=== PATIENT | female | born 1955 | race Caucasian/White ===

== ENCOUNTER → 2016-08-25 | Outpatient (CLI) | payer OTHER ==
[2016-01-12 08:37] VITALS: BP 117/78
[~2016-08-25] MED LIST: ACET325T9 PO; ASPI325T4 PO; ASPI81TA2 PO; ASPI81TA9 PO; ATOR20TA PO; ATOR40TA59 PO; BIOT10003 PO; BUPR150T11 PO; BUPR150T6 PO; CALC-98 PO; CANA300T PO; CHOL500016 PO; CRESTOR10 MG PO; DEXL60CA PO; DULO30CA2 PO; FISH12002 PO; GLIM4TAB2 PO; IBUP800T PO; INSU100I13 SQ; INSU100I17 SQ; INSU100V13 SQ; INSU200I SQ; INSU300I SQ; LACT20SO PO; LEVO100T5 PO; LEVO112T2 PO; LEVO125T5 PO; LEVO137T2 PO; LEVO137T3 PO; LISI1TAB3 PO; LISI1TAB5 PO; LISI1TAB7 PO; MECL12.52 PO; MELO-150 PO; METF500T9 PO; METH-37 PO; METO10TA81 PO; METO25TA9 PO; MULT1TAB52 PO; OLME1TAB PO; OMEG1CAP65 PO; OMEP20CA9 PO; PANT40TA3 PO; POTA20TA4 PO; PREG75CA PO; RABE20TA26 PO; RANI150T6 PO; SENN1TAB61 PO; SENN1TAB70 PO; SITA25TA PO; TOPI50TA38 PO; TRAM50TA PO; UBID100C12 PO; [UNRECOGNIZED DRUG - OTHER] PO
--- NOTE | 2016-08-25 12:00 | RAD ---
DATE: 08/25/2016 EXAM: DIGITAL SCREEN BILAT W/CAD HISTORY: Screening study COMPARISON: 06/14/2012 This study was interpreted with the benefit of Computerized Aided Detection (CAD). FINDINGS: Digital MLO and CC mammograms of both breasts were obtained. Comparison is made to the patient's previous mammograms from [facility] in [place], [place] dated 06/14/2012. The breast parenchyma is composed of scattered fibroglandular densities which can obscure a lesion on mammography (breast density code B). Benign-appearing calcifications are seen scattered throughout both breasts. No spiculated mass is seen. No malignant appearing calcification or area of architectural distortion is noted. Since previous examination there is been no significant interval change. IMPRESSION: BI-RADS Category 1, negative. There is no mammographic evidence of malignancy. Routine yearly screening mammography is recommended for follow-up. BI-RADS CATEGORY: 1 NEGATIVE RECOMMENDED FOLLOW-UP: 12M 12 MONTH FOLLOW-UP PQRS compliance statement: Patient information was entered into a reminder system with a target due date 08/25/2017 for the next mammogram. Mammography is a sensitive method for finding small breast cancers, but it does not detect them all and is not a substitute for careful clinical examination. A negative mammogram does not negate a clinically suspicious finding and should not result in delay in biopsying a clinically suspicious abnormality. "Our facility is accredited by the [employer] Mammography Program."
== END | disposition home or self-care (01) ==
LOC: MAMMO 08:00
PROVIDERS: ATTEND Nurse Practitioner
DX: Z12.31 Encounter for screening mammogram for malignant neoplasm of breast (principal)
CPT/HCPCS: G0202; 77067

== ENCOUNTER 2017-01-22 14:14 | Emergency (ER) | payer SELFPAY ==
[~2017-01-22] VITALS: Ht 167.6 cm; Wt 106.1 kg
[~2017-01-22 14:14] MED LIST changes: +ASPI-612 PO; +ASPI-630 PO; -ASPI325T4 PO; +ASPI325T8 PO; -ASPI81TA2 PO; -ASPI81TA9 PO; +BUPR-192 PO; -BUPR150T6 PO; -DEXL60CA PO; +DEXL60CA2 PO; -IBUP800T PO; +IBUP800T19 PO; -MELO-150 PO; +MELO15TA23 PO; +METO-239 PO; -METO25TA9 PO; -OLME1TAB PO; +OLME1TAB21 PO; -UBID100C12 PO; +UBID100C40 PO
[2017-01-22 14:20] VITALS: BP 142/66
--- NOTE | 2017-01-22 15:35 | PHYS DOC ---
Past History Past Medical History: Depression, Diabetes, High Cholesterol, Hypertension, Hypothyroid, Other Past Surgical History: Appendectomy, Cholecystectomy, , Other Alcohol Use: None Drug Use: None Adult General Chief Complaint Chief Complaint: MULTIPLE COMPLAINTS [facility] HPI Patient is a 61 year old F who presents with right sided trunk pain as well as bilateral foot and lower leg tingling. She describes the right-sided trunk pain as both anterior and posterior involving both the abdomen and thorax. She describes the pain as shooting and lasting only seconds. She is unsure about any exacerbating or alleviating factors. She has no other associated symptoms with this pain. She feels that both legs and feet have had knife like pain that has become constant over the past 2-3 weeks. It is worse with weightbearing and better with rest. She has no other associated symptoms with this pain. Over the past several weeks she has noted her sugar to be in the 300 to 400s Review of Systems Review of Systems Constitutional: Denies fever or chills [] Eyes: Denies change in visual acuity, redness, or eye pain [] HENT: Denies nasal congestion or sore throat [] Respiratory: Denies cough or shortness of breath [] Cardiovascular: No additional information not addressed in HPI [] GI: Denies abdominal pain, nausea, vomiting, bloody stools or diarrhea [] : Denies dysuria or hematuria [] Musculoskeletal: Denies back pain or joint pain [] Integument: Denies rash or skin lesions [] Neurologic: Negative except history of present illness Endocrine: polyuria or polydipsia [] Family History Family History Noncontributory Current Medications Current Medications Medications reviewed Allergies Allergies Allergies Coded Allergies Type Severity Reaction Last Updated Verified cephalexin Allergy Intermediate 09/08/15 No codeine Allergy Intermediate 09/08/15 No dapagliflozin Allergy Intermediate 09/08/15 No iodine Allergy Intermediate HIVES, contrast OK when premedicated 09/08/15 Yes Physical Exam Physical Exam Constitutional: Well developed, well nourished, no acute distress, non-toxic appearance. [] HENT: Normocephalic, atraumatic, Eyes: EOMI, conjunctiva normal, no discharge. [] Neck: Normal range of motion, no tenderness, supple, no stridor. [] Cardiovascular:Heart rate regular rhythm, Lungs & Thorax: Bilateral breath sounds clear to auscultation [] Abdomen: Bowel sounds normal, soft, no tenderness, no masses, no pulsatile masses. [] Skin: Warm, dry, no erythema, no rash. [] Back: No tenderness, no CVA tenderness. [] Extremities: No tenderness, no cyanosis, no clubbing, ROM intact, no edema. [] Neurologic: Alert and oriented X 3, normal motor function, normal sensory function, no focal deficits noted. []Subjective tingling noted in bilateral feet Psychologic: Affect normal, judgement normal, mood normal. [] Current Patient Data Vital Signs Vital Signs Date Time Temp Pulse Resp B/P (MAP) Pulse Ox O2 Delivery O2 Flow Rate FiO2 01/22/17 14:20 97.7 92 18 98 Room Air Lab Results Laboratory Tests Test 01/22/17 14:28 Glucose (Fingerstick) 424 mg/dL (70-99) H EKG EKG [] Radiology/Procedures Radiology/Procedures [] Course & Med Decision Making Course & Med Decision Making Pertinent Labs and Imaging studies reviewed. (See chart for details) Further labs and imaging were declined. Because of this she was strongly advised to return to the emergency room if she develops any new or worsening symptoms Dragon Disclaimer Dragon Disclaimer This chart was dictated in whole or in part using Voice Recognition software in a busy, high-work load, and often noisy Emergency Department environment. It may contain unintended and wholly unrecognized errors or omissions. Departure Departure: Impression: Primary Impression: Neuropathy Disposition: HOME, SELF-CARE Condition: STABLE Referrals: WILLEM ARRIAGA-Giovana (PCP) Patient Instructions: Diabetic Neuropathy, Pain, Neuropathic Additional Instructions: Ivis was seen in the emergency room for pain in her feet and right-sided pain. No emergency medical condition was found on history or physical exam. Her symptoms are most consistent with neuropathic pain related to diabetes and/or fibromyalgia. She was advised follow-up with her primary care doctor as soon as possible for further management. GREGOR PALAFOX MD Jan 22, 2017 15:35
== END 2017-01-22 15:49 | disposition home or self-care (01) ==
LOC: ER 14:17
DX: E11.40 Type 2 diabetes mellitus with diabetic neuropathy, unspecified (principal); I10 Essential (primary) hypertension; E03.9 Hypothyroidism, unspecified; E78.00 Pure hypercholesterolemia, unspecified; Z88.5 Allergy status to narcotic agent; Z88.8 Allergy status to other drugs, medicaments and biological substances; Z88.1 Allergy status to other antibiotic agents; Z91.041 Radiographic dye allergy status
CPT/HCPCS: 82947; 99283

== ENCOUNTER → 2017-02-15 | Outpatient (CLI) | payer OTHER ==
[2017-01-22 14:20] VITALS: BP 142/66
[~2017-02-15] MED LIST changes: -BIOT10003 PO; +BIOT10006 PO
--- NOTE | 2017-02-15 12:26 | RAD ---
Abdominal ultrasound, 02/15/2017: History: Right lower quadrant pain The gallbladder is surgically absent. There is no evidence of a hepatic mass or bile duct dilatation. The pancreas was obscured by overlying bowel. The spleen is of normal size. No renal abnormality is detected. The visualized portions of the abdominal aorta are of normal caliber. Other portions of the aorta and inferior vena cava were obscured by overlying bowel in this large patient. No free fluid is evident in the abdomen. IMPRESSION: 1. Status post cholecystectomy. 2. The abdomen is otherwise unremarkable, although the pancreas and central retroperitoneum were obscured by overlying bowel.
--- NOTE | 2017-02-15 14:02 | RAD ---
Pelvic ultrasound, 02/15/2017: History: Right lower quadrant pain Transabdominal scans were obtained. The uterus and left ovary are reportedly surgically absent. The patient reports that part of the right ovary was left in place, however, no right ovary is visualized sonographically. No pelvic mass or abnormal fluid collection is seen. IMPRESSION: 1. Status post hysterectomy. 2. No pelvic abnormality is detected. 3. CT scanning may be useful for further evaluation, if clinically indicated.
== END | disposition home or self-care (01) ==
LOC: US 09:31
PROVIDERS: ATTEND Family Medicine
DX: E72.20 Disorder of urea cycle metabolism, unspecified (principal); R10.31 Right lower quadrant pain; Z90.710 Acquired absence of both cervix and uterus; Z90.721 Acquired absence of ovaries, unilateral
CPT/HCPCS: 76700; 76856

== ENCOUNTER → 2017-06-06 | Outpatient (CLI) | payer BC ==
--- NOTE | 2017-06-06 08:15 | RAD ---
Cervical spine, 3 views, 06/06/2017: History: Neck pain There is mild disc space narrowing and marginal spurring at C5-6 and C6-7. No fracture or dislocation is identified. The prevertebral soft tissues are unremarkable. IMPRESSION: 1. Mild degenerative disc disease at C5-6 and C6-7. 2. No acute bony abnormality is detected.
== END | disposition home or self-care (01) ==
LOC: PMG 07:35
PROVIDERS: ATTEND Physician Assistant Medical
DX: M50.323 Other cervical disc degeneration at C6-C7 level (principal); F17.200 Nicotine dependence, unspecified, uncomplicated
CPT/HCPCS: 72040

== ENCOUNTER → 2017-06-28 | Outpatient (CLI) | payer BC ==
--- NOTE | 2017-06-28 12:18 | RAD ---
Right upper quadrant ultrasound 06/28/2017 Indication: Elevated liver enzymes Comparison study: None Discussion: Ultrasound evaluation of the right upper quadrant was performed. Static images are submitted to PACS. The pancreas is not visualized secondary to overlying gas-filled bowel. The IVC is poorly visualized. Prior cholecystectomy is noted. The liver is partially visualized. Portal venous flow appears to be in the normal direction. Portions of the dome liver are particularly obscured. The liver appears to be mildly diffusely hyperechoic. Findings suggest hepatic steatosis. Liver is top normal in size measuring 17 cm longitudinally. Visualized portions of liver demonstrate no focal abnormality. The right kidney is unremarkable in appearance measuring 11.8 cm in length. Impression: 1. Limited study 2. Possible hepatic steatosis 3. Prior cholecystectomy
== END | disposition home or self-care (01) ==
LOC: US 07:37
PROVIDERS: ATTEND Physician Assistant Medical
DX: R79.89 Other specified abnormal findings of blood chemistry (principal); I12.9 Hypertensive chronic kidney disease with stage 1 through stage 4 chronic kidney disease, or unspecified chronic kidney disease; E11.22 Type 2 diabetes mellitus with diabetic chronic kidney disease; E11.43 Type 2 diabetes mellitus with diabetic autonomic (poly)neuropathy; Z79.4 Long term (current) use of insulin; N18.3 Chronic kidney disease, stage 3 (moderate); F17.200 Nicotine dependence, unspecified, uncomplicated
CPT/HCPCS: 76705

== ENCOUNTER 2017-07-08 13:04 | Emergency (ER) | payer BC ==
[~2017-07-08] VITALS: Ht 167.6 cm; Wt 99.1 kg
--- NOTE | 2017-07-08 13:35 | EKG ---
[address] [address] Test Date: 2017-07-08 Test Time: 13:33:12 Pat Name: JW HOLLAND Department: Room: Gender: F Doper Operator: : 1955 Requested By: KATIE MARTINEZ Order Number: [id number] Reading MD: Measurements Intervals [place] Rate: 101 P: -17 VT: 120 QRS: 19 QRSD: 86 T: 28 QT: 360 QTc: 468 Interpretive Statements SINUS TACHYCARDIA QRS(T) CONTOUR ABNORMALITY CONSIDER ANTEROSEPTAL MYOCARDIAL DAMAGE POSSIBLY ABNORMAL ECG RI6.01 Compared to ECG 01/07/2016 16:06:00 Sinus rhythm no longer present
[2017-07-08 13:42] LABS: BASO % 0 % (0-3); EOS # 0.1 x10^3/uL (0.0-0.7); EOS % 1 % (0-3); HEMATOCRIT 43.9 % (36.0-47.0); HEMOGLOBIN 14.5 g/dL (12.0-15.5); LYMPH # 1.9 x10^3/uL (1.0-4.8); LYMPH % 27 % (24-48); MEAN CORPUSCULAR HEMOGLOBIN 28 pg (25-35); MEAN CORPUSCULAR HGB CONC 33 g/dL (31-37); MEAN CORPUSCULAR VOLUME 85 fL (79-100); MONO # 0.7 x10^3/uL (0.0-1.1); MONO % 10 % (0-9); NEUT # 4.3 x10^3uL (1.8-7.7); NEUT % 61 % (31-73); PLATELET COUNT 139 x10^3/uL (140-400); RED BLOOD COUNT 5.14 x10^6/uL (3.50-5.40); RED CELL DISTRIBUTION WIDTH 18.6 % (11.5-14.5); WHITE BLOOD COUNT 7.1 x10^3/uL (4.0-11.0)
[2017-07-08 13:58] LABS: BGAS PH 7.48 (7.35-7.45)
[2017-07-08 14:06] LABS: ALBUMIN 3.3 g/dL (3.4-5.0); ALBUMIN/GLOBULIN RATIO 0.7 (1.0-1.7); CALCIUM 9.4 mg/dL (8.5-10.1); CREATININE 0.8 mg/dL (0.6-1.0); GFR 72.9; POTASSIUM 3.9 mmol/L (3.5-5.1); TOTAL BILIRUBIN 0.9 mg/dL (0.2-1.0); TOTAL PROTEIN 7.8 g/dL (6.4-8.2)
--- NOTE | 2017-07-08 14:09 | RAD ---
Indication: Confusion, dizziness, headache and weakness for 2 weeks. Technique: CT head without IV contrast Comparison: Previous study from 01/07/2016 Findings: No pathologic extra-axial or intra-axial fluid collection. The ventricles and basal cisterns are within normal limits. No acute intracranial lead. No focal loss of walton-white differentiation. No calvarial lesions. Visualized paranasal sinuses and mastoid air cells are clear. Orbits are within normal limits. Impression: No acute intracranial process on this noncontrast study. PQRS Compliance Statement: One or more of the following individualized dose reduction techniques were utilized for this examination: 1. Automated exposure control 2. Adjustment of the mA and/or kV according to patient size 3. Use of iterative reconstruction technique
--- NOTE | 2017-07-08 14:10 | RAD ---
PROCEDURE: PORTABLE CHEST 1V CLINICAL INDICATION: confusion COMPARISON: Previous study from 01/07/2016 FINDINGS: No pneumothorax identified. Cardiac and mediastinal contours unremarkable. No pulmonary consolidation or acute airspace disease. No acute osseous abnormalities identified. IMPRESSION: No pulmonary consolidation or acute airspace disease.
[2017-07-08] MEDS ORDERED: IV NORMAL SALINE 1,000ML 1,000 ML IV ONE (14:30)
[2017-07-08] MEDS ORDERED: ONDANSETRON PF 4 MG/2 ML VIAL. IV ONE (14:30)
[2017-07-08] MEDS ORDERED: PIPERACILLIN/TAZOBACTAM 3.375 GM in IV NORMAL SALINE 50ML 50 ML IV ONE (14:30)
[2017-07-08] MEDS ORDERED: LACTULOSE 20 GM/30 ML SOLUTION. PO ONE (14:30)
[2017-07-08] MEDS ORDERED: PIPERACILLIN/TAZOBACTAM 3.375 GM VIAL IV ONE (14:38)
[2017-07-08] MEDS ORDERED: IV NORMAL SALINE 50ML 50 ML ONE (14:38)
[2017-07-08 15:17] LABS: AMPHETAMINE/METHAMPHETAMINE NEG (NEG); BARBITURATES NEG (NEG); BENZODIAZEPINES NEG (NEG); CANNABINOIDS NEG (NEG); COCAINE NEG (NEG); METHADONE NEG (NEG); OPIATES POS (NEG); PHENCYCLIDINE NEG (NEG)
[2017-07-08 15:21] LABS: BACTERIA,URINE 0 /HPF (0-FEW); BILIRUBIN,URINE NEG (NEG); CLARITY,URINE CLEAR; COLOR,URINE YELLOW; GLUCOSE,URINE NEG (NEG); NITRITE,URINE NEG (NEG); RBC,URINE RARE /HPF (0-2); SQUAMOUS EPITHELIAL CELL,UR MOD /LPF; UROBILINOGEN,URINE 0.2 mg/dL (0.2 mg/dL); WBC,URINE OCC /HPF (0-4)
--- NOTE | 2017-07-08 15:33 | PHYS DOC ---
Past History Past Medical History: Depression, Diabetes, High Cholesterol, Hypertension, Hypothyroid, Other Past Surgical History: Appendectomy, Cholecystectomy, , Other Alcohol Use: None Drug Use: None Adult General Chief Complaint Chief Complaint: NAUSEA/VOMITING/DIARRHEA HPI HPI 62-year-old female patient with multiple medical problems and history of elevation of ammonia brought in by her friend because of increasing confusion for one month and complaining of right chest wall pain intermittently. Patient had 3 episodes of vomiting today. Patient had a blood test one week ago at her doctor's office and had an ammonia level of 155 and was told continue lactulose. Patient is alert and oriented but responding slow and unable to give history and history was taking from her friend. Patient did not have history of on Cardizem, hepatitis, cirrhosis, cancer. Patient had 1 episode of high ammonia level with hospitalization without finding problem. Patient currently taking lactulose. Review of Systems Review of Systems Constitutional: Denies fever or chills [] Eyes: Denies change in visual acuity, redness, or eye pain [] HENT: Denies nasal congestion or sore throat [] Respiratory: Denies cough or shortness of breath [] Cardiovascular: No additional information not addressed in HPI [] GI: Denies abdominal pain, bloody stools or diarrhea [, reports nausea and vomiting] : Denies dysuria or hematuria [] Musculoskeletal: Denies back pain or joint pain [] Integument: Denies rash or skin lesions [] Neurologic: Denies headache, focal weakness or sensory changes, reports confusion [] Endocrine: Denies polyuria or polydipsia [] All other systems were reviewed and found to be within normal limits, except as documented in this note. Current Medications Current Medications Current Medications Medications (Trade) Dose Ordered Sig/Akbar Start Time Stop Time Status Last Admin Dose Admin Lactulose (Lactulose) 40 gm 1X ONCE 07/08/17 14:30 07/08/17 14:31 DC Ondansetron HCl (Zofran) 4 mg 1X ONCE 07/08/17 14:30 07/08/17 14:31 DC 07/08/17 14:43 4 MG Piperacillin Sod/ Tazobactam Sod (Zosyn) 3.375 gm STK-MED ONCE 07/08/17 14:38 07/08/17 14:39 DC Piperacillin Sod/ Tazobactam Sod 3.375 gm/Sodium Chloride 50 ml @ 100 mls/hr 1X ONCE 07/08/17 14:30 07/08/17 14:59 DC 07/08/17 14:43 100 MLS/HR Sodium Chloride 50 ml @ As Directed STK-MED ONCE 07/08/17 14:38 07/08/17 14:39 DC Allergies Allergies Allergies Coded Allergies Type Severity Reaction Last Updated Verified cephalexin Allergy Intermediate 09/08/15 No codeine Allergy Intermediate 09/08/15 No dapagliflozin Allergy Intermediate 09/08/15 No iodine Allergy Intermediate HIVES, contrast OK when premedicated 09/08/15 Yes Physical Exam Physical Exam Constitutional: Mild distress, non-toxic appearance. [] HENT: Normocephalic, atraumatic, bilateral external ears normal, oropharynx moist, no oral exudates, nose normal. [] Eyes: PERRLA, EOMI, conjunctiva normal, no discharge. [] Neck: Normal range of motion, no tenderness, supple, no stridor. [] Cardiovascular:Heart rate regular rhythm, no murmur [] Lungs & Thorax: Bilateral breath sounds clear to auscultation [] Abdomen: Bowel sounds normal, soft, no tenderness, no masses, no pulsatile masses. [] Skin: Warm, dry, no erythema, no rash. [] Back: No tenderness, no CVA tenderness. [] Extremities: No tenderness, no cyanosis, no clubbing, ROM intact, no edema. [] Neurologic: Alert and oriented X 3, slow respond to question and movement[] Current Patient Data Vital Signs Vital Signs Date Time Temp Pulse Resp B/P (MAP) Pulse Ox O2 Delivery O2 Flow Rate FiO2 07/08/17 14:55 98 18 163/59 (93) 98 Room Air 07/08/17 13:33 98.1 Lab Results Laboratory Tests Test 07/08/17 13:22 07/08/17 13:28 Blood pH 7.48 (7.35-7.45) H Blood Gas PCO2 34 mmHg (35-45) L Blood Gas PO2 77 mmHg (80-100) L Blood Gas HCO3 25 mmol/L (22-26) Arterial Bld O2 Saturation (Calc) 96 % (92-99) FiO2 21 % White Blood Count 7.1 x10^3/uL (4.0-11.0) Red Blood Count 5.14 x10^6/uL (3.50-5.40) Hemoglobin 14.5 g/dL (12.0-15.5) Hematocrit 43.9 % (36.0-47.0) Mean Corpuscular Volume 85 fL (79-100) Mean Corpuscular Hemoglobin 28 pg (25-35) Mean Corpuscular Hemoglobin Concent 33 g/dL (31-37) Red Cell Distribution Width 18.6 % (11.5-14.5) H Platelet Count 139 x10^3/uL (140-400) L Neutrophils (%) (Auto) 61 % (31-73) Lymphocytes (%) (Auto) 27 % (24-48) Monocytes (%) (Auto) 10 % (0-9) H Eosinophils (%) (Auto) 1 % (0-3) Basophils (%) (Auto) 0 % (0-3) Neutrophils # (Auto) 4.3 x10^3uL (1.8-7.7) Lymphocytes # (Auto) 1.9 x10^3/uL (1.0-4.8) Monocytes # (Auto) 0.7 x10^3/uL (0.0-1.1) Eosinophils # (Auto) 0.1 x10^3/uL (0.0-0.7) Basophils # (Auto) 0.0 x10^3/uL (0.0-0.2) Prothrombin Time 11.6 SEC (9.4-11.4) H Prothrombin Time INR 1.1 (0.9-1.1) PTT 24 SEC (23-33) Sodium Level 141 mmol/L (136-145) Potassium Level 3.9 mmol/L (3.5-5.1) Chloride Level 105 mmol/L (98-107) Carbon Dioxide Level 27 mmol/L (21-32) Anion Gap 9 (6-14) Blood Urea Nitrogen 14 mg/dL (7-20) Creatinine 0.8 mg/dL (0.6-1.0) Estimated GFR (Cockcroft-Gault) 72.9 BUN/Creatinine Ratio 18 (6-20) Glucose Level 204 mg/dL (70-99) H Lactic Acid Level 2.2 mmol/L (0.4-2.0) H Calcium Level 9.4 mg/dL (8.5-10.1) Magnesium Level 2.0 mg/dL (1.8-2.4) Total Bilirubin 0.9 mg/dL (0.2-1.0) Aspartate Amino Transferase (AST) 56 U/L (15-37) H Alanine Aminotransferase (ALT) 47 U/L (14-59) Alkaline Phosphatase 171 U/L (46-116) H Ammonia 129 mcmol/L (11-34) H Creatine Kinase 128 U/L (26-192) Creatine Kinase MB (Mass) 1.1 ng/mL (0.0-3.6) Creatine Kinase MB Relative Index 0.9 % (0-4) Troponin I Quantitative < 0.017 ng/mL (0-0.055) [id number] Natriuretic Peptide 6 pg/mL (0-124) Total Protein 7.8 g/dL (6.4-8.2) Albumin 3.3 g/dL (3.4-5.0) L Albumin/Globulin Ratio 0.7 (1.0-1.7) L Lipase 137 U/L (73-393) EKG EKG [] Radiology/Procedures Radiology/Procedures [] [address] [address] IMAGING REPORT Signed PATIENT: JW HOLLAND ACCOUNT: [id number] : 1955 LOCATION: ER AGE: 62 SEX: F EXAM STATUS: REG ER ORD. PHYSICIAN: KATIE MARTINEZ MD REASON: confusion PROCEDURE: PORTABLE CHEST 1V PROCEDURE: PORTABLE CHEST 1V CLINICAL INDICATION: confusion COMPARISON: Previous study from 01/07/2016 FINDINGS: No pneumothorax identified. Cardiac and mediastinal contours unremarkable. No pulmonary consolidation or acute airspace disease. No acute osseous abnormalities identified. IMPRESSION: No pulmonary consolidation or acute airspace disease. DICTATED AND SIGNED BY: ERENDIRA DOE DO DATE: 07/08/17 1401 CC: KATIE MARTINEZ MD; DELORIS KOROMA ~ [address] [address] IMAGING REPORT Signed PATIENT: JW HOLLAND ACCOUNT: [id number] : 1955 LOCATION: ER AGE: 62 SEX: F EXAM STATUS: REG ER ORD. PHYSICIAN: KATIE MARTINEZ MD REASON: confusion PROCEDURE: CT HEAD WO CONTRAST Indication: Confusion, dizziness, headache and weakness for 2 weeks. Technique: CT head without IV contrast Comparison: Previous study from 01/07/2016 Findings: No pathologic extra-axial or intra-axial fluid collection. The ventricles and basal cisterns are within normal limits. No acute intracranial lead. No focal loss of walton-white differentiation. No calvarial lesions. Visualized paranasal sinuses and mastoid air cells are clear. Orbits are within normal limits. Impression: No acute intracranial process on this noncontrast study. PQRS Compliance Statement: One or more of the following individualized dose reduction techniques were utilized for this examination: 1. Automated exposure control 2. Adjustment of the mA and/or kV according to patient size 3. Use of iterative reconstruction technique DICTATED AND SIGNED BY: ERENDIRA DOE DO DATE: 07/08/17 1404 CC: KATIE MARTINEZ MD; DELORIS KOROMA ~ Course & Med Decision Making Course & Med Decision Making Pertinent Labs and Imaging studies reviewed. (See chart for details) Evaluation of patient in ER showed 62-year-old female patient with history of hepatic encephalopathy brought in because of increase of confusion and nausea and vomiting. Patient had mild confusion but was able to answer to question delay. Ammonia level was 129 and previous ammonia level was around 30-60s with maximum level of 112. Liver enzymes was mildly elevated. Lactic acid was 2.2. 1 dose of Zosyn was given. UA is pending. Dr. Marrufo on-call hospitalist was informed at [phone] and he recommended to transfer patient to [facility] to have GI specialist available. Dr. Argueta on-call hospitalist at [facility] accepted transfer at 1435. Patient informed about plan of care. 1 dose of lactulose by mouth was given in ER. [] Dragon Disclaimer Dragon Disclaimer This electronic medical record was generated, in whole or in part, using a voice recognition dictation system. Departure Departure: Impression: Primary Impression: Hepatic encephalopathy Additional Impressions: Elevated lactic acid level Uncontrolled diabetes mellitus Nausea and vomiting Disposition: XFER SHT-TRM HOSP ([facility] at 1435) Condition: IMPROVED Referrals: DELORIS KOROMA (PCP) Critical Care Time Critical care time was [70] minutes exclusive of procedures. Problem Qualifiers KATIE MARTINEZ MD Jul 08, 2017 15:33
[2017-07-08 16:16] VITALS: BP 152/67
== END 2017-07-08 17:20 | disposition short-term general hospital (02) ==
LOC: ER 13:04
DX: K72.90 Hepatic failure, unspecified without coma (principal); R74.0 Nonspecific elevation of levels of transaminase and lactic acid dehydrogenase [LDH]; E11.9 Type 2 diabetes mellitus without complications; E78.00 Pure hypercholesterolemia, unspecified; E03.9 Hypothyroidism, unspecified; I10 Essential (primary) hypertension; F32.9 Major depressive disorder, single episode, unspecified; Z88.5 Allergy status to narcotic agent; Z88.8 Allergy status to other drugs, medicaments and biological substances; Z88.1 Allergy status to other antibiotic agents; Z91.041 Radiographic dye allergy status
CPT/HCPCS: 36415; 36600; 70450; 71045; 80053; 80307; 81001; 82140; 82553; 82803; 83605; 83690; 83735; 83880; 84484; 85025; 85610; 85730; 93005; 96365; 96366; 96375; 99291; J2405; J2543; G0479; J7030

== ENCOUNTER → 2017-07-23 | Outpatient (CLI) | payer BC ==
[2017-07-08 16:16] VITALS: BP 152/67
--- NOTE | 2017-07-23 09:15 | RAD ---
Left wrist, 4 views, 07/23/2017: History: Pain, wrist injury There is an old nonunited fracture fragment or accessory ossicle at the tip of the styloid process of the distal ulna. Mild deformity of the styloid process of the distal radius appears old. No acute fracture or dislocation is identified. IMPRESSION: No acute bony abnormality is detected.
== END | disposition home or self-care (01) ==
LOC: PMG 07:45
PROVIDERS: ATTEND Physician Assistant Medical
DX: M25.532 Pain in left wrist (principal)
CPT/HCPCS: 73110

== ENCOUNTER 2017-10-12 17:18 | Emergency (ER) | payer BC ==
[~2017-10-12] VITALS: Ht 167.6 cm; Wt 105.8 kg
[~2017-10-12 17:18] MED LIST changes: +RANI150T21 PO; -RANI150T6 PO
[2017-10-12] MEDS ORDERED: IV NORMAL SALINE 1,000ML 1,000 ML IV ONE (18:15)
[2017-10-12 19:18] LABS: BASO % 0 % (0-3); EOS # 0.1 x10^3/uL (0.0-0.7); EOS % 1 % (0-3); HEMATOCRIT 42.9 % (36.0-47.0); HEMOGLOBIN 14.2 g/dL (12.0-15.5); LYMPH # 3.3 x10^3/uL (1.0-4.8); LYMPH % 33 % (24-48); MEAN CORPUSCULAR HEMOGLOBIN 31 pg (25-35); MEAN CORPUSCULAR HGB CONC 33 g/dL (31-37); MEAN CORPUSCULAR VOLUME 93 fL (79-100); MONO # 0.9 x10^3/uL (0.0-1.1); MONO % 9 % (0-9); NEUT # 5.9 x10^3uL (1.8-7.7); NEUT % 58 % (31-73); PLATELET COUNT 136 x10^3/uL (140-400); RED BLOOD COUNT 4.61 x10^6/uL (3.50-5.40); RED CELL DISTRIBUTION WIDTH 15.9 % (11.5-14.5); WHITE BLOOD COUNT 10.2 x10^3/uL (4.0-11.0)
[2017-10-12 19:27] LABS: ALBUMIN 2.8 g/dL (3.4-5.0); CALCIUM 9.3 mg/dL (8.5-10.1); CREATININE 0.9 mg/dL (0.6-1.0); DIRECT BILIRUBIN 0.2 mg/dL (0.0-0.2); GFR 63.7; POTASSIUM 4.1 mmol/L (3.5-5.1); TOTAL BILIRUBIN 0.7 mg/dL (0.2-1.0); TOTAL PROTEIN 6.7 g/dL (6.4-8.2)
[2017-10-12 19:59] LABS: BILIRUBIN,URINE NEG (NEG); CLARITY,URINE CLEAR; COLOR,URINE YELLOW; GLUCOSE,URINE >=1000 mg/dL (NEG); NITRITE,URINE NEG (NEG); UROBILINOGEN,URINE 0.2 mg/dL (0.2 mg/dL)
[2017-10-12 20:00] LABS: BACTERIA,URINE 0 /HPF (0-FEW); RBC,URINE 0 /HPF (0-2); SQUAMOUS EPITHELIAL CELL,UR MOD /LPF; WBC,URINE 0 /HPF (0-4)
[2017-10-12 20:15] VITALS: BP 117/79
--- NOTE | 2017-10-12 20:30 | ED.ADGEN ---
Past History Past Medical History: Depression, Diabetes, High Cholesterol, Hypertension, Hypothyroid, Other Past Surgical History: Appendectomy, Cholecystectomy, , Hysterectomy, Tonsillectomy, Other Alcohol Use: None Drug Use: None Adult General HPI HPI Patient is a 62 who presents at the request of her primary care doctor for evaluation of possible hyperammonemia. The patient has a known history of elevated ammonia levels. She was previously treated with lactulose for this condition. She is followed at the [facility] for liver failure. She had recently been taken off of the lactulose for reasons that are unclear to the family. Over the last several days, they have noted her to have some slowing of her speech. They state these are the early signs of elevated ammonia for this patient. She is not currently taking lactulose. She did undergo a transarterial liver biopsy at [facility] yesterday. She has not been having any associated complications following this procedure. I did call the primary care doctor earlier this evening and were told to go to the ER to have the ammonia level checked. The patient herself has no immediate complaints. She has no shortness of breath or chest pain. She has no focal neurologic complaints. She is alert and oriented. She is answering all questions appropriately. Review of Systems Review of Systems Constitutional: Denies fever or chills Eyes: Denies change in visual acuity HENT: Denies nasal congestion or sore throat Respiratory: Denies cough or shortness of breath Cardiovascular: No additional information not addressed in HPI GI: Denies abdominal pain, nausea, vomiting, bloody stools or diarrhea : Denies dysuria or hematuria Musculoskeletal: Denies back pain or joint pain Integument: Denies rash or skin lesions Neurologic: Denies headache, focal weakness or sensory changes Endocrine: Denies polyuria or polydipsia All other systems were reviewed and found to be within normal limits, except as documented in this note. Current Medications Current Medications Current Medications Medications (Trade) Dose Ordered Sig/Akbar Start Time Stop Time Status Last Admin Dose Admin Sodium Chloride 1,000 ml @ 500 mls/hr 1X ONCE 10/12/17 18:15 10/12/17 20:14 DC Allergies Allergies Allergies Coded Allergies Type Severity Reaction Last Updated Verified cephalexin Allergy Intermediate 09/08/15 No codeine Allergy Intermediate 09/08/15 No dapagliflozin Allergy Intermediate 09/08/15 No iodine Allergy Intermediate HIVES, contrast OK when premedicated 4/27/16 Yes Physical Exam Physical Exam Constitutional: Well developed, well nourished, no acute distress HENT: Normocephalic, atraumatic, bilateral external ears normal, oropharynx moist Eyes: PERRLA, EOMI, conjunctiva normal Neck: Normal range of motion, no tenderness, supple Cardiovascular:Heart rate regular rhythm, no murmur Lungs & Thorax: Bilateral breath sounds clear to auscultation Abdomen: Bowel sounds normal, soft, no tenderness Skin: Warm, dry, no erythema, no rash Extremities: No tenderness, no edema Neurologic: Alert and oriented X 3 but she is slow to answer questions although she answers questions appropriately. She has no asterixis. Her cranial nerves II through XII are intact bilaterally. She has a normal steady gait. Psychologic: Affect normal, judgement normal, mood normal. [] Current Patient Data Vital Signs Vital Signs Date Time Temp Pulse Resp B/P (MAP) Pulse Ox O2 Delivery O2 Flow Rate FiO2 10/12/17 20:15 97.6 78 26 117/79 (92) 98 Room Air Lab Results Laboratory Tests Test 10/12/17 17:52 10/12/17 18:54 10/12/17 19:19 Glucose (Fingerstick) 369 mg/dL (70-99) H White Blood Count 10.2 x10^3/uL (4.0-11.0) Red Blood Count 4.61 x10^6/uL (3.50-5.40) Hemoglobin 14.2 g/dL (12.0-15.5) Hematocrit 42.9 % (36.0-47.0) Mean Corpuscular Volume 93 fL (79-100) Mean Corpuscular Hemoglobin 31 pg (25-35) Mean Corpuscular Hemoglobin Concent 33 g/dL (31-37) Red Cell Distribution Width 15.9 % (11.5-14.5) H Platelet Count 136 x10^3/uL (140-400) L Neutrophils (%) (Auto) 58 % (31-73) Lymphocytes (%) (Auto) 33 % (24-48) Monocytes (%) (Auto) 9 % (0-9) Eosinophils (%) (Auto) 1 % (0-3) Basophils (%) (Auto) 0 % (0-3) Neutrophils # (Auto) 5.9 x10^3uL (1.8-7.7) Lymphocytes # (Auto) 3.3 x10^3/uL (1.0-4.8) Monocytes # (Auto) 0.9 x10^3/uL (0.0-1.1) Eosinophils # (Auto) 0.1 x10^3/uL (0.0-0.7) Basophils # (Auto) 0.0 x10^3/uL (0.0-0.2) Sodium Level 134 mmol/L (136-145) L Potassium Level 4.1 mmol/L (3.5-5.1) Chloride Level 100 mmol/L (98-107) Carbon Dioxide Level 27 mmol/L (21-32) Anion Gap 7 (6-14) Blood Urea Nitrogen 25 mg/dL (7-20) H Creatinine 0.9 mg/dL (0.6-1.0) Estimated GFR (Cockcroft-Gault) 63.7 Glucose Level 376 mg/dL (70-99) H Calcium Level 9.3 mg/dL (8.5-10.1) Total Bilirubin 0.7 mg/dL (0.2-1.0) Direct Bilirubin 0.2 mg/dL (0.0-0.2) Aspartate Amino Transferase (AST) 32 U/L (15-37) Alanine Aminotransferase (ALT) 40 U/L (14-59) Alkaline Phosphatase 165 U/L (46-116) H Ammonia 50 mcmol/L (11-34) H Total Protein 6.7 g/dL (6.4-8.2) Albumin 2.8 g/dL (3.4-5.0) L Urine Collection Type Void Urine Color Yellow Urine Clarity Clear Urine pH 6.0 Urine Specific [place] 1.025 Urine Protein Neg (NEG-TRACE) Urine Glucose (UA) >=1000 mg/dL (NEG) Urine Ketones (Stick) Trace mg/dL (NEG) Urine Blood Neg (NEG) Urine Nitrite Neg (NEG) Urine Bilirubin Neg (NEG) Urine Urobilinogen Dipstick 0.2 mg/dL (0.2 mg/dL) Urine Leukocyte Esterase Neg (NEG) Urine RBC 0 /HPF (0-2) Urine WBC 0 /HPF (0-4) Urine Squamous Epithelial Cells Mod /LPF Urine Bacteria 0 /HPF (0-FEW) EKG EKG [] Radiology/Procedures Radiology/Procedures [] Course & Med Decision Making Course & Med Decision Making Pertinent Labs and Imaging studies reviewed. (See chart for details) Patient was seen and examined in the emergency department. She had basic labs and urinalysis completed. There were no acute findings. Her ammonia level was 50. The upper limit of normal is 34. It is unclear if this level is high enough to cause her symptoms although the family states that it is. She had no asterixis. She had no acute findings consistent with encephalopathy this visit. Her neurologic exam was otherwise normal. I did offer the patient a CT scan of the head to further evaluate for any sort of slowing of her speech symptoms although both the patient and her family member declined this study. They were requesting discharge stating that only needed to know if she should start her lactulose are not. I advised that it would be harmless for her to start the lactulose and then it may be of benefit. They are also advised to follow-up with her primary care doctor on Sunday or return to the ER over the weekend if she develops any new or more worrisome symptoms. Final Impression Final Impression Mildly elevated ammonia level Gabrielle Disclaimer Gabrielle Disclaimer This electronic medical record was generated, in whole or in part, using a voice recognition dictation system. BLANCA MOROCHO DO Oct 12, 2017 20:30
== END 2017-10-12 20:20 | disposition home or self-care (01) ==
LOC: ER 17:18
DX: E72.20 Disorder of urea cycle metabolism, unspecified (principal); E11.9 Type 2 diabetes mellitus without complications; E78.00 Pure hypercholesterolemia, unspecified; I10 Essential (primary) hypertension; E03.9 Hypothyroidism, unspecified; Z90.49 Acquired absence of other specified parts of digestive tract; Z98.890 Other specified postprocedural states; Z90.710 Acquired absence of both cervix and uterus; Z88.1 Allergy status to other antibiotic agents; Z88.5 Allergy status to narcotic agent; Z88.8 Allergy status to other drugs, medicaments and biological substances; Z91.041 Radiographic dye allergy status
CPT/HCPCS: 36415; 80048; 80076; 81001; 82140; 82947; 85025; 99284

== ENCOUNTER 2017-10-14 21:21 | Inpatient (IN) | payer BC ==
[~2017-10-14] VITALS: Ht 167.6 cm; Wt 107.0 kg
--- NOTE | 2017-10-14 22:44 | PHYS DOC ---
Past History Past Medical History: Depression, Diabetes, High Cholesterol, Hypertension, Hypothyroid, Other Past Surgical History: Appendectomy, Cholecystectomy, , Hysterectomy, Tonsillectomy, Other Alcohol Use: None Drug Use: None Adult General Chief Complaint Chief Complaint: WEAKNESS/GENERALIZED HPI HPI Patient is a 62 year old female who presents with her to the emergency department for evaluation of disorientation and generalized weakness. The patient was seen 2 days ago in the emergency department where she was found to have mildly elevated ammonia levels. The patient is currently having this worked up at [facility] and underwent a biopsy earlier this week with results pending at this time. The cause of the patient's elevated ammonia levels is unclear. The patient after evaluation 2 days ago was instructed to start on lactulose which she has done. Despite taking lactulose, the patient and the patient's state that she has becoming more weak and having difficulty with her balance. She is also given having disorientation at home though she is answering my questions appropriately at this time. Patient denies any localizing weakness or pain at this time. The patient's concerned that her ammonia levels are high and she has had similar symptoms in the past when they were high requiring hospitalization and treatment. Review of Systems Review of Systems Constitutional: Denies fever or chills [] Eyes: Denies change in visual acuity, redness, or eye pain [] HENT: Denies nasal congestion or sore throat [] Respiratory: Denies cough or shortness of breath [] Cardiovascular: Denies chest pain or edema[] GI: Denies abdominal pain, nausea, vomiting, bloody stools or diarrhea [] : Denies dysuria or hematuria [] Musculoskeletal: Denies back pain or joint pain [] Integument: Denies rash or skin lesions [] Neurologic: Disorientation, headache, denies focal weakness or sensory changes [ ] All other systems were reviewed and found to be within normal limits, except as documented in this note. Allergies Allergies Allergies Coded Allergies Type Severity Reaction Last Updated Verified cephalexin Allergy Intermediate 09/08/15 No codeine Allergy Intermediate 09/08/15 No dapagliflozin Allergy Intermediate 09/08/15 No iodine Allergy Intermediate HIVES, contrast OK when premedicated 09/08/15 Yes Physical Exam Physical Exam Constitutional: Drowsy, afebrile, no acute distress. [] HENT: Normocephalic, atraumatic, bilateral external ears normal, oropharynx moist, no oral exudates, nose normal. [] Eyes: PERRLA, EOMI, conjunctiva normal, no discharge. [] Neck: Normal range of motion, no tenderness, supple, no stridor. [] Cardiovascular:Heart rate regular rhythm, no murmur [] Lungs & Thorax: Bilateral breath sounds clear to auscultation [] Abdomen: Bowel sounds normal, soft, no tenderness, no masses, no pulsatile masses. [] Skin: Warm, dry, no erythema, no rash. [] Back: No tenderness, no CVA tenderness. [] Extremities: No tenderness, no cyanosis, no clubbing, ROM intact, no edema. [] Neurologic: Alert and oriented X 3, normal motor function, normal sensory function, no focal deficits noted. [] Current Patient Data Vital Signs Vital Signs Date Time Temp Pulse Resp B/P (MAP) Pulse Ox O2 Delivery O2 Flow Rate FiO2 10/15/17 02:58 97.9 72 20 119/66 (83) 99 Room Air Lab Results Laboratory Tests Test 10/14/17 22:10 10/15/17 00:25 10/15/17 01:24 White Blood Count 5.6 x10^3/uL Red Blood Count 4.63 x10^6/uL Hemoglobin 14.4 g/dL Hematocrit 43.1 % Mean Corpuscular Volume 93 fL Mean Corpuscular Hemoglobin 31 pg Mean Corpuscular Hemoglobin Concent 34 g/dL Red Cell Distribution Width 15.8 % Platelet Count 120 x10^3/uL Neutrophils (%) (Auto) 47 % Lymphocytes (%) (Auto) 40 % Monocytes (%) (Auto) 10 % Eosinophils (%) (Auto) 3 % Basophils (%) (Auto) 0 % Neutrophils # (Auto) 2.6 x10^3uL Lymphocytes # (Auto) 2.2 x10^3/uL Monocytes # (Auto) 0.6 x10^3/uL Eosinophils # (Auto) 0.2 x10^3/uL Basophils # (Auto) 0.0 x10^3/uL Troponin I Quantitative < 0.017 ng/mL Urine Collection Type Unknown Urine Color Yellow Urine Clarity Clear Urine pH 7.0 Urine Specific [place] 1.015 Urine Protein Neg Urine Glucose (UA) >=1000 mg/dL Urine Ketones (Stick) Neg mg/dL Urine Blood Neg Urine Nitrite Neg Urine Bilirubin Neg Urine Urobilinogen Dipstick 0.2 mg/dL Urine Leukocyte Esterase Neg Urine RBC 0 /HPF Urine WBC 1-4 /HPF Urine Squamous Epithelial Cells Few /LPF Urine Bacteria 0 /HPF Urine Opiates Screen Neg Urine Methadone Screen Neg Urine Barbiturates Neg Urine Phencyclidine Screen Neg Urine Amphetamine/Methamphetamine Neg Urine Benzodiazepines Screen Neg Urine Cocaine Screen Neg Urine Cannabinoids Screen Neg Urine Ethyl Alcohol Neg Sodium Level 140 mmol/L Potassium Level 4.3 mmol/L Chloride Level 106 mmol/L Carbon Dioxide Level 28 mmol/L Anion Gap 6 Blood Urea Nitrogen 24 mg/dL Creatinine 0.9 mg/dL Estimated GFR (Cockcroft-Gault) 63.7 BUN/Creatinine Ratio 27 Glucose Level 317 mg/dL Calcium Level 8.7 mg/dL Magnesium Level 2.4 mg/dL Total Bilirubin 0.7 mg/dL Aspartate Amino Transf (AST/SGOT) 44 U/L Alanine Aminotransferase (ALT/SGPT) 43 U/L Alkaline Phosphatase 152 U/L Ammonia 123 mcmol/L Creatine Kinase 38 U/L Creatine Kinase MB (Mass) < 0.5 ng/mL Creatine Kinase MB Relative Index 1.3 % Total Protein 6.4 g/dL Albumin 2.7 g/dL Albumin/Globulin Ratio 0.7 Current Medications Medications (Trade) Dose Ordered Sig/Akbar Route PRN Reason Start Time Stop Time Status Last Admin Dose Admin Ondansetron HCl (Zofran Odt) 4 mg 1X ONCE PO 10/15/17 00:00 10/15/17 00:00 DC EKG EKG Interpreted by me: Heart rate 73, sinus rhythm, normal intervals, normal axis, no acute ST/T-wave abnormalities present[] Radiology/Procedures Radiology/Procedures [address] [address] IMAGING REPORT Signed PATIENT: JW HOLLAND ACCOUNT: [id number] : 1955 LOCATION: ER AGE: 62 SEX: F EXAM STATUS: REG ER ORD. PHYSICIAN: ADALID VELAZQUEZ MD REASON: altered mental status PROCEDURE: CT HEAD WO CONTRAST Indication: Dizziness, difficulty speaking. Fall TECHNIQUE: CT head without IV contrast COMPARISON: 07/08/2017 FINDINGS: No pathologic extra-axial or intra-axial fluid collection. The ventricles and basal cisterns are within normal limits. No acute intracranial bleed. No focal loss of walton-white differentiation. The visualized orbits are within normal limits. No calvarial lesions. Visualized paranasal sinuses and mastoid air cells are clear. IMPRESSION: No acute intracranial process on this noncontrast CT. If concern for acute ischemic stroke is high, please consider MRI brain. Electronically signed by: Jeff Nagel DO (10/14/2017 11:17 PM) [facility] DICTATED AND SIGNED BY: JEFF NAGEL DO DATE: 10/14/17 [id number] CC: ADALID VELAZQUEZ MD; DELORIS KOROMA ~ [] Course & Med Decision Making Course & Med Decision Making Pertinent Labs and Imaging studies reviewed. (See chart for details) Patient's lab work shows some increase in ammonia levels from 52 days ago to 123 today. The patient appears to be symptomatic from elevated ammonia levels. The patient will be admitted for further care. I spoke with Dr. Ruelas who except care patient in the hospital for further treatment. Dragon Disclaimer Dragon Disclaimer This electronic medical record was generated, in whole or in part, using a voice recognition dictation system. Departure Departure: Impression: Primary Impression: Hyperammonemia Additional Impression: Type 2 diabetes mellitus Disposition: ADMITTED INPATIENT Admitting Physician: Toya Ruelas Condition: STABLE Referrals: DELORIS KOROMA (PCP) Problem Qualifiers Additional Impression: Type 2 diabetes mellitus Diabetes mellitus senior care insulin use: unspecified terminal manager insulin use status Diabetes mellitus complication status: with hyperglycemia Qualified Codes: E11.65 - Type 2 diabetes mellitus with hyperglycemia ADALID VELAZQUEZ MD Oct 14, 2017 22:44
[2017-10-14 22:48] LABS: BASO % 0 % (0-3); EOS # 0.2 x10^3/uL (0.0-0.7); EOS % 3 % (0-3); HEMATOCRIT 43.1 % (36.0-47.0); HEMOGLOBIN 14.4 g/dL (12.0-15.5); LYMPH # 2.2 x10^3/uL (1.0-4.8); LYMPH % 40 % (24-48); MEAN CORPUSCULAR HEMOGLOBIN 31 pg (25-35); MEAN CORPUSCULAR HGB CONC 34 g/dL (31-37); MEAN CORPUSCULAR VOLUME 93 fL (79-100); MONO # 0.6 x10^3/uL (0.0-1.1); MONO % 10 % (0-9); NEUT # 2.6 x10^3uL (1.8-7.7); NEUT % 47 % (31-73); PLATELET COUNT 120 x10^3/uL (140-400); RED BLOOD COUNT 4.63 x10^6/uL (3.50-5.40); RED CELL DISTRIBUTION WIDTH 15.8 % (11.5-14.5); WHITE BLOOD COUNT 5.6 x10^3/uL (4.0-11.0)
--- NOTE | 2017-10-14 22:49 | EKG ---
[address] [address] Test Date: 2017-10-14 Test Time: 22:45:14 Pat Name: JW HOLLAND Department: Room: Gender: F [employer] Operator: PEDRO : 1955 Requested By: ADALID VELAZQUEZ Order Number: [id number] Reading MD: Measurements Intervals [place] Rate: 73 P: 47 VA: 170 QRS: 27 QRSD: 90 T: 28 QT: 400 QTc: 444 Interpretive Statements SINUS RHYTHM NORMAL ECG RI6.01 Compared to ECG 07/08/2017 13:33:12 Sinus tachycardia no longer present
--- NOTE | 2017-10-14 23:21 | RAD ---
Indication: Dizziness, difficulty speaking. Fall TECHNIQUE: CT head without IV contrast COMPARISON: 07/08/2017 FINDINGS: No pathologic extra-axial or intra-axial fluid collection. The ventricles and basal cisterns are within normal limits. No acute intracranial bleed. No focal loss of walton-white differentiation. The visualized orbits are within normal limits. No calvarial lesions. Visualized paranasal sinuses and mastoid air cells are clear. IMPRESSION: No acute intracranial process on this noncontrast CT. If concern for acute ischemic stroke is high, please consider MRI brain. Electronically signed by: Jeff Nagel DO (10/14/2017 11:17 PM) [facility]
[2017-10-15] MEDS ORDERED: ONDANSETRON ODT 4 MG TAB.RAPDIS PO ONE
[2017-10-15 00:55] LABS: BARBITURATES NEG (NEG); BENZODIAZEPINES NEG (NEG); CANNABINOIDS NEG (NEG); COCAINE NEG (NEG); METHADONE NEG (NEG); OPIATES NEG (NEG); PHENCYCLIDINE NEG (NEG)
[2017-10-15 00:57] LABS: CLARITY,URINE CLEAR; COLOR,URINE YELLOW
[2017-10-15 00:58] LABS: BACTERIA,URINE 0 /HPF (0-FEW); BILIRUBIN,URINE NEG (NEG); GLUCOSE,URINE >=1000 mg/dL (NEG); NITRITE,URINE NEG (NEG); RBC,URINE 0 /HPF (0-2); SQUAMOUS EPITHELIAL CELL,UR FEW /LPF; UROBILINOGEN,URINE 0.2 mg/dL (0.2 mg/dL)
[2017-10-15 01:03] LABS: AMPHETAMINE/METHAMPHETAMINE NEG (NEG)
[2017-10-15 02:09] LABS: ALBUMIN 2.7 g/dL (3.4-5.0); ALBUMIN/GLOBULIN RATIO 0.7 (1.0-1.7); ALK PHOS 152 U/L (46-116); ALT (SGPT) 43 U/L (14-59); ANION GAP 6 (6-14); AST (SGOT) 44 U/L (15-37); BLOOD UREA NITROGEN 24 mg/dL (7-20); BUN/CREATININE RATIO 27 (6-20); CALCIUM 8.7 mg/dL (8.5-10.1); CARBON DIOXIDE 28 mmol/L (21-32); CHLORIDE 106 mmol/L (98-107); CREATININE 0.9 mg/dL (0.6-1.0); GFR 63.7; GLUCOSE 317 mg/dL (70-99); MAGNESIUM 2.4 mg/dL (1.8-2.4); POTASSIUM 4.3 mmol/L (3.5-5.1); SODIUM 140 mmol/L (136-145); TOTAL BILIRUBIN 0.7 mg/dL (0.2-1.0); TOTAL PROTEIN 6.4 g/dL (6.4-8.2)
[2017-10-15] MEDS ORDERED: ONDANSETRON PF 4 MG/2 ML VIAL. IV PRN (03:00)
[2017-10-15] MEDS: IV NORMAL SALINE 1,000ML 1,000 ML IV SCH ×2 (03:09→09:42)
[2017-10-15 03:24] VITALS: BP 104/66
[2017-10-15] MEDS ORDERED: BUPR150T11 PO (04:07)
[2017-10-15] MEDS ORDERED: BIOT1CAP3 PO (04:07)
[2017-10-15] MEDS ORDERED: [UNRECOGNIZED DRUG - CODE] PO (04:08)
[2017-10-15] MEDS ORDERED: DOCU100C28 PO (04:09)
[2017-10-15] MEDS ORDERED: [UNRECOGNIZED DRUG - CODE] PO (04:09)
[2017-10-15] MEDS ORDERED: CYCL-331 PO (04:09)
[2017-10-15] MEDS ORDERED: GARL10002 PO (04:11)
[2017-10-15] MEDS ORDERED: FLUT9.9S NS (04:11)
[2017-10-15] MEDS ORDERED: INSU200I SQ (04:12)
[2017-10-15] MEDS ORDERED: INSU300I SQ (04:14)
[2017-10-15] MEDS ORDERED: DULA1.5P SQ (04:16)
[2017-10-15] MEDS ORDERED: RIFA550T4 PO (04:16)
[2017-10-15] MEDS ORDERED: CYAN10005 PO (04:19)
[2017-10-15] MEDS ORDERED: CETI10TA22 PO (04:20)
[2017-10-15] MEDS ORDERED: CHOL500016 PO (04:20)
[2017-10-15] MEDS ORDERED: LEVO150T5 PO (04:21)
[2017-10-15] MEDS ORDERED: LACT10SO PO (04:21)
[2017-10-15] MEDS ORDERED: LISI40TA PO (04:22)
[2017-10-15] MEDS ORDERED: MELO15TA23 PO (04:22)
[2017-10-15] MEDS ORDERED: MELA3TAB2 PO (04:22)
[2017-10-15] MEDS ORDERED: MULT-223 PO (04:23)
[2017-10-15] MEDS ORDERED: OMEP40CA5 PO (04:23)
[2017-10-15] MEDS ORDERED: POTA10TA10 PO (04:24)
[2017-10-15] MEDS ORDERED: PREG75CA PO (04:24)
[2017-10-15] MEDS ORDERED: DEXTROSE 50% 25 GM / 50ML DISP.SYRIN. IV PRN (04:30)
--- NOTE | 2017-10-15 04:35 | NUR ---
The patient, JW HOLLAND, 62 y/o, F admitted by TRICIA SWEET MD, was given written information regarding hospital policies, unit procedures and contact persons. Brother is at bedside. Call light within reach, bed alarm set for safety. Valuables were checked and left with patient.
[2017-10-15 06:18] VITALS: BP 137/76
[2017-10-15] MEDS: LACTULOSE 20 GM/30 ML SOLUTION. PO SCH ×2 (08:11→14:27)
[2017-10-15] MEDS: INSULIN LISPRO 300 UNITS/3 ML INSULN.PEN. SQ SCH ×4 (08:19→11:30)
--- NOTE | 2017-10-15 08:41 | NUR ---
Pt is alert to self, situation and time. Took a couple of attempts to get year correct but patient was able to. Pt states she has not been taking lactulose for last 3 days because her doctor from told her not to. Pt states no BM since 10/11. Lactulose given this morning. Pt is SR on tele. Will continue to monitor.
[2017-10-15] MEDS ORDERED: LISINOPRIL 20 MG TABLET PO SCH (09:00)
[2017-10-15] MEDS ORDERED: METOPROLOL SUCC 24HR ER 25 MG TAB.ER.24H. PO SCH (09:00)
[2017-10-15] MEDS ORDERED: INSULIN GLARGINE 300 UNITS/3 ML INSULN.PEN. SQ SCH (09:00)
[2017-10-15 11:06] VITALS: BP 106/65
[2017-10-15] MEDS ORDERED: TOUJEO SQ SCH (13:30)
[2017-10-15 14:35] VITALS: BP 120/73
--- NOTE | 2017-10-15 15:44 | NUR ---
Pt and patients brother both reported that the liver doctor at had told her to stop taking lactulose. They were both unsure why. Records from shows that it was ordered for patient to continue lactulose 3-4 times per day for 3-[address] Ruelas spoke with physician from who stated she did not tell the patient to quit taking lactulose. Dr Ruelas went into patients room along with this RN and informed them that the physician states she did not tell the patient to stop taking the lactulose at which point the brother got angry, body language stiffened, pointed finger at Dr Ruelas and yelled, "Your a liar!" You dont know what you're talking about, I was there you weren't. Were leaving! Your not letting this idiot take care of you!" Dr Ruelas left the room, RN explained to family and patient that DR Ruelas was only relaying what he was told by this physician. Pt decided to leave AMA stating she felt better, pt did apologize about her brothers behavior. Security called on brother. Brother left the building. RN suggested to patient that if she feels this way again that she go to where her liver specialist is, also suggested that she follow up with sooner rather than later. AMA paper signed by patient, IV out and tele off.
--- NOTE | 2017-10-22 12:37 | SSS ---
ADMIT DATE: 10/15/2017 The patient was admitted to the Emergency Room for evaluation of disorientation, generalized weakness. I have questioned the patient and her brother and apparently she was diagnosed with liver cirrhosis. The brother stated that the tone cabinet assembler advised her not to take any lactulose and once her ammonia level was found to be high. The nurse practitioner, Digna Self advised him to continue with the lactulose. I actually spoke with the rotary lithographic press operator who took care of her at [facility] and also we got all the records from [facility] and the tone cabinet assembler confirmed that she did a transjugular liver biopsy and that did confirm that she has liver cirrhosis due to have nonalcoholic steatohepatitis and that she advised them to continue with lactulose. In fact, the documentation that received her medical record of [facility] confirmed that and I was in the process of explaining to the brother that he might have heard it wrongly and because the tone cabinet assembler has recommended and she told me that and it was documented in her discharge, the brother all of a sudden became very angry and erratic and decided to take his sister against medical advice. TRICIA SWEET MD DR: MELANIA/eli JOB#: [id number] / [id number]
== END 2017-10-15 15:40 | disposition left against medical advice (07) | DRG 433 ==
LOC: ER 21:21 → 1 SOUTH 10-15 02:14
PROVIDERS: ADMIT Internal Medicine; ATTEND Internal Medicine
DX: K74.69 Other cirrhosis of liver (principal); E72.20 Disorder of urea cycle metabolism, unspecified; K75.81 Nonalcoholic steatohepatitis (NASH); E11.65 Type 2 diabetes mellitus with hyperglycemia; E03.9 Hypothyroidism, unspecified; E78.00 Pure hypercholesterolemia, unspecified; F32.9 Major depressive disorder, single episode, unspecified; I10 Essential (primary) hypertension; Z53.21 Procedure and treatment not carried out due to patient leaving prior to being seen by health care provider; Z90.49 Acquired absence of other specified parts of digestive tract; Z90.710 Acquired absence of both cervix and uterus; Z88.8 Allergy status to other drugs, medicaments and biological substances
CPT/HCPCS: 36415; 70450; 80048; 80053; 80076; 80307; 81001; 82140; 82553; 82947; 83735; 84484; 85025; 93005; J1815; 99285-25; G0479; J7030

== ENCOUNTER → 2018-02-22 | Outpatient (CLI) | payer BC ==
[~2018-02-22] MED LIST changes: +BIOT1CAP3 PO; +BUPIVACAINE MPF 0.25% 30 ML VIAL. ONE; +CETI10TA22 PO; +CYAN10005 PO; +CYCL-331 PO; +DOCU100C28 PO; +DULA1.5P SQ; +FLUT9.9S NS; +GARL10002 PO; +LACT10SO PO; +LEVO150T5 PO; +LISI40TA PO; +MELA3TAB2 PO; +MULT-223 PO; +OMEP40CA5 PO; +POTA10TA10 PO; +RIFA550T4 PO; +[UNRECOGNIZED DRUG - CODE] PO; +[UNRECOGNIZED DRUG - CODE] PO; +methylPREDNISolone ACETATE 40 MG/ML VIAL. ONE
== END | disposition home or self-care (01) ==
LOC: SURG 10:47
PROVIDERS: ATTEND Anesthesiology Pain Medicine
DX: M79.18 Myalgia, other site (principal); Z88.5 Allergy status to narcotic agent; Z88.1 Allergy status to other antibiotic agents; Z88.8 Allergy status to other drugs, medicaments and biological substances
CPT/HCPCS: 20553; J1030; J3490

== ENCOUNTER → 2018-03-08 | Outpatient (CLI) | payer BC ==
[~2018-03-08] MED LIST changes: -BUPIVACAINE MPF 0.25% 30 ML VIAL. ONE; +DEXAMETHASONE SOD PHOS 4 MG/ML VIAL ONE; +LIDOCAINE 1% PF 2 ML VIAL. ONE; -methylPREDNISolone ACETATE 40 MG/ML VIAL. ONE
== END | disposition home or self-care (01) ==
LOC: SURG 10:54
PROVIDERS: ATTEND Anesthesiology Pain Medicine
DX: M54.12 Radiculopathy, cervical region (principal); M19.90 Unspecified osteoarthritis, unspecified site; E11.9 Type 2 diabetes mellitus without complications; E07.9 Disorder of thyroid, unspecified; I10 Essential (primary) hypertension; G47.33 Obstructive sleep apnea (adult) (pediatric); M62.81 Muscle weakness (generalized); K25.9 Gastric ulcer, unspecified as acute or chronic, without hemorrhage or perforation; Z86.73 Personal history of transient ischemic attack (TIA), and cerebral infarction without residual deficits
CPT/HCPCS: 62321; J1100

== ENCOUNTER → 2018-04-17 | Outpatient (CLI) | payer BC, MEDICARE, OTHER ==
[~2018-04-17] MED LIST changes: +BUPIVACAINE MPF 0.5% 30 ML VIAL. ONE; -DEXAMETHASONE SOD PHOS 4 MG/ML VIAL ONE; +EMPA25TA PO; +HYDR-2759 PO; -LIDOCAINE 1% PF 2 ML VIAL. ONE; +LIDOCAINE 1% PF 30 ML VIAL. ONE; +LINA145C PO; +MAGN400C PO; +ONDA8TAB9 PO; +TOPI25TA52 PO
== END | disposition home or self-care (01) ==
LOC: SURG 12:34
PROVIDERS: ATTEND Anesthesiology Pain Medicine
DX: M47.812 Spondylosis without myelopathy or radiculopathy, cervical region (principal); M54.2 Cervicalgia; J32.9 Chronic sinusitis, unspecified; G47.00 Insomnia, unspecified; J30.2 Other seasonal allergic rhinitis; I10 Essential (primary) hypertension; R51 Headache; E11.9 Type 2 diabetes mellitus without complications; E07.9 Disorder of thyroid, unspecified; Z79.82 Long term (current) use of aspirin; Z79.84 Long term (current) use of oral hypoglycemic drugs; Z79.899 Other long term (current) drug therapy
CPT/HCPCS: 64490; 64491; J2001; J3490; 64484; 77002

== ENCOUNTER → 2018-05-02 | Outpatient (CLI) | payer BC, OTHER ==
[~2018-05-02] MED LIST changes: -BUPIVACAINE MPF 0.5% 30 ML VIAL. ONE; -EMPA25TA PO; -HYDR-2759 PO; -LIDOCAINE 1% PF 30 ML VIAL. ONE; -LINA145C PO; -MAGN400C PO; -ONDA8TAB9 PO; -TOPI25TA52 PO
== END | disposition home or self-care (01) ==
LOC: SURG 09:07
PROVIDERS: ATTEND Anesthesiology Pain Medicine
DX: M47.812 Spondylosis without myelopathy or radiculopathy, cervical region (principal); G89.4 Chronic pain syndrome; G43.909 Migraine, unspecified, not intractable, without status migrainosus; F11.90 Opioid use, unspecified, uncomplicated; I10 Essential (primary) hypertension; E11.9 Type 2 diabetes mellitus without complications; M19.90 Unspecified osteoarthritis, unspecified site; K21.9 Gastro-esophageal reflux disease without esophagitis
CPT/HCPCS: 99214

== ENCOUNTER 2018-05-16 15:29 | Inpatient (IN) | payer MEDICARE, OTHER ==
[~2018-05-16] VITALS: Ht 167.6 cm; Wt 100.8 kg
--- NOTE | 2018-05-16 16:04 | RAD ---
Single view chest 05/16/2017 CLINICAL INDICATION: Altered mental status. COMPARISON: Single view chest 07/08/2017 FINDINGS: Cardiac and mediastinal silhouettes are unremarkable. No pleural effusion, pneumothorax or focal consolidation. IMPRESSION: No acute cardiopulmonary abnormality. Electronically signed by: Geovanni Pino MD (05/16/2018 4:00 PM) [id number]
--- NOTE | 2018-05-16 16:05 | RAD ---
EXAM: Head CT without contrast. HISTORY: Altered mental status. TECHNIQUE: Computed tomographic images of the head were obtained without contrast. *One or more of the following individualized dose reduction techniques were utilized for this examination: 1. Automated exposure control. 2. Adjustment of the mA and/or kV according to patient size. 3. Use of iterative reconstruction technique. COMPARISON: 10/14/2017. FINDINGS: There is no acute or subacute extra-axial or intraparenchymal hemorrhage. There is no mass effect or midline shift. There is no hydrocephalus. There are areas of decreased attenuation within the cerebral white matter, nonspecific and likely related to chronic small vessel disease. There is cerebral volume loss with increased bifrontal extra-axial space. There is minimal mucosal thickening involving the right aspect of the sphenoid sinus. The orbits and mastoid air cells are unremarkable. No calvarial lesion is seen. IMPRESSION: No acute intracranial findings. Note is made that MRI is more sensitive for acute infarction. Electronically signed by: Precious Woodard MD (05/16/2018 4:01 PM) [id number]
[2018-05-16 16:49] LABS: BASO % 0 % (0-3); EOS # 0.1 x10^3/uL (0.0-0.7); EOS % 2 % (0-3); HEMATOCRIT 43.4 % (36.0-47.0); HEMOGLOBIN 13.9 g/dL (12.0-15.5); LYMPH # 1.5 x10^3/uL (1.0-4.8); LYMPH % 36 % (24-48); MEAN CORPUSCULAR HEMOGLOBIN 29 pg (25-35); MEAN CORPUSCULAR HGB CONC 32 g/dL (31-37); MEAN CORPUSCULAR VOLUME 91 fL (79-100); MONO # 0.6 x10^3/uL (0.0-1.1); MONO % 14 % (0-9); NEUT % 47 % (31-73); PLATELET COUNT 122 x10^3/uL (140-400); RED BLOOD COUNT 4.75 x10^6/uL (3.50-5.40); RED CELL DISTRIBUTION WIDTH 16.7 % (11.5-14.5); WHITE BLOOD COUNT 4.2 x10^3/uL (4.0-11.0)
[2018-05-16 17:02] LABS: CALCIUM 9.3 mg/dL (8.5-10.1); CREATININE 0.7 mg/dL (0.6-1.0); DIRECT BILIRUBIN 0.2 mg/dL (0.0-0.2); GFR 84.8; POTASSIUM 4.2 mmol/L (3.5-5.1); TOTAL BILIRUBIN 0.9 mg/dL (0.2-1.0)
[2018-05-16] MEDS ORDERED: LACTULOSE 20 GM/30 ML SOLUTION. PO ONE (17:30)
[2018-05-16 17:45] LABS: BILIRUBIN,URINE NEG (NEG); CLARITY,URINE CLEAR; COLOR,URINE YELLOW; GLUCOSE,URINE 500 mg/dL (NEG); NITRITE,URINE NEG (NEG); UROBILINOGEN,URINE 0.2 mg/dL (0.2 mg/dL)
[2018-05-16 17:46] LABS: BACTERIA,URINE FEW /HPF (0-FEW); SQUAMOUS EPITHELIAL CELL,UR OCC /LPF
--- NOTE | 2018-05-16 17:54 | PHYS DOC ---
Past History Past Medical History: Depression, Diabetes, High Cholesterol, Hypertension, Hypothyroid, Other Past Surgical History: Appendectomy, Cholecystectomy, , Hysterectomy, Tonsillectomy, Other Alcohol Use: None Drug Use: None Adult General Chief Complaint Chief Complaint: ALTERED MENTAL STATUS HPI HPI 63-year-old female presenting with worsening confusion over the past 24 hours. She has a history of cirrhosis and has a history of hepatic encephalopathy. They deny her having liver failure and deny having been examined for liver transplant. They report the patient having generalized weakness over the past few hours. Patient also has a history of diabetes but has normal blood sugar here. Review of systems is negative for chest pain shortness of breath neck stiffness , negative for abdominal pain or vomiting. ED course: 63-year-old female presenting with hepatic encephalopathy. Head CT negative. Ammonia is elevated. I spoke with Dr. Alcantara who accepts the patient for admission. We will initiate lactulose therapy here. Current Medications Current Medications Current Medications Medications (Trade) Dose Ordered Sig/Akbar Start Time Stop Time Status Last Admin Dose Admin Lactulose (Lactulose) 20 gm 1X ONCE 05/16/18 17:30 05/16/18 17:31 DC 05/16/18 17:24 20 GM Allergies Allergies Allergies Coded Allergies Type Severity Reaction Last Updated Verified cephalexin Allergy Intermediate 05/16/18 No codeine Allergy Intermediate 05/16/18 No dapagliflozin Allergy Intermediate 05/16/18 No iodine Allergy Intermediate HIVES, contrast OK when premedicated 05/16/18 Yes Physical Exam Physical Exam Constitutional: Well developed, well nourished, no acute distress, non-toxic appearance. HENT: Normocephalic, atraumatic, bilateral external ears normal, oropharynx moist, no oral exudates, nose normal. [] Eyes: PERRLA, EOMI, conjunctiva normal, no discharge. [] Neck: Normal range of motion, no tenderness, supple, no stridor. [] Cardiovascular:Heart rate regular rhythm, no murmur [] Lungs & Thorax: Bilateral breath sounds clear to auscultation [] Abdomen: Bowel sounds normal, soft, no tenderness, no masses, no pulsatile masses. Skin: Warm, dry, no erythema, no rash. [] Back: No tenderness, no CVA tenderness. [] Extremities: No tenderness, no cyanosis, no clubbing, ROM intact, no edema. [] Neurologic: Mental status: Awake, not oriented and alert x3. Patient opens eyes spontaneously and answers verbal questions sometimes correctly. Cranial nerves: Extraocular movements intact, eyebrows danisha bilaterally, smile symmetric, uvula elevation nl, shoulder shrug intact bilaterally, tongue protrusion normal DTRs: 2+ Sensation: equal and normal in all extremities Strength: 5/5 in upper and lower extremities bilaterally. Patient has asterixis bilaterally. Psychologic: Affect normal, judgement normal, mood normal. [] Current Patient Data Vital Signs Vital Signs Date Time Temp Pulse Resp B/P (MAP) Pulse Ox O2 Delivery O2 Flow Rate FiO2 05/16/18 17:18 69 16 114/56 (75) 100 Room Air 05/16/18 15:29 98.3 Lab Results Laboratory Tests Test 05/16/18 15:43 05/16/18 16:32 05/16/18 17:20 Glucose (Fingerstick) 181 mg/dL (70-99) H White Blood Count 4.2 x10^3/uL (4.0-11.0) Red Blood Count 4.75 x10^6/uL (3.50-5.40) Hemoglobin 13.9 g/dL (12.0-15.5) Hematocrit 43.4 % (36.0-47.0) Mean Corpuscular Volume 91 fL (79-100) Mean Corpuscular Hemoglobin 29 pg (25-35) Mean Corpuscular Hemoglobin Concent 32 g/dL (31-37) Red Cell Distribution Width 16.7 % (11.5-14.5) H Platelet Count 122 x10^3/uL (140-400) L Neutrophils (%) (Auto) 47 % (31-73) Lymphocytes (%) (Auto) 36 % (24-48) Monocytes (%) (Auto) 14 % (0-9) H Eosinophils (%) (Auto) 2 % (0-3) Basophils (%) (Auto) 0 % (0-3) Neutrophils # (Auto) 2.0 x10^3uL (1.8-7.7) Lymphocytes # (Auto) 1.5 x10^3/uL (1.0-4.8) Monocytes # (Auto) 0.6 x10^3/uL (0.0-1.1) Eosinophils # (Auto) 0.1 x10^3/uL (0.0-0.7) Basophils # (Auto) 0.0 x10^3/uL (0.0-0.2) Sodium Level 145 mmol/L (136-145) Potassium Level 4.2 mmol/L (3.5-5.1) Chloride Level 111 mmol/L (98-107) H Carbon Dioxide Level 23 mmol/L (21-32) Anion Gap 11 (6-14) Blood Urea Nitrogen 17 mg/dL (7-20) Creatinine 0.7 mg/dL (0.6-1.0) Estimated GFR (Cockcroft-Gault) 84.8 Glucose Level 218 mg/dL (70-99) H Calcium Level 9.3 mg/dL (8.5-10.1) Total Bilirubin 0.9 mg/dL (0.2-1.0) Direct Bilirubin 0.2 mg/dL (0.0-0.2) Aspartate Amino Transferase (AST) 38 U/L (15-37) H Alanine Aminotransferase (ALT) 38 U/L (14-59) Alkaline Phosphatase 108 U/L (46-116) Ammonia 116 mcmol/L (11-34) H Total Protein 7.0 g/dL (6.4-8.2) Albumin 3.0 g/dL (3.4-5.0) L Lipase 166 U/L (73-393) Urine Collection Type U cath Urine Color Yellow Urine Clarity Clear Urine pH 7.0 Urine Specific Counce 1.015 Urine Protein Neg (NEG-TRACE) Urine Glucose (UA) 500 mg/dL (NEG) Urine Ketones (Stick) Neg mg/dL (NEG) Urine Blood Neg (NEG) Urine Nitrite Neg (NEG) Urine Bilirubin Neg (NEG) Urine Urobilinogen Dipstick 0.2 mg/dL (0.2 mg/dL) Urine Leukocyte Esterase Neg (NEG) Urine RBC 3-5 /HPF (0-2) Urine WBC 5-10 /HPF (0-4) Urine Squamous Epithelial Cells Occ /LPF Urine Bacteria Few /HPF (0-FEW) EKG EKG [] Radiology/Procedures Radiology/Procedures [] Course & Med Decision Making Course & Med Decision Making Pertinent Labs and Imaging studies reviewed. (See chart for details) [] Dragon Disclaimer Dragon Disclaimer This electronic medical record was generated, in whole or in part, using a voice recognition dictation system. Departure Departure: Impression: Primary Impression: Altered mental status Additional Impression: Hepatic encephalopathy Disposition: 09 ADMITTED INPATIENT Admitting Physician: Toya Ruelas Condition: STABLE Referrals: DELORIS KOROMA (PCP) Problem Qualifiers MICHELLE DAWSON MD May 16, 2018 17:54
[2018-05-16 18:09] VITALS: BP 131/54
[2018-05-16] MEDS ORDERED: HYDR-2759 PO (18:35)
[2018-05-16] MEDS ORDERED: LINA145C PO (18:40)
[2018-05-16] MEDS ORDERED: DEXTROSE 50% 25 GM / 50ML DISP.SYRIN. IV PRN (19:30)
[2018-05-16] MEDS: INSULIN LISPRO 300 UNITS/3 ML INSULN.PEN. SQ SCH (20:07)
[2018-05-16] MEDS: LACTULOSE 20 GM/30 ML SOLUTION. PO SCH (20:37)
[2018-05-16] MEDS ORDERED: LACTULOSE 20 GM/30 ML SOLUTION. PO PRN (21:00)
[2018-05-16 23:19] VITALS: BP 126/73
[2018-05-17] MEDS: LACTULOSE 20 GM/30 ML SOLUTION. PO SCH ×7 (00:10→21:53)
[2018-05-17] MEDS: ONDANSETRON ODT 4 MG TAB.RAPDIS PO PRN ×2 (04:04→23:40)
[2018-05-17 04:44] VITALS: BP 138/74
[2018-05-17] MEDS: LEVOTHYROXINE 150 MCG TABLET PO SCH (05:24)
[2018-05-17 06:38] LABS: BASO % 1 % (0-3); EOS % 1 % (0-3); HEMATOCRIT 43.7 % (36.0-47.0); HEMOGLOBIN 14.4 g/dL (12.0-15.5); LYMPH # 1.3 x10^3/uL (1.0-4.8); LYMPH % 27 % (24-48); MEAN CORPUSCULAR HEMOGLOBIN 30 pg (25-35); MEAN CORPUSCULAR HGB CONC 33 g/dL (31-37); MEAN CORPUSCULAR VOLUME 90 fL (79-100); MONO # 0.6 x10^3/uL (0.0-1.1); MONO % 13 % (0-9); NEUT # 2.9 x10^3uL (1.8-7.7); NEUT % 60 % (31-73); PLATELET COUNT 128 x10^3/uL (140-400); RED BLOOD COUNT 4.85 x10^6/uL (3.50-5.40); RED CELL DISTRIBUTION WIDTH 16.3 % (11.5-14.5); WHITE BLOOD COUNT 4.8 x10^3/uL (4.0-11.0)
[2018-05-17 06:45] LABS: ALBUMIN 3.2 g/dL (3.4-5.0); ALBUMIN/GLOBULIN RATIO 0.8 (1.0-1.7); CALCIUM 9.6 mg/dL (8.5-10.1); CREATININE 0.8 mg/dL (0.6-1.0); GFR 72.7; POTASSIUM 3.8 mmol/L (3.5-5.1); TOTAL BILIRUBIN 1.4 mg/dL (0.2-1.0); TOTAL PROTEIN 7.3 g/dL (6.4-8.2)
[2018-05-17] MEDS: INSULIN LISPRO 300 UNITS/3 ML INSULN.PEN. SQ SCH ×5 (08:00→20:30)
[2018-05-17 10:30] VITALS: BP 132/64
[2018-05-17] MEDS ORDERED: EMPA25TA PO (10:39)
[2018-05-17] MEDS ORDERED: TOPI25TA52 PO (10:39)
[2018-05-17] MEDS ORDERED: ONDA8TAB9 PO (10:39)
[2018-05-17] MEDS ORDERED: MAGN400C PO (10:39)
--- NOTE | 2018-05-17 13:16 | HP ---
ADMIT DATE: 05/17/2018 HISTORY OF PRESENT ILLNESS: The patient is a 63-year-old female patient, who came to the Emergency Room, was actually brought to the Emergency Room with worsening confusion over the last 24 hours. She has a history of liver cirrhosis and history of hepatic encephalopathy. She was in fact admitted twice to [facility] and this is the second time that she came here. She is followed by the supervisor microwave at [facility], although she is not on the transplant list according to her. She did have a transjugular hepatic biopsy, which showed that she has according to her what seemed to be nonalcoholic steatohepatitis. She was extensively examined and investigated in the Emergency Room and her ammonia was found to be high at about 116 and therefore she was admitted and was started with aggressive regimen of lactulose. PAST MEDICAL HISTORY: Significant for liver cirrhosis secondary to nonalcoholic steatohepatitis. She is known to have diabetes, hyperlipidemia, and hyperthyroidism. Other medical problems include gastroesophageal reflux disease and apparently she has also history of esophageal stricture. She has multiple admissions and hepatic encephalopathy before. PAST SURGICAL HISTORY: Significant for liver biopsy, esophagogastroduodenoscopy, colonoscopy, esophageal stricture dilatation, cholecystectomy, appendectomy, total abdominal hysterectomy and bilateral salpingo-oophorectomy. She has also back surgery x 2. She is apparently scheduled for spinal epidural steroid injection and she is holding her aspirin and fatty acids. ALLERGIES: She is allergic to CEPHALEXIN, CODEINE, DAPAGLIFLOZIN, and IODINE. MEDICATIONS: She is currently on following medications: She is on cetirizine 10 mg once a day, rifaximin 550 mg twice a day, Flexeril 10 mg 3 times a day, metoprolol succinate 25 mg once a day, lisinopril 40 mg once a day, aspirin 81 mg once a day, meloxicam 15 mg once a day. She is on hydrocodone/APAP 5/325 one tablet 3 times a day as needed, Tylenol 650 mg every 8 hours as needed, pregabalin for Lyrica 75 mg once a day, topiramate 25 mg daily. She is on Wellbutrin 150 mg daily, lactulose 30 mL 3 times a day, magnesium oxide 1 capsule twice a day, ondansetron 8 mg 3 times a day. She is on omeprazole 40 mg once a day, linaclotide for Linzess 145 mcg once a day, Trulicity 1.5 mg subcutaneously weekly. She is on Toujeo SoloSTAR 50 units twice a day, and Humalog 35 mg 3 times a day before meals. She is on Jardiance 25 mg p.o. daily, levothyroxine sodium 150 mcg once a day, Biotin 1 mg capsules daily. She is on cyanocobalamin 1000 mcg tablet once a day. She is on cholecalciferol for vitamin D3 5000 international units once a day, multivitamin 1 tablet once a day, garlic 1000 mg capsule once a day, and melatonin 3 mg at bedtime. FAMILY HISTORY: She has 3 sisters, all younger. One of them because of alcoholic liver disease. The other two are known to have diabetes. Her father of cancer and mother is still alive in her 70s. SOCIAL HISTORY: She is , has 2 daughters. She quit smoking 15 years ago. She used to smoke up to 1 pack a day, does not drink alcohol or use recreational drugs. She worked in [employer] as well as other also in [employer]. REVIEW OF SYSTEMS: The patient denied any blurring of vision, cataract, glaucoma or macular degeneration. Denied any earache, tinnitus or sensorineural deafness. Denied any nosebleeds, stuffy nose or postnasal drip. Denied any sore throat, sore tongue, toothache, hoarseness of voice or difficulty swallowing. Denied any nausea, vomiting, diarrhea or constipation. Denied any hematemesis, melena or hematochezia. Denied any dysuria, frequency or hematuria. Denied any chest pain, shortness of breath, orthopnea, paroxysmal nocturnal dyspnea. Denied any cough, phlegm, or hemoptysis. PHYSICAL EXAMINATION: GENERAL: On arrival to the Emergency Room the patient was lethargic, but arousable. There was no pallor, jaundice, cyanosis, or thyromegaly. No jugular venous distension. No limb edema. VITAL SIGNS: Her heart rate was 67, blood pressure 114/56, temperature was 98.3, respiratory rate was 16 and oxygen saturation was 100% on room air. HEAD, EYES, EARS, NOSE, AND THROAT: Showed normocephalic, atraumatic. NECK: Supple. HEART: Showed normal first and second heart sounds. No gallop, rub or murmur. CHEST: Clear to auscultation. No crepitation or rhonchi. ABDOMEN: Distended, soft, nontender. No guarding or rigidity. No organomegaly. All hernial orifice intact. Bowel sounds normal. NEUROLOGIC: She was lethargic, but arousable. All her cranial nerves intact. EXTREMITIES: She moves extremities without difficulty. LABORATORY DATA: While in the Emergency Room, she has had lab work done, which showed that her serum sodium was 145, potassium 4.2, chloride 111, bicarbonate 23, anion gap of 11, BUN 17, creatinine 0.7, estimated GFR was 85 mL per minute. Her glucose 181, calcium was 9.3. Total bilirubin, AST, ALT, alkaline phosphatase were normal. Her ammonia was high at 116, total protein was 7, albumin 3 and lipase was 166. Her prothrombin time was 11.5, INR 1.2 and urinalysis showed the urine was yellow, clear with a pH of 7, specific gravity of 1.015. The urine was negative for protein. There was large amount of glucose, negative for ketones, blood, nitrite and leukocyte esterase. There was only 3-5 rbc's, 5-10 wbc's, very few bacteria. Her CT scan of the head showed there is no acute or subacute extraaxial and intraparenchymal hemorrhage. There is no mass effect or midline shift. There is no hydrocephalus. There are areas of decreased attenuation within the cerebral white matter, nonspecific and likely related to chronic small vessel disease. There is cerebral volume loss with increased bifrontal extraaxial space. There is minimal mucosal thickening involving the right aspect of the sphenoid sinus. The orbits and mastoid air cells are unremarkable. No calvarial lesion is seen. Her chest x-ray showed the cardiac and mediastinal silhouette are unremarkable. No pleural effusion, pneumothorax, or focal consolidation. ASSESSMENT AND PLAN: In summary, this is a 63-year-old female patient, who came in with hepatic encephalopathy. The cause of which is not really clear and could to be multifactorial. She is on multiple medications that could push her into hepatic encephalopathy including Flexeril. She is on Lyrica, hydrocodone. My plan is to hold all these medications. Continue with the lactulose. Continue with other medication and see how she does. TRICIA SWEET MD DR: MELANIA/eli JOB#: [id number] / [id number]
[2018-05-17] MEDS: ONDANSETRON ODT 4 MG TAB.RAPDIS PO SCH ×2 (14:00→20:26)
--- NOTE | 2018-05-17 14:23 | EKG ---
[address] [address] Test Date: 2018-05-16 Test Time: 16:49:48 Pat Name: JW HOLLAND Department: Room: Gender: F [employer]: : [id number] Requested By: MICHELLE DAWSON Order Number: [id number] Reading MD: Measurements Intervals Sullivan Rate: 67 P: 90 NJ: 166 QRS: 16 QRSD: 84 T: 23 QT: 404 QTc: 430 Interpretive Statements SINUS RHYTHM NO SPECIFIC ECG ABNORMALITIES RI6.01 Unconfirmed report No previous ECG available for comparison
[2018-05-17 14:25] VITALS: BP 145/72
[2018-05-17 19:50] VITALS: BP 143/81
[2018-05-17] MEDS: rifAXIMin 550 MG TABLET PO SCH (20:26)
[2018-05-17] MEDS: MAGNESIUM OXIDE 400 MG TABLET PO SCH (20:26)
[2018-05-17] MEDS: METOPROLOL SUCC 24HR ER 25 MG TAB.ER.24H. PO SCH (20:26)
[2018-05-17] MEDS: INSULIN GLARGINE HUM REC ANLOG 50 UNIT SQ SCH (20:29)
[2018-05-17] MEDS ORDERED: MELATONIN 3 MG TABLET PO SCH (21:00)
[2018-05-18] MEDS: LACTULOSE 20 GM/30 ML SOLUTION. PO SCH ×3 (03:33→11:32)
[2018-05-18 05:24] VITALS: BP 138/75
[2018-05-18] MEDS: LEVOTHYROXINE 150 MCG TABLET PO SCH (05:35)
[2018-05-18 06:15] LABS: BASO % 1 % (0-3); EOS # 0.1 x10^3/uL (0.0-0.7); EOS % 1 % (0-3); HEMATOCRIT 44.2 % (36.0-47.0); HEMOGLOBIN 14.7 g/dL (12.0-15.5); LYMPH # 1.8 x10^3/uL (1.0-4.8); LYMPH % 42 % (24-48); MEAN CORPUSCULAR HEMOGLOBIN 30 pg (25-35); MEAN CORPUSCULAR HGB CONC 33 g/dL (31-37); MEAN CORPUSCULAR VOLUME 89 fL (79-100); MONO # 0.6 x10^3/uL (0.0-1.1); MONO % 15 % (0-9); NEUT # 1.8 x10^3uL (1.8-7.7); NEUT % 42 % (31-73); PLATELET COUNT 104 x10^3/uL (140-400); RED BLOOD COUNT 4.96 x10^6/uL (3.50-5.40); RED CELL DISTRIBUTION WIDTH 16.5 % (11.5-14.5); WHITE BLOOD COUNT 4.3 x10^3/uL (4.0-11.0)
[2018-05-18 06:16] LABS: ALBUMIN 3.1 g/dL (3.4-5.0); ALBUMIN/GLOBULIN RATIO 0.8 (1.0-1.7); CALCIUM 9.5 mg/dL (8.5-10.1); CREATININE 0.7 mg/dL (0.6-1.0); GFR 84.8; TOTAL BILIRUBIN 1.3 mg/dL (0.2-1.0); TOTAL PROTEIN 7.2 g/dL (6.4-8.2)
[2018-05-18 06:17] LABS: POTASSIUM 3.8 mmol/L (3.5-5.1)
[2018-05-18] MEDS: INSULIN LISPRO 300 UNITS/3 ML INSULN.PEN. SQ SCH ×4 (07:30→11:33)
[2018-05-18] MEDS: MAGNESIUM OXIDE 400 MG TABLET PO SCH (08:54)
[2018-05-18] MEDS: ONDANSETRON ODT 4 MG TAB.RAPDIS PO SCH (08:54)
[2018-05-18] MEDS: METOPROLOL SUCC 24HR ER 25 MG TAB.ER.24H. PO SCH (08:54)
[2018-05-18] MEDS: rifAXIMin 550 MG TABLET PO SCH (08:55)
[2018-05-18] MEDS: INSULIN GLARGINE HUM REC ANLOG 50 UNIT SQ SCH (08:55)
[2018-05-18] MEDS ORDERED: TOPIRAMATE 25 MG TABLET. PO SCH (09:00)
[2018-05-18] MEDS ORDERED: buPROPion XL 150 MG TAB.ER.24H PO SCH (09:00)
[2018-05-18] MEDS ORDERED: CYANOCOBALAMIN (VITAMIN B-12) 1,000 MCG TABLET. PO SCH (09:00)
[2018-05-18] MEDS ORDERED: CHOLECALCIFEROL (VITAMIN D3) 1,000 UNIT TABLET PO SCH (09:00)
[2018-05-18] MEDS ORDERED: MULTIVITAMIN with MINERAL TABLET. PO SCH (09:00)
[2018-05-18] MEDS ORDERED: CETIRIZINE HCL 10 MG TABLET PO SCH (09:00)
[2018-05-18] MEDS ORDERED: LINACLOTIDE 145 MCG CAPSULE. PO SCH (09:00)
[2018-05-18] MEDS ORDERED: NON FORMULARY ITEM (Biotin 1 MG) PO SCH (09:00)
[2018-05-18] MEDS ORDERED: PANTOPRAZOLE 40 MG TABLET. PO SCH (09:00)
[2018-05-18] MEDS ORDERED: NON FORMULARY ITEM (Empagliflozin (Jardiance) 25 MG) PO SCH (09:00)
[2018-05-18 10:51] VITALS: BP 132/73
--- NOTE | 2018-05-18 12:40 | DS ---
DATE OF DISCHARGE: 05/18/2018 HOSPITAL COURSE: The patient is a 63-year-old female patient, who was admitted to the Emergency Room. She was actually brought to the Emergency Room with worsening confusion over the last 24 hours. She has history of liver cirrhosis secondary to nonalcoholic steatohepatitis, has had episodes of hepatic encephalopathy before. In fact, she was admitted twice to [facility] and wants to this hospital same presentation. She is followed by protection chief industrial plant at [facility], although she is not on the transplant list. According to her, she did have a transjugular hepatic biopsy, which showed that according to her what seemed to be nonalcoholic steatohepatitis that has progressed to liver cirrhosis. In the Emergency Room her ammonia was found to be high at 116 micromole per liter with the normal range an hour lab between 11-34 micromole per liter. She was treated aggressively with lactulose at 30 mL every 4 hours and she did very well. In fact, her ammonia came down to 15 micromole on 05/17/2018. PHYSICAL EXAMINATION: GENERAL: When I saw her today, she was definitely awake, alert, has been up and about, had eaten her breakfast and eager to go home. When I examined her, she was pale, but no jaundice, cyanosis or thyromegaly. No jugular venous distention. No limb edema. VITAL SIGNS: Her heart rate was 83, blood pressure was 132/73, temperature was 98, respiratory rate was 20, and her oxygen saturation was 95% on room air. HEAD, EYES, EARS, NOSE AND THROAT: Normocephalic, atraumatic. NECK: Supple. HEART: Showed normal first and second heart sounds. No gallop, rub, or murmur. CHEST: Clear to auscultation. No crepitation or rhonchi. ABDOMEN: Distended, soft, nontender. NEUROLOGIC: She is awake, alert, responding appropriately. All her cranial nerves intact. She moves extremities without difficulty. She ambulates without assistance or assistive devices. Her intake over the last 24 hours was 600, no output was recorded. LABORATORY DATA: As of this morning, her white cell count was 4300, hemoglobin 14.7, hematocrit 44, MCV 89 and platelet count of 104,000. Her serum sodium was 142, potassium 3.8, chloride 106, bicarbonate 24, anion gap of 12, BUN 18, creatinine 0.7, estimated GFR was 85 mL per minute. Her glucose 138, calcium was 9.5. Total bilirubin, AST, ALT, alkaline phosphatase normal. Ammonia is slightly up to 26. Total protein was 7.2, albumin was 3.1. Her prothrombin time was 11.5, INR of 1.2. Urinalysis was essentially unremarkable. DISCHARGE MEDICATIONS: The patient was discharged home to continue on all her current medications including Tylenol every 8 hours as needed, aspirin 81 mg once a day, biotin 1 mg capsule once a day, Wellbutrin 150 mg daily, cetirizine for Zyrtec 10 mg once a day, cholecalciferol vitamin D 5000 international units once a day, cyanocobalamin 1000 mcg tablet once a day, cyclobenzaprine 10 mg 3 times a day, Trulicity 1.5 mg and 0.5 mL subcu once a week, Jardiance 25 mg daily, garlic 1000 mg once a day, hydrocodone/APAP 5/325 one tablet 3 times a day as needed. She is on Lantus insulin 50 units subcutaneous twice a day and insulin lispro, Humalog insulin KwikPen 35 units 3 times a day, lactulose 30 mL p.o. t.i.d., levothyroxine sodium 150 mcg once a day, linaclotide for Linzess 145 mcg daily, lisinopril 40 mg once a day, magnesium oxide 400 mg twice a day, melatonin 10 mg at bedtime, meloxicam 15 mg daily, metoprolol succinate 125 mg once a day, multivitamin 1 tablet once a day, omeprazole 40 mg daily, ondansetron 8 mg 3 times a day, pregabalin for Lyrica 75 mg once a day, rifaximin 550 mg twice a day, topiramate for Topamax 25 mg daily. FINAL DISCHARGE DIAGNOSES: Hepatic encephalopathy, resolved; liver cirrhosis secondary to nonalcoholic steatohepatitis, hypertension, hyperlipidemia, hypothyroidism, type 2 diabetes, gastroesophageal reflux disease. The patient was advised to take her lactulose religiously and to achieve 1-2 bowel movements every day and should follow with her protection chief industrial plant and primary care physician. For her wax impacted cerumen in her left ear will describe Debrox 5% otic solution to give 5 drops to the left ear twice a day for 5 days. TRICIA SWEET MD DR: Herber JOB#: [id number] / [id number]
[2018-05-24] MEDS ORDERED: NON FORMULARY ITEM (Dulaglutide (Trulicity) 1.5 MG) SQ SCH (09:00)
== END 2018-05-18 12:55 | disposition home or self-care (01) | DRG 442 ==
LOC: ER 15:29 → 1 SOUTH 18:11
PROVIDERS: ADMIT Internal Medicine; ATTEND Internal Medicine
DX: K72.90 Hepatic failure, unspecified without coma (principal); E44.0 Moderate protein-calorie malnutrition; E03.9 Hypothyroidism, unspecified; E11.9 Type 2 diabetes mellitus without complications; E78.00 Pure hypercholesterolemia, unspecified; H61.22 Impacted cerumen, left ear; E78.5 Hyperlipidemia, unspecified; F17.210 Nicotine dependence, cigarettes, uncomplicated; K75.81 Nonalcoholic steatohepatitis (NASH); K21.9 Gastro-esophageal reflux disease without esophagitis; I10 Essential (primary) hypertension; K74.60 Unspecified cirrhosis of liver; Z80.9 Family history of malignant neoplasm, unspecified; Z83.3 Family history of diabetes mellitus; Z90.49 Acquired absence of other specified parts of digestive tract; Z90.710 Acquired absence of both cervix and uterus
CPT/HCPCS: 36415; 70450; 71045; 80048; 80053; 80076; 81001; 82140; 82947; 83690; 85025; 85610; 87086; 87186; 93005; J1815; Q0162; 99285-25

== ENCOUNTER → 2018-06-06 | Outpatient (CLI) | payer OTHER ==
[2018-05-18 10:51] VITALS: BP 132/73
[~2018-06-06] MED LIST changes: +EMPA25TA PO; +HYDR-2759 PO; +LINA145C PO; +MAGN400C PO; +ONDA8TAB9 PO; +TOPI25TA52 PO
== END | disposition home or self-care (01) ==
LOC: SURG 10:35
PROVIDERS: ATTEND Anesthesiology Pain Medicine
DX: G43.719 Chronic migraine without aura, intractable, without status migrainosus (principal); M47.812 Spondylosis without myelopathy or radiculopathy, cervical region; F11.90 Opioid use, unspecified, uncomplicated; I10 Essential (primary) hypertension; E11.9 Type 2 diabetes mellitus without complications; M19.90 Unspecified osteoarthritis, unspecified site; K21.9 Gastro-esophageal reflux disease without esophagitis; Z79.899 Other long term (current) drug therapy
CPT/HCPCS: 99214

== ENCOUNTER 2018-08-02 19:03 | Emergency (ER) | payer MEDICARE, OTHER ==
[~2018-08-02] VITALS: Ht 162.6 cm; Wt 102.5 kg
[~2018-08-02 19:03] MED LIST changes: -MULT-223 PO; +MULT-629 PO
--- NOTE | 2018-08-02 19:49 | ED.ADGEN ---
Past History Past Medical History: Depression, Diabetes, High Cholesterol, Hypertension, Hypothyroid, Other Past Surgical History: Appendectomy, Cholecystectomy, , Hysterectomy, Tonsillectomy, Other Alcohol Use: None Drug Use: None Adult General Chief Complaint Chief Complaint confusion HPI HPI 63 years old female with history of cirrhosis of the liver presented to the emergency department with chief complaint : Confusion noticed by the she is unable to recognize the month or the day she is able to return as place the family members has been cold to [facility] they advised him to come to the emergency department to check ammonia level she denies any other symptoms Review of Systems Review of Systems Limited due to patient's mental status however she denies any pain no shortness breath no chest pain no abdominal pain no nausea no vomiting no diarrhea no urgency no frequency or hematuria Allergies Allergies Allergies Coded Allergies Type Severity Reaction Last Updated Verified cephalexin Allergy Intermediate 08/02/18 No codeine Allergy Intermediate 08/02/18 No dapagliflozin Allergy Intermediate 08/02/18 No iodine Allergy Intermediate HIVES, contrast OK when premedicated 08/02/18 Yes Physical Exam Physical Exam Constitutional: Well developed, well nourished, no acute distress, non-toxic appearance. [] HENT: Normocephalic, atraumatic, bilateral external ears normal, oropharynx moist, no oral exudates, nose normal. [] Eyes: PERRLA, EOMI, conjunctiva normal, no discharge. [] Neck: Normal range of motion, no tenderness, supple, no stridor. [] Cardiovascular:Heart rate regular rhythm, no murmur [] Lungs & Thorax: Bilateral breath sounds clear to auscultation [] Abdomen: Bowel sounds normal, soft, no tenderness, no masses, no pulsatile masses. [] Skin: Warm, dry, no erythema, no rash. [] Back: No tenderness, no CVA tenderness. [] Extremities: No tenderness, no cyanosis, no clubbing, ROM intact, no edema. [] Patient is oriented to the place not to the time she is also oriented to the people Current Patient Data Vital Signs Vital Signs Date Time Temp Pulse Resp B/P (MAP) Pulse Ox O2 Delivery O2 Flow Rate FiO2 08/02/18 19:15 98.1 82 22 98 Room Air 08/02/18 19:10 152/64 (93) Lab Results Laboratory Tests Test 08/02/18 19:35 08/02/18 20:19 White Blood Count 4.5 x10^3/uL (4.0-11.0) Red Blood Count 4.72 x10^6/uL (3.50-5.40) Hemoglobin 14.4 g/dL (12.0-15.5) Hematocrit 43.8 % (36.0-47.0) Mean Corpuscular Volume 93 fL (79-100) Mean Corpuscular Hemoglobin 30 pg (25-35) Mean Corpuscular Hemoglobin Concent 33 g/dL (31-37) Red Cell Distribution Width 17.5 % (11.5-14.5) H Platelet Count 119 x10^3/uL (140-400) L Prothrombin Time 11.0 SEC (9.4-11.4) Prothrombin Time INR 1.1 (0.9-1.1) Sodium Level 145 mmol/L (136-145) Potassium Level 3.9 mmol/L (3.5-5.1) Chloride Level 109 mmol/L (98-107) H Carbon Dioxide Level 26 mmol/L (21-32) Anion Gap 10 (6-14) Blood Urea Nitrogen 11 mg/dL (7-20) Creatinine 0.7 mg/dL (0.6-1.0) Estimated GFR (Cockcroft-Gault) 84.8 BUN/Creatinine Ratio 16 (6-20) Glucose Level 163 mg/dL (70-99) H Calcium Level 9.6 mg/dL (8.5-10.1) Total Bilirubin 0.8 mg/dL (0.2-1.0) Aspartate Amino Transferase (AST) 39 U/L (15-37) H Alanine Aminotransferase (ALT) 34 U/L (14-59) Alkaline Phosphatase 117 U/L (46-116) H Total Protein 6.5 g/dL (6.4-8.2) Albumin 3.1 g/dL (3.4-5.0) L Albumin/Globulin Ratio 0.9 (1.0-1.7) L Ammonia 161 mcmol/L (11-34) H EKG EKG [] Radiology/Procedures Radiology/Procedures [] Course & Med Decision Making Course & Med Decision Making Pertinent Labs and Imaging studies reviewed. (See chart for details) Case discussed with her who stated that he would like to take his home and he will increase her lactulose dosing at home I advised him to change it to 4 times a day and recheck ammonia level in 48 hours [] Final Impression Final Impression [] Problems: (1) Altered mental status Qualifiers: Qualified Codes: R41.82 - Altered mental status, unspecified (2) Elevated ALT measurement Dragon Disclaimer Dragon Disclaimer This electronic medical record was generated, in whole or in part, using a voice recognition dictation system. NICHELLE CARTER MD Aug 02, 2018 19:49
[2018-08-02 19:59] LABS: HEMATOCRIT 43.8 % (36.0-47.0); HEMOGLOBIN 14.4 g/dL (12.0-15.5); RED BLOOD COUNT 4.72 x10^6/uL (3.50-5.40); RED CELL DISTRIBUTION WIDTH 17.5 % (11.5-14.5); WHITE BLOOD COUNT 4.5 x10^3/uL (4.0-11.0)
[2018-08-02 20:12] LABS: ALBUMIN 3.1 g/dL (3.4-5.0); ALBUMIN/GLOBULIN RATIO 0.9 (1.0-1.7); CALCIUM 9.6 mg/dL (8.5-10.1); CREATININE 0.7 mg/dL (0.6-1.0); GFR 84.8; POTASSIUM 3.9 mmol/L (3.5-5.1); TOTAL BILIRUBIN 0.8 mg/dL (0.2-1.0); TOTAL PROTEIN 6.5 g/dL (6.4-8.2)
[2018-08-02] MEDS ORDERED: LACT10SO PO (21:07)
[2018-08-02 22:00] VITALS: BP 153/52
[2018-08-02 22:00] LABS: BACTERIA,URINE 0 /HPF (0-FEW); BILIRUBIN,URINE NEG (NEG); CLARITY,URINE HAZY; COLOR,URINE YELLOW; GLUCOSE,URINE NEG (NEG); NITRITE,URINE NEG (NEG); RBC,URINE 0 /HPF (0-2); SQUAMOUS EPITHELIAL CELL,UR OCC /LPF; UROBILINOGEN,URINE 0.2 mg/dL (0.2 mg/dL)
[2018-08-02] MEDS ORDERED: SULF1TAB24 PO (22:09)
[2018-08-02] MEDS ORDERED: SMZ/TMP 800/160MG TABLET. PO ONE ×2 (22:10→22:15)
== END 2018-08-02 22:10 | disposition home or self-care (01) ==
LOC: ER 19:03
DX: R41.82 Altered mental status, unspecified (principal); R74.0 Nonspecific elevation of levels of transaminase and lactic acid dehydrogenase [LDH]; F32.9 Major depressive disorder, single episode, unspecified; E11.9 Type 2 diabetes mellitus without complications; E78.00 Pure hypercholesterolemia, unspecified; I10 Essential (primary) hypertension; E03.9 Hypothyroidism, unspecified; Z88.1 Allergy status to other antibiotic agents; Z88.5 Allergy status to narcotic agent; Z88.8 Allergy status to other drugs, medicaments and biological substances
CPT/HCPCS: 36415; 80053; 81001; 82140; 85027; 85610; 87086; 87186; 99284

== ENCOUNTER 2018-08-04 18:36 | Inpatient (IN) | payer MEDICARE, OTHER ==
[~2018-08-04] VITALS: Ht 162.6 cm; Wt 103.4 kg
[~2018-08-04 18:36] MED LIST changes: +SULF1TAB24 PO
[2018-08-04] MEDS ORDERED: IV NORMAL SALINE 1,000ML 1,000 ML IV ONE ×2 (19:00→20:45)
[2018-08-04] MEDS ORDERED: ONDANSETRON PF 4 MG/2 ML VIAL. IV ONE (19:30)
[2018-08-04] MEDS ORDERED: FAMOTIDINE 20 MG/2 ML VIAL IVP ONE (19:30)
--- NOTE | 2018-08-04 19:40 | RAD ---
Chest radiograph 08/04/2018 7:02 PM INDICATION: Confusion, mental status changes COMPARISON: May 16, 2018 TECHNIQUE: Portable upright frontal view of the chest is provided. FINDINGS: The cardiomediastinal silhouette is within normal limits. There are no pleural effusions. There is no pulmonary vascular congestion. There is no pneumothorax. The lungs are clear. No significant osseous abnormality is identified. Surgical clips are identified in the left upper quadrant abdomen. IMPRESSION: No acute cardiopulmonary process. Electronically signed by: Alexa Luciano MD (08/04/2018 7:37 PM) [facility]
[2018-08-04 19:58] LABS: BASO % 0 % (0-3); EOS % 1 % (0-3); HEMATOCRIT 50.2 % (36.0-47.0); HEMOGLOBIN 16.6 g/dL (12.0-15.5); LYMPH # 1.1 x10^3/uL (1.0-4.8); LYMPH % 16 % (24-48); MEAN CORPUSCULAR HEMOGLOBIN 31 pg (25-35); MEAN CORPUSCULAR HGB CONC 33 g/dL (31-37); MEAN CORPUSCULAR VOLUME 92 fL (79-100); MONO # 0.5 x10^3/uL (0.0-1.1); MONO % 8 % (0-9); NEUT # 5.3 x10^3uL (1.8-7.7); NEUT % 76 % (31-73); PLATELET COUNT 159 x10^3/uL (140-400); RED BLOOD COUNT 5.44 x10^6/uL (3.50-5.40); RED CELL DISTRIBUTION WIDTH 17.8 % (11.5-14.5); WHITE BLOOD COUNT 6.9 x10^3/uL (4.0-11.0)
[2018-08-04] MEDS ORDERED: ONDANSETRON PF 4 MG/2 ML VIAL. IV PRN (20:00)
[2018-08-04] MEDS ORDERED: LACTULOSE 20 GM/30 ML SOLUTION. PO ONE (20:00)
[2018-08-04] MEDS ORDERED: DEXTROSE 50% 25 GM / 50ML DISP.SYRIN. IV PRN (20:00)
--- NOTE | 2018-08-04 20:23 | RAD ---
CT Head W/O Contrast: History: FALL, CONFUSION Comparison: none Axial images were obtained without contrast. The walton and white matter appears normal and symmetrical for the patients age. There is no mass effect, extraaxial fluid collections or hydrocephalus. There is no gross bleed. There is no focal loss of walton-white matter distinction to suggest acute ischemia, i.e. stroke. Impression: No acute findings. End impression CT C-Spine without contrast: Clinical History: FALL, CONFUSION Technique: Axial helical images of the cervical spine were obtained without contrast, axial coronal and sagittal reconstruction was performed. Findings: There is no loss of vertebral body stature. There is no prevertebral soft tissue swelling. The vertebral bodies are well aligned. There is straightening of the normal cervical lordosis which can be positional or could be chronic. The C1-C2 relationship is normal. The visualized osseous structures appear normal. Evaluation of the central canal is limited without contrast. There is multiple posterior disc bulges resulting in flattening of the thecal sac. There does not appear to be gross flattening of the cervical cord. There is moderate narrowing of multiple neuroforamen. Impression: No acute findings. Clinical correlation suggested. PQRS Compliance Statement: One or more of the following individualized dose reduction techniques were utilized for this examination: 1. Automated exposure control 2. Adjustment of the mA and/or kV according to patient size 3. Use of iterative reconstruction technique Electronically signed by: Anmol Campos III, MD (08/04/2018 8:20 PM) [id number]
--- NOTE | 2018-08-04 20:25 | RAD ---
PQRS Compliance Statement: One or more of the following individualized dose reduction techniques were utilized for this examination: 1. Automated exposure control 2. Adjustment of the mA and/or kV according to patient size 3. Use of iterative reconstruction technique CT abdomen/pelvis without contrast 08/04/2018 7:57 PM INDICATION: Diffuse abdominal pain, nausea and weakness. Constipation. COMPARISON: CT abdomen/pelvis August 18, 2015 TECHNIQUE: Multiple axial CT images of the abdomen and pelvis were obtained without intravenous contrast. Coronal and sagittal reformats are provided. FINDINGS: Lung bases are clear. Heart size is within normal limits. Three-vessel coronary artery vascular calcifications are identified. Evaluation of the solid abdominal viscera is limited by lack of intravenous contrast. There is a 5 mm hypodense lesion in the right hepatic lobe which is too small to characterize, however statistically favor to represent a simple cyst or hemangioma. Spleen is not enlarged. Adrenal glands are normal in appearance. Pancreas is normal in appearance. Gallbladder surgically absent. Abdominal aorta is normal in course and caliber with dense calcified atheromatous plaque. There are no pathologically enlarged lymph nodes in abdomen and pelvis. There is no free fluid or free intraperitoneal air. Kidneys are symmetric in appearance. No calculi are identified within the kidneys, ureters or urinary bladder. No hydronephrosis. No contour deforming renal mass. Mildly distended fluid-filled bowel loops are identified within the central abdomen measuring up to 2.1 cm. No dilated loops of identified. Postoperative changes are identified from gastric bypass surgery. No adjacent inflammatory changes are identified. Appendix is not visualized. Small amount of fluid is identified throughout the colon. Urinary bladder is within normal limits given degree of distention. No suspicious pelvic abnormality is identified. No suspicious osseous amount is identified. Moderate degenerative disc disease of the lumbar spine is present. IMPRESSION: 1. There are fluid-filled mildly distended small bowel loops which may be seen with enteritis. 2. Postoperative changes are identified from gastric bypass surgery without adjacent inflammation. 3. 5 mm hypodensity within the right hepatic lobe is statistically favored represent a simple cyst or hemangioma. Electronically signed by: Alexa Luciano MD (08/04/2018 8:22 PM) [facility]
[2018-08-04 20:27] LABS: ALBUMIN 3.6 g/dL (3.4-5.0); ALBUMIN/GLOBULIN RATIO 0.8 (1.0-1.7); CALCIUM 10.9 mg/dL (8.5-10.1); CREATININE 1.3 mg/dL (0.6-1.0); GFR 41.5; MAGNESIUM 2.4 mg/dL (1.8-2.4); POTASSIUM 4.7 mmol/L (3.5-5.1); TOTAL BILIRUBIN 1.3 mg/dL (0.2-1.0); TOTAL PROTEIN 8.1 g/dL (6.4-8.2)
--- NOTE | 2018-08-04 21:19 | PHYS DOC ---
Past History Past Medical History: Depression, Diabetes, High Cholesterol, Hypertension, Hypothyroid, Liver Disease, Other Past Medical History Limited due to altered mental status Past Surgical History: Appendectomy, Cholecystectomy, , Hysterectomy, Tonsillectomy, Other Past Surgical History Limited due to altered mental status Alcohol Use: None Drug Use: None Social History Limited due to altered mental status Adult General Chief Complaint Chief Complaint: ABDOMINAL PAIN HPI HPI 63 y/o female presents with pmh of cirrhosis due to BENÍTEZ presents with 4-5 day history of lower abdominal pain and increased confusion with known elevated ammonia level. Patient reports has been getting worse over the last 4-5 days. Patient was seen in ED at [place] on Sunday and per [facility] review was noted to have ammonia level of 161. Patient had elected at that time to go home and increase her dosing of lactulose. Denies fever/chills. Reports fall at home x 2. Denies head trauma or neck pain. Denies LOC. Reports some neck pain. Reports some associated nausea. Reports has been having diarrhea due to lactulose. Patient reports symptoms had become worse today and called her sheet metal assembler at who instructed patient to present to the ED for further evaluation. HPI limited due to patient's increased confusion. Review of Systems Review of Systems Constitutional: Denies fever or chills [] Respiratory: Denies cough or shortness of breath [] Cardiovascular: Denies chest pain GI: Reports abdominal pain, nausea, and diarrhea [] : Denies dysuria or hematuria [] Musculoskeletal: Denies back pain or joint pain [] Integument: Denies rash or skin lesions [] Neurologic: Denies headache; reports generalized weakness ROS limited due to patient's increased confusion. Current Medications Current Medications Current Medications Medications (Trade) Dose Ordered Sig/Akbar Start Time Stop Time Status Last Admin Dose Admin Dextrose 12.5 gm PRN Q15MIN PRN 08/04/18 20:00 Famotidine (Pepcid Vial) 20 mg 1X ONCE 08/04/18 19:30 08/04/18 19:31 DC 08/04/18 20:23 20 MG Lactulose (Lactulose) 45 gm 1X ONCE 08/04/18 20:00 08/04/18 20:54 DC Ondansetron HCl (Zofran) 4 mg PRN Q4HRS PRN 08/04/18 20:00 08/05/18 19:59 Sodium Chloride 1,000 ml @ 100 mls/hr Q10H 08/04/18 19:56 08/05/18 19:55 Allergies Allergies Allergies Coded Allergies Type Severity Reaction Last Updated Verified cephalexin Allergy Intermediate 08/02/18 No codeine Allergy Intermediate 08/02/18 No dapagliflozin Allergy Intermediate 08/02/18 No iodine Allergy Intermediate HIVES, contrast OK when premedicated 08/02/18 Yes Physical Exam Physical Exam Constitutional: Well developed, appears dehydrated, no acute distress, non- toxic appearance. [] HENT: Normocephalic, atraumatic, oropharynx dry Eyes: PERRL, EOMI, conjunctiva normal, no discharge. [] Neck: Normal range of motion, no tenderness, supple, no meningeal signs Cardiovascular: Heart rate regular rhythm, no murmur [] Lungs & Thorax: Bilateral breath sounds clear to auscultation [] Abdomen: Soft, lower abdominal tenderness Skin: Warm, dry, no erythema, no rash. [] Extremities: No tenderness, no cyanosis, no clubbing, ROM intact, no edema. [] Neurologic: Alert and oriented X 2 (name and place), confused to date, normal motor function, normal sensory function, no focal deficits noted. [] Psychologic: Affect normal Current Patient Data Vital Signs Vital Signs Date Time Temp Pulse Resp B/P (MAP) Pulse Ox O2 Delivery O2 Flow Rate FiO2 08/04/18 21:02 16 100 Room Air 08/04/18 18:42 98.4 72 Lab Results Laboratory Tests Test 08/04/18 18:50 08/04/18 19:30 Glucose (Fingerstick) 246 mg/dL (70-99) H White Blood Count 6.9 x10^3/uL (4.0-11.0) # Red Blood Count 5.44 x10^6/uL (3.50-5.40) H Hemoglobin 16.6 g/dL (12.0-15.5) H Hematocrit 50.2 % (36.0-47.0) H Mean Corpuscular Volume 92 fL (79-100) Mean Corpuscular Hemoglobin 31 pg (25-35) Mean Corpuscular Hemoglobin Concent 33 g/dL (31-37) Red Cell Distribution Width 17.8 % (11.5-14.5) H Platelet Count 159 x10^3/uL (140-400) Neutrophils (%) (Auto) 76 % (31-73) H Lymphocytes (%) (Auto) 16 % (24-48) L Monocytes (%) (Auto) 8 % (0-9) Eosinophils (%) (Auto) 1 % (0-3) Basophils (%) (Auto) 0 % (0-3) Neutrophils # (Auto) 5.3 x10^3uL (1.8-7.7) Lymphocytes # (Auto) 1.1 x10^3/uL (1.0-4.8) Monocytes # (Auto) 0.5 x10^3/uL (0.0-1.1) Eosinophils # (Auto) 0.0 x10^3/uL (0.0-0.7) Basophils # (Auto) 0.0 x10^3/uL (0.0-0.2) Prothrombin Time 11.5 SEC (9.4-11.4) H Prothrombin Time INR 1.2 (0.9-1.1) H PTT 23 SEC (23-33) Sodium Level 141 mmol/L (136-145) Potassium Level 4.7 mmol/L (3.5-5.1) Chloride Level 105 mmol/L (98-107) Carbon Dioxide Level 25 mmol/L (21-32) Anion Gap 11 (6-14) Blood Urea Nitrogen 19 mg/dL (7-20) Creatinine 1.3 mg/dL (0.6-1.0) H Estimated GFR (Cockcroft-Gault) 41.5 BUN/Creatinine Ratio 15 (6-20) Glucose Level 223 mg/dL (70-99) H Lactic Acid Level 2.6 mmol/L (0.4-2.0) H Calcium Level 10.9 mg/dL (8.5-10.1) H Magnesium Level 2.4 mg/dL (1.8-2.4) Total Bilirubin 1.3 mg/dL (0.2-1.0) H Aspartate Amino Transferase (AST) 54 U/L (15-37) H Alanine Aminotransferase (ALT) 41 U/L (14-59) Alkaline Phosphatase 124 U/L (46-116) H Ammonia 96 mcmol/L (11-34) H Creatine Kinase 61 U/L (26-192) Creatine Kinase MB (Mass) 1.0 ng/mL (0.0-3.6) Creatine Kinase MB Relative Index 1.6 % (0-4) Troponin I Quantitative < 0.017 ng/mL (0-0.055) Total Protein 8.1 g/dL (6.4-8.2) Albumin 3.6 g/dL (3.4-5.0) Albumin/Globulin Ratio 0.8 (1.0-1.7) L Lipase 156 U/L (73-393) EKG EKG @1846 NSR at 73bpm, NO ST elevation, Q wave in III Radiology/Procedures Radiology/Procedures PROCEDURE: PORTABLE CHEST 1V Chest radiograph 08/04/2018 7:02 PM INDICATION: Confusion, mental status changes COMPARISON: May 16, 2018 TECHNIQUE: Portable upright frontal view of the chest is provided. FINDINGS: The cardiomediastinal silhouette is within normal limits. There are no pleural effusions. There is no pulmonary vascular congestion. There is no pneumothorax. The lungs are clear. No significant osseous abnormality is identified. Surgical clips are identified in the left upper quadrant abdomen. IMPRESSION: No acute cardiopulmonary process. Electronically signed by: lAexa Luciano MD (08/04/2018 7:37 PM) [facility] PROCEDURE: CT HEAD AND CERVICAL SPINE WO CT Head W/O Contrast: History: FALL, CONFUSION Comparison: none Axial images were obtained without contrast. The walton and white matter appears normal and symmetrical for the patients age. There is no mass effect, extraaxial fluid collections or hydrocephalus. There is no gross bleed. There is no focal loss of walton-white matter distinction to suggest acute ischemia, i.e. stroke. Impression: No acute findings. End impression CT C-Spine without contrast: Clinical History: FALL, CONFUSION Technique: Axial helical images of the cervical spine were obtained without contrast, axial coronal and sagittal reconstruction was performed. Findings: There is no loss of vertebral body stature. There is no prevertebral soft tissue swelling. The vertebral bodies are well aligned. There is straightening of the normal cervical lordosis which can be positional or could be chronic. The C1-C2 relationship is normal. The visualized osseous structures appear normal. Evaluation of the central canal is limited without contrast. There is multiple posterior disc bulges resulting in flattening of the thecal sac. There does not appear to be gross flattening of the cervical cord. There is moderate narrowing of multiple neuroforamen. Impression: No acute findings. Clinical correlation suggested. PQRS Compliance Statement: One or more of the following individualized dose reduction techniques were utilized for this examination: 1. Automated exposure control 2. Adjustment of the mA and/or kV according to patient size 3. Use of iterative reconstruction technique Electronically signed by: Anmol Campos III, MD (08/04/2018 8:20 PM) [facility] PROCEDURE: CT ABDOMEN PELVIS WO CONTRAST PQRS Compliance Statement: One or more of the following individualized dose reduction techniques were utilized for this examination: 1. Automated exposure control 2. Adjustment of the mA and/or kV according to patient size 3. Use of iterative reconstruction technique CT abdomen/pelvis without contrast 08/04/2018 7:57 PM INDICATION: Diffuse abdominal pain, nausea and weakness. Constipation. COMPARISON: CT abdomen/pelvis August 18, 2015 TECHNIQUE: Multiple axial CT images of the abdomen and pelvis were obtained without intravenous contrast. Coronal and sagittal reformats are provided. FINDINGS: Lung bases are clear. Heart size is within normal limits. Three-vessel coronary artery vascular calcifications are identified. Evaluation of the solid abdominal viscera is limited by lack of intravenous contrast. There is a 5 mm hypodense lesion in the right hepatic lobe which is too small to characterize, however statistically favor to represent a simple cyst or hemangioma. Spleen is not enlarged. Adrenal glands are normal in appearance. Pancreas is normal in appearance. Gallbladder surgically absent. Abdominal aorta is normal in course and caliber with dense calcified atheromatous plaque. There are no pathologically enlarged lymph nodes in abdomen and pelvis. There is no free fluid or free intraperitoneal air. Kidneys are symmetric in appearance. No calculi are identified within the kidneys, ureters or urinary bladder. No hydronephrosis. No contour deforming renal mass. Mildly distended fluid-filled bowel loops are identified within the central abdomen measuring up to 2.1 cm. No dilated loops of identified. Postoperative changes are identified from gastric bypass surgery. No adjacent inflammatory changes are identified. Appendix is not visualized. Small amount of fluid is identified throughout the colon. Urinary bladder is within normal limits given degree of distention. No suspicious pelvic abnormality is identified. No suspicious osseous amount is identified. Moderate degenerative disc disease of the lumbar spine is present. IMPRESSION: 1. There are fluid-filled mildly distended small bowel loops which may be seen with enteritis. 2. Postoperative changes are identified from gastric bypass surgery without adjacent inflammation. 3. 5 mm hypodensity within the right hepatic lobe is statistically favored represent a simple cyst or hemangioma. Electronically signed by: Alexa Luciano MD (08/04/2018 8:22 PM) [facility] Course & Med Decision Making Course & Med Decision Making Pertinent Labs and Imaging studies reviewed. (See chart for details) Patient with pmh of liver cirrhosis presents with history of increased confusion and generalized weakness. Hx of recent ED visit with ammonia level noted to be 161 on Sunday. Reports has been increasing lactulose since but due to worsening symptoms, was instructed to present to ED for further evaluation. Patient confused to date. Reports has fallen x 2 today. Reports some neck pain. Patient otherwise neurologically intact. EKG stable. Labs obtained and posted to chart. Ammonia improved to 91. Lactic acid elevated. No SIRS criteria noted. IVF hydration given x [address] head/cervical spine without acute process. CT abd/pelvis with signs of possible enteritis. Discussed report the radiologist who reports no sign of obstruction. Due to improved ammonia level and signs of dehydration, will hold lactulose tonight. Patient requiring admission for further evaluation and treatment. Discussed with Dr. Ruelas (hospitalist) who is in agreement with admission. Discussed findings and plan with patient and family, who acknowledge understanding and agreement. Dragon Disclaimer Dragon Disclaimer This electronic medical record was generated, in whole or in part, using a voice recognition dictation system. Departure Departure: Impression: Primary Impression: Acute metabolic encephalopathy Additional Impressions: Dehydration Lactic acidosis Disposition: ADMITTED INPATIENT Admitting Physician: Toya Ruelas Condition: GUARDED Referrals: DELORIS KOROMA (PCP) Problem Qualifiers AURY RICCI DO Aug 04, 2018 21:19
[2018-08-04 21:45] VITALS: BP 135/50
[2018-08-04 23:11] LABS: BACTERIA,URINE FEW /HPF (0-FEW); BILIRUBIN,URINE NEG (NEG); CLARITY,URINE HAZY; COLOR,URINE YELLOW; GLUCOSE,URINE NEG (NEG); NITRITE,URINE NEG (NEG); RBC,URINE OCC /HPF (0-2); SQUAMOUS EPITHELIAL CELL,UR MOD /LPF; UROBILINOGEN,URINE 0.2 mg/dL (0.2 mg/dL); YEAST,URINE PRESENT /HPF
[2018-08-05] MEDS: IV NORMAL SALINE 1,000ML 1,000 ML IV SCH ×3 (02:16→17:12)
[2018-08-05 03:15] VITALS: BP 142/84
--- NOTE | 2018-08-05 05:00 | EKG ---
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
[2018-08-05 06:16] VITALS: BP 93/60
[2018-08-05] MEDS: INSULIN LISPRO 300 UNITS/3 ML INSULN.PEN. SQ SCH ×3 (08:00→17:14)
[2018-08-05 10:22] VITALS: BP 109/68
[2018-08-05] MEDS ORDERED: LACTULOSE 20 GM/30 ML SOLUTION. PO SCH (12:30)
--- NOTE | 2018-08-05 13:08 | HP ---
ADMIT DATE: 08/04/2018 HISTORY OF PRESENT ILLNESS: The patient is a 63-year-old female patient, who came to the Emergency Room, again complaining of lower abdominal pain, increased confusion with known elevated ammonia level. She stated that she has been getting worse over the last 4-5 days. The patient was seen in the Emergency Room at [facility] on Sunday and as per [facility] review, was noted to have high ammonia of 161. The patient had elected at that time to go home and increase her dosing of lactulose. She denied any fever or chills. She apparently fell twice yesterday. Denied any head trauma or neck pain. Denied any loss of consciousness. She did complain of some neck pain, had some nausea, although she has not had any since last night or here this morning. She has been having diarrhea due to lactulose. The patient reports symptoms have become worse yesterday and therefore she called the souvenir street vendor to [place], will instruct the patient to present to the Emergency Room for further evaluation. In the Emergency Room, she was found to have ammonia levels that are still high at 96. She has also slightly impaired kidney function as well as lactic acidosis. PAST MEDICAL HISTORY: Significant for liver cirrhosis secondary to nonalcoholic steatohepatitis. She is also known to have diabetes, hyperlipidemia and hyperthyroidism. Other medical problems include gastroesophageal reflux disease. She has a history of esophageal stricture. She has multiple admissions with hepatic encephalopathy to [facility] and [facility]. PAST SURGICAL HISTORY: Significant for liver biopsy, esophagogastroduodenoscopy, colonoscopy, esophageal stricture, dilatation, cholecystectomy, appendectomy, total abdominal hysterectomy and bilateral salpingo-oophorectomy. She has also back surgery x 2. She was also seen by a pain management for spinal epidural steroid injection and also Botox injection. She apparently has had a transjugular hepatic biopsy, which showed according to her what seemed to be nonalcoholic steatohepatitis. ALLERGIES: She is allergic to CEPHALEXIN, CODEINE, DAPAGLIFLOZIN, AND IODINE. FAMILY HISTORY: She has 3 sisters, all younger. One of them because of alcoholic liver disease. The other two are known to have diabetes. Her father of cancer and mother is still alive in her 70s. SOCIAL HISTORY: She is , has 2 daughters. She quit smoking 15 years ago. She used to smoke up to 1 pack a day, does not drink alcohol or use recreational drugs. She worked in [employer] as well as other. She was also worked in [employer]. MEDICATIONS: She is currently on following medications: She is on Zyrtec 10 mg once a day, sulfamethoxazole/trimethoprim 1 tablet p.o. b.i.d., rifaximin 550 mg twice a day, Flexeril 10 mg once a day, metoprolol succinate 25 mg once a day, lisinopril 40 mg daily, aspirin 81 mg once a day, meloxicam 15 mg daily, hydrocodone/CPAP 5/325 one tablet once a day, Tylenol 650 mg every 8 hours, pregabalin 75 mg once a day, Wellbutrin 150 mg daily, lactulose 30 mL p.o. t.i.d., omeprazole 40 mg once a day, magnesium oxide 400 mg twice a day, ondansetron 8 mg 3 times a day, omeprazole 40 mg once daily, Linzess 145 mcg once a day, Trulicity 1.5 mg subcutaneous weekly. She is also on Toujeo KwikPen 35 units 3 times a day before meals, levothyroxine sodium 137 mcg p.o. daily, cyanocobalamin 1000 mcg p.o. daily, cholecalciferol 5000 international unit once a day, multivitamin 1 tablet once a day, and melatonin 3 mg at bedtime. REVIEW OF SYSTEMS: As per history of present illness. PHYSICAL EXAMINATION: GENERAL: On arrival to the Emergency Room, the patient was somewhat lethargic, but arousable. There is no pallor, jaundice or cyanosis. No lymphadenopathy, no thyromegaly. No jugular venous distension. No lower limb edema. VITAL SIGNS: Her heart rate was 72, blood pressure 113/56, temperature was 98.4, respiratory rate was 20, and oxygen saturation was 97% on room air. HEAD, EYES, EARS, NOSE AND THROAT: Showed normocephalic, atraumatic. NECK: Supple. HEART: Showed normal first and second heart sounds with no gallop, rub or murmur. CHEST: Clear to auscultation. No crepitation or rhonchi. ABDOMEN: Distended, soft, nontender. No guarding or rigidity. No organomegaly. All hernial orifices intact. Bowel sounds normal. NEUROLOGIC: She was somewhat lethargic, but arousable. All cranial nerves intact. EXTREMITIES: She moves extremities without difficulty. She ambulates without assistance or assistive devices. LABORATORY DATA: On admission showed that her serum sodium 141, potassium 4.7, chloride 105, bicarbonate 25, anion gap of 11, BUN 19, creatinine 1.3, estimated GFR was 41 mL per minute. Her glucose was 123, calcium was 10.9, magnesium was 2.4. Total bilirubin 1.3. AST, ALT, alkaline phosphatase slightly elevated. Total protein was 8.1, albumin was 3.6 and lipase was 156. Her prothrombin time was 11.5, INR of 1.2, aPTT was 23 and urinalysis showed the urine was yellow, hazy with a pH of 5.5, specific gravity of 1.030. There was large amount of protein. The urine was negative for glucose. There was trace of ketones, negative for blood, nitrite and leukocyte esterase. There are no rbc's, 1-4 wbc's, and very few bacteria. Her chest x-ray showed that the cardiomediastinal silhouette is within normal limits. There are no pleural effusions. There is no pulmonary vascular congestion, no pneumothorax. The lungs are clear. No significant osseous abnormalities are identified. Surgical clips are identified in the left upper quadrant abdomen. She did have a CT scan of the head and cervical spine, which basically showed that the walton and white matter appeared normal and symmetrical for the patient's age. There is no mass effect, extraaxial fluid collection or hydrocephalus. There is no gross bleed. There is no focal loss of [place] white matter distinction to suggest acute ischemia. Her x-ray of the cervical spine showed that there is no acute finding. She had had also a CT scan of the abdomen and pelvis, which showed that the lung bases are clear, heart size within normal limits. Three-vessel coronary artery vascular calcification identified. Evaluation of the solid abdominal viscera is limited by lack of intravenous contrast. There is a 5 mm hypodense lesion in the right hepatic lobe, which is too small to characterize; however, statistically favors to represent a simple cyst or hemangioma. Spleen is not enlarged. Adrenal glands are normal in appearance. Pancreas is normal in appearance. Gallbladder surgically absent. Abdominal aorta is normal in course and caliber with the dense calcified atheromatous plaques. There are no pathologically enlarged lymph nodes in the abdomen and pelvis. There is no free fluid or free intraperitoneal air. Kidneys are symmetrical in appearance. No calculi identified within the kidneys, ureters, and urinary bladders. No hydronephrosis, no contour ____ mass. Mildly distended fluid filled bowel loops are identified within the central abdomen measuring up to 2.1 cm. No dilated loops of postoperative changes identified from the gastric bypass surgery. No adjacent inflammatory changes are identified. Appendix is not visualized. Small amount of fluid identified throughout the colon. Urinary bladder is within normal limits given degree of distention. No suspicious pelvic abnormality identified. No suspicious osseous amount identified. Moderate degenerative disk disease of the lumbar spine is present. IMPRESSION: The patient has fluid filled mildly distended small bowel loops, which may be seen with enteritis. She has postoperative changes identified from gastric bypass surgery without adjacent inflammation. A 5 mm hypodensity within the right hepatic lobe is statistically favored, representing a simple cyst or hemangioma. PLAN: To continue with IV fluid, continue with antiemetic. Continue with lactulose. I will increase lactulose to 45 mL every 4 hours. We will monitor her lab work closely and continue with rifaximin. Her calcium was also high, so I will hold vitamin D. TRICIA SWEET MD DR: MELAINA/eli JOB#: [id number] / [id number]
[2018-08-05 14:08] VITALS: BP 128/74
[2018-08-05] MEDS: LACTULOSE 20 GM/30 ML SOLUTION. PO SCH ×2 (16:36→20:59)
[2018-08-05 18:23] VITALS: BP 119/71
[2018-08-05] MEDS ORDERED: TRULICITY 1.5 MG/0.5 ML SQ SCH (19:30)
[2018-08-05] MEDS: ONDANSETRON PF 4 MG/2 ML VIAL. IV PRN (20:56)
[2018-08-05] MEDS: MELATONIN 3 MG TABLET PO SCH (20:57)
[2018-08-05] MEDS: MAGNESIUM OXIDE 400 MG TABLET PO SCH (20:58)
[2018-08-05] MEDS: METOPROLOL TART IMMED RELEASE 25 MG TABLET PO SCH (20:58)
[2018-08-05] MEDS ORDERED: INSULIN GLARGINE 300 UNITS/3 ML INSULN.PEN. SQ SCH (21:00)
[2018-08-05] MEDS: TOUJEO SQ SCH (21:01)
[2018-08-05] MEDS: rifAXIMin 550 MG TABLET PO SCH (21:02)
[2018-08-05 23:24] VITALS: BP 101/57
[2018-08-06] MEDS: LACTULOSE 20 GM/30 ML SOLUTION. PO SCH ×5 (00:30→20:55)
[2018-08-06] MEDS: LEVOTHYROXINE 137 MCG TABLET PO SCH (04:51)
[2018-08-06 04:56] VITALS: BP 109/63
[2018-08-06 06:14] LABS: HEMATOCRIT 37.1 % (36.0-47.0); HEMOGLOBIN 12.4 g/dL (12.0-15.5); RED BLOOD COUNT 3.99 x10^6/uL (3.50-5.40); WHITE BLOOD COUNT 4.4 x10^3/uL (4.0-11.0)
[2018-08-06 06:22] LABS: CALCIUM 8.2 mg/dL (8.5-10.1); CREATININE 0.7 mg/dL (0.6-1.0); GFR 84.8; MAGNESIUM 1.7 mg/dL (1.8-2.4); POTASSIUM 3.2 mmol/L (3.5-5.1)
[2018-08-06] MEDS: INSULIN LISPRO 300 UNITS/3 ML INSULN.PEN. SQ SCH ×3 (08:00→17:00)
[2018-08-06] MEDS ORDERED: POTASSIUM CHLORIDE 20 MEQ TABLET.ER. PO ONE (08:00)
[2018-08-06] MEDS: MAGNESIUM OXIDE 400 MG TABLET PO SCH ×2 (08:22→20:51)
[2018-08-06] MEDS: MULTIVITAMIN with MINERAL TABLET. PO SCH (08:22)
[2018-08-06] MEDS: CETIRIZINE HCL 10 MG TABLET PO SCH (08:23)
[2018-08-06] MEDS: PANTOPRAZOLE 40 MG TABLET. PO SCH (08:23)
[2018-08-06] MEDS: buPROPion XL 150 MG TAB.ER.24H PO SCH (08:23)
[2018-08-06] MEDS: PREGABALIN 75 MG CAPSULE PO SCH (08:23)
[2018-08-06] MEDS: rifAXIMin 550 MG TABLET PO SCH ×2 (08:24→20:51)
[2018-08-06] MEDS: METOPROLOL TART IMMED RELEASE 25 MG TABLET PO SCH ×2 (08:24→20:51)
[2018-08-06] MEDS: CYANOCOBALAMIN (VITAMIN B-12) 1,000 MCG TABLET. PO SCH (08:25)
[2018-08-06] MEDS: TOUJEO SQ SCH ×2 (08:25→20:51)
[2018-08-06] MEDS: ONDANSETRON PF 4 MG/2 ML VIAL. IV PRN (10:20)
[2018-08-06 10:40] VITALS: BP 125/75
[2018-08-06 15:05] VITALS: BP 124/73
[2018-08-06 19:58] VITALS: BP 113/67
[2018-08-06] MEDS: MELATONIN 3 MG TABLET PO SCH (20:51)
[2018-08-06 21:45] VITALS: BP 139/75
--- NOTE | 2018-08-06 21:56 | PN ---
DATE: 08/06/2018 SUBJECTIVE: The patient is resting, slightly propped up in bed, definitely more awake, alert and did complain of dysphagia and apparently had a history of esophageal stricture that required dilatation before by Dr. Lala about a year ago. I offered to transfer her to [facility]; however, she opted to continue treatment for her hepatic encephalopathy here and then contact Dr. Lala for upper GI endoscopy and esophageal dilatation again. PHYSICAL EXAMINATION: GENERAL: When I saw her this morning, she looked pale, not jaundiced, cyanosed. No lymphadenopathy, no thyromegaly. No jugular venous distension. No lower limb edema. VITAL SIGNS: Her heart rate was 75, blood pressure 125/75, temperature was 98, respiratory rate 20, and oxygen saturation was 98% on room air. HEAD, EYES, EARS, NOSE AND THROAT: Showed normocephalic, atraumatic. NECK: Supple. HEART: Showed normal first and second heart sounds with no gallop, rub or murmur. CHEST: Clear to auscultation. No crepitation or rhonchi. ABDOMEN: Distended, soft, nontender. NEUROLOGIC: She is definitely more awake, alert, responding appropriately. All her cranial nerves intact. She moves extremities without difficulty. She ambulates without assistance or assistive devices. Her intake over the last 24 hours was 2100, no output was recorded. LABORATORY DATA: As of this morning, her serum sodium was 144, potassium 3.2, chloride 110, bicarbonate 21, anion gap of 13, BUN 12, creatinine 0.7, estimated GFR was 85 mL per minute. Her glucose 106, calcium was 8.2, and magnesium was 1.7. Her ammonia is down to 41. Her white cell count is 4400, hemoglobin 12.4, hematocrit 37, MCV 93, and platelet count of 90,000. Her prothrombin time was 11.5, INR 1.2, APTT was 23. Urinalysis was unremarkable. ASSESSMENT: 1. Hepatic encephalopathy, improving. Her ammonia is down from 96 to 41. 2. 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 3. Acute kidney injury, improving. Her creatinine is down from 1.3 to 1.7. 4. Type 2 diabetes mellitus, seems to be reasonably controlled. 5. Dysphagia likely due to esophageal stricture. PLAN: To continue with current plan of management. Hypokalemia that was replenished by electrolyte protocol. We will continue with this current plan of management and tomorrow if her feeling much better, we can discharge her back home to follow with Dr. Lala for her esophageal stricture. TRICIA SWEET MD DR: MELANIA/eli JOB#: [id number] / [id number]
[2018-08-06 23:24] VITALS: BP 120/73
[2018-08-07] MEDS: LACTULOSE 20 GM/30 ML SOLUTION. PO SCH ×3 (03:19→14:09)
[2018-08-07 05:10] VITALS: BP 108/62
[2018-08-07] MEDS: LEVOTHYROXINE 137 MCG TABLET PO SCH (05:13)
[2018-08-07 06:23] LABS: CALCIUM 8.6 mg/dL (8.5-10.1); CREATININE 0.7 mg/dL (0.6-1.0); GFR 84.8; POTASSIUM 3.1 mmol/L (3.5-5.1)
[2018-08-07] MEDS: INSULIN LISPRO 300 UNITS/3 ML INSULN.PEN. SQ SCH ×2 (08:00→12:00)
[2018-08-07] MEDS: PANTOPRAZOLE 40 MG TABLET. PO SCH (09:23)
[2018-08-07] MEDS: buPROPion XL 150 MG TAB.ER.24H PO SCH (09:23)
[2018-08-07] MEDS: rifAXIMin 550 MG TABLET PO SCH (09:24)
[2018-08-07] MEDS: PREGABALIN 75 MG CAPSULE PO SCH (09:24)
[2018-08-07] MEDS: MULTIVITAMIN with MINERAL TABLET. PO SCH (09:24)
[2018-08-07] MEDS: CYANOCOBALAMIN (VITAMIN B-12) 1,000 MCG TABLET. PO SCH (09:24)
[2018-08-07] MEDS: CETIRIZINE HCL 10 MG TABLET PO SCH (09:24)
[2018-08-07] MEDS: MAGNESIUM OXIDE 400 MG TABLET PO SCH (09:25)
[2018-08-07] MEDS: METOPROLOL TART IMMED RELEASE 25 MG TABLET PO SCH (09:26)
[2018-08-07] MEDS: TOUJEO SQ SCH (09:29)
[2018-08-07 10:28] VITALS: BP 122/70
[2018-08-07 11:00] VITALS: BP 151/77
--- NOTE | 2018-08-07 13:07 | RAD ---
EXAM: Chest, 2 views HISTORY: Chest pain. COMPARISON: 08/04/2018 FINDINGS: 2 views of the chest are obtained. There is no infiltrate, pleural effusion or pneumothorax. The heart is normal in size. IMPRESSION: No acute pulmonary finding. Electronically signed by: Precious Woodard MD (08/07/2018 1:03 PM) [facility]
[2018-08-07] MEDS ORDERED: POTASSIUM CHLORIDE 20 MEQ TABLET.ER. PO SCH (14:00)
--- NOTE | 2018-08-07 14:22 | EKG ---
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
[2018-08-07 14:35] LABS: CALCIUM 8.9 mg/dL (8.5-10.1); CREATININE 0.8 mg/dL (0.6-1.0); GFR 72.7; POTASSIUM 3.4 mmol/L (3.5-5.1)
[2018-08-07 15:49] VITALS: BP 151/77
--- NOTE | 2018-08-07 16:42 | CONS ---
DATE OF CONSULTATION: 08/07/2018 REASON FOR CONSULTATION: Chest pain. HISTORY OF PRESENT ILLNESS: The patient is a 63-year-old woman with past medical history as noted below, who presents to the hospital in the setting of metabolic encephalopathy due to elevated ammonia and her history of BENÍTEZ. She was about to be discharged today and felt sudden chest pain associated with shortness of breath, which she did not experienced in the past. She states that her chest pain is resolved without any significant intervention. Evaluation including an EKG and serial enzymes have been unremarkable. Of note, review of her chart reveals that she has had a longstanding history of chest pain dating back all the way to 2009, over which she has had multiple stress tests and echocardiograms which have been unremarkable. She has also had a cardiac catheterization in 2010 per records, which did not reveal any significant pathology. She reports that she had a stress test within the last year, through [facility] and Dr. London. Apparently, her stress test was unremarkable. She otherwise denies any exertional angina at home. No syncope or palpitations. She reports compliance with her medications including beta blockers. PAST MEDICAL HISTORY: 1. Nonalcoholic steatohepatitis. 2. Chest pain, chronic. 3. Diabetes type 2. 4. Dyslipidemia. 5. Gastroesophageal reflux disease with history of stricture and esophageal dilation. ALLERGIES: ANTIBIOTICS and PAIN MEDICATIONS as well IODINE, although suspect this is a contrast allergy. FAMILY HISTORY: Noncontributory. SOCIAL HISTORY: The patient is and has two children. She quit smoking remotely. CURRENT CARDIAC MEDICATIONS: Of note, Metoprolol tartrate 25 mg p.o. b.i.d. REVIEW OF SYSTEMS: Otherwise, negative unless noted above in HPI. PHYSICAL EXAMINATION: VITAL SIGNS: Afebrile, 78, 20, 151/77, 97% on room air. GENERAL: She appears mildly fatigued, but otherwise is alert and oriented, in no acute distress. HEAD AND NECK: Unremarkable. CARDIAC: Regular rate and rhythm. LUNGS: Clear to auscultation. ABDOMEN: Obese, protuberant, nontender, nondistended. EXTREMITIES: Trace to 1+ pitting edema. NEUROLOGIC: No focal deficits. MUSCULOSKELETAL: No obvious trauma. DIAGNOSTIC STUDIES: Hemoglobin is within normal limits. Creatinine is unremarkable. She is mildly hypokalemic. Cardiac enzymes are negative x 2. EKG demonstrates sinus rhythm without any significant ischemic abnormalities. Chest x-ray is also unremarkable. IMPRESSION: Chest pain: Differential diagnosis is broad, could be related to musculoskeletal issues. Cannot rule out occult coronary spasm. She also has severe BENÍTEZ and stricture and this may have contributed to esophageal spasm. Nonetheless, at this present time, she does not appear to be showing any signs of ischemia in light of a normal stress test within the last year. She can be safely discharged with further outpatient workup as needed. Thank you for this consultation. Please call with any further questions. NESTOR BRUSH MD DR: JUN/eli JOB#: [id number] / [id number]
--- NOTE | 2018-08-07 17:37 | DS ---
DATE OF DISCHARGE: 08/07/2018 HISTORY OF PRESENT ILLNESS: The patient is a 63-year-old female patient who was admitted with lower abdominal pain, increased confusion with known elevated ammonia level. She stated that she has been getting worse over the last 4-5 days. The patient was seen in the Emergency Room of [facility] on Sunday and as per [employer] review was noted to have high ammonia of 161. She elected at that time to go home and increased her dose of lactulose. She denied any fever or chills. She apparently fell twice, the day before admission. Denied any head trauma or neck pain. Denied any loss of consciousness. She did complain of some neck pain. Has some nausea, although she has not had any since admission. She has been having diarrhea due to lactulose. The patient reports symptoms have become worse the day before admission. Therefore, she called her medical care administrator at , who instructed the patient to present to the Emergency Room for further evaluation. In the Emergency Room, she was found again a high ammonia level of 96 and also slightly impaired kidney function as well as lactic acidosis. She was started on IV fluid and we increased her lactulose and she did actually very well. Her ammonia level came down from 96 to 44. Her creatinine has improved also from 1.3 to 0.8. She did complain of chest pain. We did an EKG, chest x-ray and cardiac enzymes all ruled out and as she follows with Dr. London and his group from [facility] and has had esophageal stricture dilated before by Dr. Lala. Decision was made to discharge her home to follow with her primary automatic spinning lathe operator as well as the general teller for possible esophageal stricture dilatation. She was given clear instruction about the cause of her hepatic encephalopathy and the need to be mandaeism in taking her lactulose and change the dose according to how many bowel movements she has. She was advised to aim at least for 2 bowel movements that are preferably loose. PHYSICAL EXAMINATION: GENERAL: When I examined her this afternoon, she looked well and was clearly in no apparent respiratory distress. No pallor, jaundice, cyanosis, or thyromegaly. No jugular venous distension. No limb edema. VITAL SIGNS: Her heart rate was 78, blood pressure 151/77, temperature was 98, respiratory rate 20, and oxygen saturation was 97%. HEAD, EYES, EARS, NOSE AND THROAT: Showed normocephalic, atraumatic. NECK: Supple. HEART: Showed normal first and second heart sounds with no gallop, rub or murmur. CHEST: Clear to auscultation. No crepitation or rhonchi. ABDOMEN: Distended, soft, nontender. NEUROLOGIC: She is definitely more awake, alert, responding appropriately. All cranial nerves are intact. She moves extremities without difficulty. She ambulates without assistance or assistive devices. Her intake over the last 24 hours was 3500, no output was recorded. LABORATORY DATA: Her lab work this morning showed a white cell count 4500, hemoglobin 12, hematocrit 37, MCV 93, and platelet count of 90,000. Her chemistry showed a serum sodium 142, potassium 3.4, chloride 107, bicarbonate 26, anion gap of 9, BUN 7, creatinine 0.8, estimated GFR was 73 mL per minute. Her glucose 146, calcium was 8.9. Her prothrombin time was 11.5, INR 1.2, APTT was 23. Urinalysis was unremarkable. DISCHARGE MEDICATIONS: She was discharged home to continue on following medications: Aspirin 81 mg once a day, Wellbutrin 150 mg once a day, cetirizine for Zyrtec 10 mg once a day, cholecalciferol 5000 international unit once a day, cyanocobalamin 1000 mcg tablet once a day, Flexeril 10 mg 3 times a day, Trulicity 1.5 mg 0.5 mL Pen injection once a week, Lantus, Toujeo SoloSTAR insulin 50 units subcutaneously twice a day. She is also on Humalog insulin KwikPen 35 units subcutaneously 3 times a day before meals, lactulose 30 mL 3 times a day, levothyroxine sodium 137 mcg once a day, linaclotide for Linzess 145 mcg capsule daily, lisinopril 40 mg once a day, magnesium oxide 400 mg twice a day, melatonin ____ mg at bedtime, Meloxicam ____ mg daily, metoprolol succinate 25 mg daily, multivitamin 1 tablet once a day, omeprazole 40 mg once a day, ondansetron for Zofran 8 mg 3 times a day, pregabalin for Lyrica 75 mg once a day and rifaximin 550 mg twice a day. FINAL DISCHARGE DIAGNOSES: 1. Acute hepatic encephalopathy, improving. Her ammonia came down from 161 down to 44. 2. Liver cirrhosis due to nonalcoholic steatohepatitis. 3. Acute kidney injury, resolving. Her creatinine came down from 1.3 to 0.7. 4. Type 2 diabetes mellitus, seems to be reasonably controlled. 5. Dysphagia, likely due to esophageal stricture. The patient was advised to follow with her automatic spinning lathe operator as well as general teller. She was also advised to avoid a precipitant of hepatic encephalopathy including a lot of pain medication, sedative and to take her lactulose religiously. TRICIA SWEET MD DR: MELANIA/eli JOB#: [id number] / [id number]
--- NOTE | 2018-08-07 18:57 | PN ---
DATE: 08/07/2018 SUBJECTIVE: The patient is a 63-year-old female patient, who was admitted with altered mental status and found to be in hepatic encephalopathy with high ammonia. She is known to have cirrhosis due to nonalcoholic steatohepatitis and was seen initially last Sunday in the Emergency Room, was advised to increase her lactulose and admission was recommended, but the patient apparently opted to go home, but did not do well and continued to be lethargic and we did actually admitted her and increase her lactulose to 60 mL every 4 hours. Her ammonia was elevated up to 96 microgram and that she responded yesterday her ammonia is down to 41. I cut down her lactulose yesterday to 60 mL every 6 hours and she did actually very well. She is more awake, alert, but today she started complaining of retrosternal chest pain that radiating through and through to the back, so we did an EKG, which showed that she was in sinus rhythm in lead 3 and therefore we will arrange for Cardiology consult and also to do 2 more sets of cardiac enzyme. She apparently has had stress test done a year ago by Dr. London' office and apparently was unremarkable. PHYSICAL EXAMINATION GENERAL: When I examined her this afternoon; she looked pale, but no jaundice, cyanosis, or thyromegaly. No jugular venous distension. No limb edema. VITAL SIGNS: Her heart rate was 79, blood pressure 122/70, temperature was 98, respiratory rate 20, and oxygen saturation was 98%. HEAD, EYES, EARS, NOSE AND THROAT: Showed normocephalic, atraumatic. NECK: Supple. HEART: Showed normal first and second heart sounds with no gallop, rub or murmur. CHEST: Clear to auscultation. No crepitation or rhonchi. ABDOMEN: Distended, soft, nontender. NEUROLOGIC: She is definitely more awake, alert, responding appropriately. All cranial nerves are intact. She moves extremities without difficulty. Her chemistry showed her serum sodium is 143, potassium 3.1, chloride 109, bicarbonate 23, anion gap of 11, BUN 7, creatinine 0.7, estimated GFR at 84 mL per minute. Her glucose 111, calcium was 8.5. ASSESSMENT: 1. Hepatic encephalopathy, improving. Her ammonia is slightly up to 44 microgram per liter. 2. Advanced liver cirrhosis due to nonalcoholic steatohepatitis. 3. Acute kidney injury, improving. Her creatinine is down further from 1.3-0.7. 4. Type 2 diabetes seems to be reasonably controlled. 5. Dysphagia, likely esophageal stricture. PLAN: My plan is to do 2 more sets of cardiac enzyme and if they are both negative and the truck headlight assembler recommended that she can be discharged home and no further workup, she can be discharged home tonight. TRICIA SWEET MD DR: MELANIA/eli JOB#: [id number] / [id number]
== END 2018-08-07 16:51 | disposition home or self-care (01) | DRG 432 ==
LOC: ER 18:36 → 1 SOUTH 20:00
PROVIDERS: ADMIT Internal Medicine; ATTEND Internal Medicine
DX: K70.40 Alcoholic hepatic failure without coma (principal); G93.41 Metabolic encephalopathy; E87.2 Acidosis; N17.9 Acute kidney failure, unspecified; E86.0 Dehydration; K75.81 Nonalcoholic steatohepatitis (NASH); D18.03 Hemangioma of intra-abdominal structures; E03.9 Hypothyroidism, unspecified; E11.9 Type 2 diabetes mellitus without complications; E78.00 Pure hypercholesterolemia, unspecified; E78.5 Hyperlipidemia, unspecified; F17.210 Nicotine dependence, cigarettes, uncomplicated; I10 Essential (primary) hypertension; K21.9 Gastro-esophageal reflux disease without esophagitis; K22.2 Esophageal obstruction; Z83.3 Family history of diabetes mellitus; Z90.49 Acquired absence of other specified parts of digestive tract; Z90.710 Acquired absence of both cervix and uterus; Z98.84 Bariatric surgery status; Z80.9 Family history of malignant neoplasm, unspecified; F32.9 Major depressive disorder, single episode, unspecified
CPT/HCPCS: 36415; 70450; 71045; 71046; 72125; 74176; 80048; 80053; 80061; 81001; 82140; 82550; 82553; 82947; 83605; 83690; 83735; 84132; 84484; 85025; 85027; 85610; 85730; 93005; 96361; 96374; 96375; J1815; J2405; J3010; J3490; 99285-25; J7030

== ENCOUNTER → 2018-09-16 | Outpatient (CLI) | payer MEDICARE ==
--- NOTE | 2018-09-16 13:01 | RAD ---
Left foot radiograph 09/16/2018 12:00 AM INDICATION: Left foot pain COMPARISON: None available. TECHNIQUE: 2 views the left foot are provided. FINDINGS: There is no acute fracture or dislocation. Bone mineralization is within normal limits. There is tarsometatarsal joint space narrowing with marginal osteophytosis. Regional soft tissues are within normal limits. There is no soft tissue gas or osseous erosion. Moderate plantar calcaneal enthesophyte. IMPRESSION: Mild midfoot osteoarthrosis without acute fracture or dislocation. Electronically signed by: Alexa Luciano MD (09/16/2018 12:58 PM) [facility]
== END | disposition home or self-care (01) ==
LOC: PMG 11:14
PROVIDERS: ATTEND Registered Nurse
DX: M19.072 Primary osteoarthritis, left ankle and foot (principal)
CPT/HCPCS: 73620

== ENCOUNTER → 2020-06-21 | Outpatient (CLI) | payer MEDICARE ==
[~2020-06-21] MED LIST changes: -ASPI-612 PO; +ASPI-889 PO; -BUPR-192 PO; +BUPR150T7 PO; -CETI10TA22 PO; +CETI10TA74 PO; +CYAN-25 PO; -CYAN10005 PO; -GLIM4TAB2 PO; +GLIM4TAB8 PO; -LACT10SO PO; +LACT10SO2 PO; +LISI1TAB20 PO; +LISI1TAB23 PO; -LISI1TAB3 PO; +LISI1TAB37 PO; -LISI1TAB5 PO; -LISI1TAB7 PO; -LISI40TA PO; +LISI40TA6 PO; -MECL12.52 PO; +MECL12.574 PO; -MELA3TAB2 PO; +MELA3TAB4 PO; +METF-658 PO; -METF500T9 PO; +MULT-445 PO; -MULT1TAB52 PO; +OMEP20CA16 PO; -OMEP20CA9 PO; +OMEP40CA45 PO; -OMEP40CA5 PO; -RABE20TA26 PO; +RABE20TA29 PO; +RANI-376 PO; -RANI150T21 PO; +[UNRECOGNIZED DRUG - CODE] PO; -[UNRECOGNIZED DRUG - CODE] PO
--- NOTE | 2020-06-23 20:19 | RAD ---
DATE: 06/21/2020 EXAM: DIGITAL SCREEN BILAT W/CAD HISTORY: Screening COMPARISON: 08/25/2016, 06/14/2012 This study was interpreted with the benefit of Computerized Aided Detection (CAD). Breast Density: SCATTERED The breast parenchyma shows scattered fibroglandular densities. Breast parenchyma level B. FINDINGS: No suspicious mass, calcification, or architectural distortion in either breast. IMPRESSION: No evidence of malignancy. BI-RADS CATEGORY: 1 NEGATIVE RECOMMENDED FOLLOW-UP: 12M 12 MONTH FOLLOW-UP PQRS compliance statement: Patient information was entered into a reminder system with a target due date for the next mammogram. Mammography is a sensitive method for finding small breast cancers, but it does not detect them all and is not a substitute for careful clinical examination. A negative mammogram does not negate a clinically suspicious finding and should not result in delay in biopsying a clinically suspicious abnormality. "Our facility is accredited by the [employer] Mammography Program."
== END ==
LOC: MAMMO 09:45
PROVIDERS: ATTEND Family Medicine
DX: Z12.31 Encounter for screening mammogram for malignant neoplasm of breast (principal)
CPT/HCPCS: 77067

== ENCOUNTER 2020-07-13 01:54 | Inpatient (IN) | payer MEDICARE ==
[~2020-07-13] VITALS: Ht 162.6 cm; Wt 101.8 kg
[~2020-07-13 01:54] MED LIST changes: +BUPR150T21 PO; -BUPR150T7 PO; -MECL12.574 PO; +MECL12.582 PO
--- NOTE | 2020-07-13 02:09 | PHYS DOC ---
Past History Past Medical History: Depression, Diabetes, High Cholesterol, Hypertension, Hypothyroid, Liver Disease, Other Past Surgical History: Appendectomy, Cholecystectomy, , Hysterectomy, Tonsillectomy, Other Alcohol Use: None Drug Use: None Adult General HPI HPI Patient is a 65-year-old female with a past medical history significant for insulin-dependent diabetes, liver disease, hypothyroidism, hypertension, hyperlipidemia who presents to the emergency department with a chief complaint of altered mental status. Patient's brother called the ambulance stating that he noticed that she began becoming sleepy and more confused yesterday afternoon. States this has happened to her before when her liver was not working. Patient denies headache, changes in vision, chest pain, abdominal pain, nausea, vomiting, diarrhea. States she does feel little out of breath. States she does feel foggy and is having trouble remembering things over the last couple of days. Denies any recent travel, known ill contacts, illnesses, fevers. Does state that her urine seems a little darker than usual. Review of Systems Review of Systems Review of systems otherwise unremarkable except noted in HPI Allergies Allergies Allergies Coded Allergies Type Severity Reaction Last Updated Verified cephalexin Allergy Intermediate 08/02/18 No codeine Allergy Intermediate 08/02/18 No dapagliflozin Allergy Intermediate 08/02/18 No iodine Allergy Intermediate HIVES, contrast OK when premedicated 08/02/18 Yes Physical Exam Physical Exam Constitutional: Well developed, well nourished, no acute distress, non-toxic appearance. [] HENT: Normocephalic, atraumatic, bilateral external ears normal, dry oropharynx, no oral exudates, nose normal. [] Eyes: PERRLA, EOMI, conjunctiva normal, no discharge. [] Neck: Normal range of motion, no tenderness, supple, no stridor. [] Cardiovascular: Tachycardia, no murmur Lungs & Thorax: Bilateral breath sounds clear to auscultation [] Abdomen: soft, no tenderness, no masses, no pulsatile masses. [] Skin: Warm, dry, no erythema, no rash. [] Back: No tenderness, no CVA tenderness. [] Extremities: No tenderness, no cyanosis, no clubbing, ROM intact, no edema. [] Neurologic: Patient alert to person and place but not time. Does seem slow to answer questions and confused about medical problems and medication she is taking EKG EKG Rate of 89, QRS of 86, QTc of 478, no STEMI [] Radiology/Procedures Radiology/Procedures [] Heart Score Risk Factors: Risk Factors: DM, Current or recent (<one month) smoker, HTN, HLP, family history of CAD, obesity. Risk Scores: Risk Factors: DM, Current or recent (<one month) smoker, HTN, HLP, family h istory of CAD, obesity. Course & Med Decision Making Course & Med Decision Making Patient is a 65-year-old female with multiple medical problems who presents with altered mental status over the last couple of days Vital signs notable for hypertension and tachypnea. Physical exam noted above. Patient placed on the monitor with 2 IV access sites established. EKG noted above with no STEMI. Troponin normal. Glucose initially 271. Lactate 3.7. VBG with a pH of 7.446, PCO2 of 32.5, PO2 of 51, bicarb of 22.4. Patient hypernatremic and hyperchloremic. Ammonia elevated at 92. Blood cultures obtained. Given 1 dose of broad-spectrum antibiotics in the emergency department. Started on IV fluid resuscitation. Discussed findings with patient and recommended admission to the hospital for continued evaluation and treatment of most likely hepatic encephalopathy. Patient verbalized understanding and agreed with plan of admission. [] Dragon Disclaimer Dragon Disclaimer This electronic medical record was generated, in whole or in part, using a voice recognition dictation system. Departure Departure: Impression: Primary Impression: Hepatic encephalopathy Additional Impressions: Metabolic alkalosis Hyperkalemia Elevated lactic acid level Disposition: ADMITTED INPT THIS HOSP Admitting Physician: Toya Ruelas Condition: STABLE Referrals: CESAR CARDOZA (PCP) Problem Qualifiers MARY LOU HUGHES MD Jul 13, 2020 02:09
[2020-07-13 02:55] LABS: BASO % 1 % (0-3); EOS % 1 % (0-3); HEMATOCRIT 42.2 % (36.0-47.0); LYMPH # 1.4 x10^3/uL (1.0-4.8); LYMPH % 28 % (24-48); MEAN CORPUSCULAR HEMOGLOBIN 33 pg (25-35); MEAN CORPUSCULAR HGB CONC 33 g/dL (31-37); MEAN CORPUSCULAR VOLUME 98 fL (79-100); MONO # 0.7 x10^3/uL (0.0-1.1); MONO % 13 % (0-9); NEUT # 2.9 x10^3uL (1.8-7.7); NEUT % 57 % (31-73); PLATELET COUNT 102 x10^3/uL (140-400); RED CELL DISTRIBUTION WIDTH 14.1 % (11.5-14.5)
[2020-07-13] MEDS ORDERED: IV NORMAL SALINE 1,000ML 1,000 ML IV ONE (03:00)
[2020-07-13 03:03] LABS: CALCIUM 9.4 mg/dL (8.5-10.1); CREATININE 1.2 mg/dL (0.6-1.0); GFR 45.2; POTASSIUM 3.8 mmol/L (3.5-5.1)
[2020-07-13 03:04] LABS: BACTERIA,URINE 0 /HPF (0-FEW); BILIRUBIN,URINE NEG (NEG); CLARITY,URINE CLEAR; COLOR,URINE YELLOW; GLUCOSE,URINE >=1000 mg/dL (NEG); NITRITE,URINE NEG (NEG); RBC,URINE 0 /HPF (0-2); SQUAMOUS EPITHELIAL CELL,UR OCC /LPF; UROBILINOGEN,URINE 0.2 mg/dL (0.2 mg/dL); WBC,URINE OCC /HPF (0-4)
[2020-07-13 03:07] LABS: ALBUMIN 3.2 g/dL (3.4-5.0); ALBUMIN/GLOBULIN RATIO 0.8 (1.0-1.7); MAGNESIUM 2.2 mg/dL (1.8-2.4); TOTAL BILIRUBIN 1.1 mg/dL (0.2-1.0); TOTAL PROTEIN 7.1 g/dL (6.4-8.2)
--- NOTE | 2020-07-13 03:20 | RAD ---
EXAM: CHEST ONE VIEW. HISTORY: Altered mental status, chest pain. COMPARISON: 08/07/2018. FINDINGS: A frontal view of the chest is obtained. There are no confluent infiltrates. There is no pneumothorax or pleural effusion. The heart is not en larged. There are atherosclerotic calcifications of the aorta. IMPRESSION: 1. No confluent infiltrates. Electronically signed by: Juliano Salinas MD (07/13/2020 3:17 AM) [facility]
--- NOTE | 2020-07-13 03:21 | RAD ---
EXAM: CT HEAD WITHOUT CONTRAST. HISTORY: Altered mental status. TECHNIQUE: Computed tomography of the head was performed without intravenous contrast. One or more of the following individualized dose reduction techniques were utilized for this examination: 1. Automated exposure control. 2. Adjustment of the mA and/or kV according to patient size. 3. Use of iterative reconstruction technique. COMPARISON: 08/04/2018. FINDINGS: There is no intracranial hemorrhage. Mancera-white differentiation is preserved. The ventricle s are normal in size and position. The visualized paranasal sinuses appear clear. The orbits are unremarkable. The temporal bones are un remarkable. The calvarium reveals no suspicious lesions. IMPRESSION: 1. No acute intracranial findings. Electronically signed by: Juliano Salinas MD (07/13/2020 3:19 AM) [facility]
--- NOTE | 2020-07-13 03:26 | RAD ---
EXAM: CT ABDOMEN/PELVIS WITHOUT CONTRAST. HISTORY: Right upper quadrant pain, altered mental status. TECHNIQUE: Computed tomography of the abdomen and pelvis was performed without intravenous contrast. One or more of the following individualized dose reduction techniques were utilized for this examinat ion: 1. Automated exposure control. 2. Adjustment of the mA and/or kV according to patient size. 3. Use of iterative reconstruction technique. COMPARISON: 08/04/2018. FINDINGS: Lung windows through the visualized portions of the bases reveal mild atelectasis. Bone win dows reveal no suspicious lesions. Large posterior disc-osteophyte complexes and facet and ligamentum flavum hypertrophy result in severe central canal stenosis from L3 through L5. There are laminectomy changes at L5. The gallbladder is surgically absent. There is a subcentimeter cyst in the right hepatic lobe. Respir atory motion artifact is noted. The spleen, adrenal glands, pancreas and kidneys are unremarkable wit hout contrast. Postoperative changes are noted along the stomach. There are no pathologically enlarged lymph nodes. The uterus is surgically absent. Sigmoid diverticulosis is moderate. There is no small bowel obstruct ion. IMPRESSION: 1. Postoperative changes as above. No cause for acute pain is identified. Electronically signed by: Juliano Salinas MD (07/13/2020 3:24 AM) [facility]
[2020-07-13] MEDS ORDERED: LACTULOSE 20 GM/30 ML SOLUTION. PO ONE (04:00)
--- NOTE | 2020-07-13 04:43 | EKG ---
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
[2020-07-13 07:00] VITALS: BP 144/64
[2020-07-13] MEDS ORDERED: FLU VACC QS 2020-21(6MOS+)/PF 0.5 ML SYRINGE. VAX IM ONE (09:00)
[2020-07-13 11:00] VITALS: BP 169/75
[2020-07-13] MEDS ORDERED: FLUT15.812 NS (12:13)
[2020-07-13] MEDS ORDERED: DOCU100C28 PO (12:13)
[2020-07-13] MEDS ORDERED: LACT10SO2 PO (12:13)
[2020-07-13] MEDS ORDERED: GABA-585 PO (12:13)
[2020-07-13 15:00] VITALS: BP 160/69
--- NOTE | 2020-07-13 15:51 | HP ---
ADMIT DATE: 07/13/2020 HISTORY OF PRESENT ILLNESS: The patient is a 65-year-old female patient, who was brought to the Emergency Room by her [id number] with a chief complaint of altered mental status. The patient's brother called the ambulance stating that he noticed that she began becoming sleepy and more confused yesterday afternoon. States that this happened to her before when her liver was not working. The patient denied any headache, change in vision, chest pain, abdominal pain, nausea, vomiting, or diarrhea. She states that she does feel a little out of breath. States she does feel foggy and is having trouble remembering things over the last couple of days. Denied any recent travel, known ill contact, illnesses, or fever. States that her urine seems to be a little darker than usual. She was extensively evaluated in the Emergency Room and has had lab work. CBC was mostly unremarkable; however, her chemistry showed that her serum ammonia was high at 92 with the upper limit of normal of 34. She does have mild lactic acidosis. Her sodium is high at 148 and was diagnosed with hepatic encephalopathy or more precisely metabolic encephalopathy, as her sodium is high at 148 and ammonia was high at 92. She has also lactic acidosis. She was treated with lactulose, and was admitted for close followup. Her CT scan of the abdomen and pelvis showed postoperative changes. As above, no cause for acute pain identified. In particular, there is no ascites. She was given IV fluid, IV levofloxacin, Flagyl, and lactulose. PAST MEDICAL HISTORY: Significant for liver cirrhosis secondary to nonalcoholic steatohepatitis. She is also known to have diabetes mellitus, hypertension, hyperlipidemia, and hyperthyroidism. Other medical problems include gastroesophageal reflux disease. She has a history of esophageal stricture. She has multiple admissions with hepatic encephalopathy at [facility] and [facility]. PAST SURGICAL HISTORY: Significant for liver biopsy, esophagogastroduodenoscopy, colonoscopy, esophageal stricture dilatation, cholecystectomy, appendectomy, total abdominal hysterectomy, and bilateral salpingo-oophorectomy. She has also back surgery x 2. She was also seen by pain management for spinal epidural steroid injection and also Botox injection. She apparently has had transjugular hepatic biopsy, which showed, according to her, what seemed to be nonalcoholic steatohepatitis. ALLERGIES: SHE IS ALLERGIC TO CEPHALEXIN, CODEINE, DAPAGLIFLOZIN, AND IODINE. FAMILY HISTORY: She has 3 sisters, all younger. One of them because of alcoholic liver disease. The other two are known to have diabetes. Her father of cancer and mother is still alive in her 70s. SOCIAL HISTORY: She is , has 2 daughters. She quit smoking 15 years ago. She used to smoke up to 1 pack a day. Does not drink alcohol or use any recreational drugs. She worked in [employer] as well as other including [employer] [place] [employer]. MEDICATIONS: She is currently on following medications: She is on cetirizine 10 mg once a day. She is on rifaximin 550 mg twice a day, metoprolol succinate 25 mg once a day, lisinopril 40 mg once a day, aspirin 81 mg once a day, gabapentin 100 mg twice a day, Wellbutrin 150 mg once a day, lactulose 20 grams daily, fluticasone propionate 2 sprays to each nostril once a day, Colace 100 mg once a day, ondansetron 8 mg three times a day, omeprazole 40 mg capsules once a day. She is on Trulicity 1.5 mg subcutaneously weekly. She is on Toujeo SoloSTAR insulin 50 units twice a day, and Humalog 35 units subcutaneously three times a day before meals. She is on levothyroxine sodium 150 mcg once a day, cyanocobalamin 1000 mcg once a day, cholecalciferol 5000 units once a day, and multivitamin 1 tablet once a day. REVIEW OF SYSTEMS: As per history of present illness. PHYSICAL EXAMINATION: GENERAL: On arrival to the Emergency Room, the patient looked well and was clearly in no apparent respiratory distress. There is no pallor, jaundice, or cyanosis. No lymphadenopathy, no thyromegaly. No jugular venous distention. No lower limb edema. VITAL SIGNS: Her heart rate was 88, blood pressure was 144/64, temperature 97.7, respiratory rate was 18, and oxygen saturation was 97%. HEAD, EYES, EARS, NOSE AND THROAT: Showed normocephalic, atraumatic. NECK: Supple. HEART: Showed normal first and second heart sounds. No gallop or murmur. CHEST: Clear to auscultation. No crepitation or rhonchi. ABDOMEN: Distended, soft, nontender. NEUROLOGIC: She is awake, alert, responding appropriately. All her cranial nerves are intact. EXTREMITIES: She moves extremities without difficulty. She has tremors in both hands, but they are not really consistent with hepatic asterixis. LABORATORY DATA: Her lab work this morning showed a serum sodium of 148, potassium 3.8, chloride 110, bicarbonate 23, anion gap of 15, BUN 14, creatinine 1.2, estimated GFR was 45 mL per minute. Her glucose was 171. She has lactic acid at 3.7, calcium was 9.4, magnesium was 2.2. Total bilirubin and alkaline phosphatase normal. AST and ALT are elevated. Ammonia was 92, total protein was 7.1, albumin was 3.1, and her serum lipase was 120. ASSESSMENT AND PLAN: In summary, this is a 65-year-old female patient who was admitted with metabolic encephalopathy, as both her serum sodium is 148 and ammonia level is high at 92. The patient is known to have underlying liver disease due to liver cirrhosis secondary to nonalcoholic steatohepatitis. She has a multitude of other medical problems including hypertension, hyperlipidemia, and type 2 diabetes mellitus. I will reconcile all her medications. We will continue with lactulose and rifaximin. I will repeat her labs again this afternoon and tomorrow morning. TRICIA SWEET MD DR: MELANIA/eli JOB#: [id number] / [id number]
[2020-07-13] MEDS: INSULIN LISPRO 300 UNITS/3 ML VIAL. SQ SCH (17:00)
[2020-07-13 17:02] LABS: CALCIUM 9.7 mg/dL (8.5-10.1); CREATININE 0.8 mg/dL (0.6-1.0); GFR 72.2
[2020-07-13 19:55] VITALS: BP 161/69
[2020-07-13] MEDS: DOCUSATE SODIUM 100 MG CAPSULE PO SCH (21:00)
[2020-07-13] MEDS: rifAXIMin 550 MG TABLET PO SCH (21:27)
[2020-07-13] MEDS: GABAPENTIN 100 MG CAPSULE. PO SCH (21:27)
[2020-07-13] MEDS: ONDANSETRON ODT 4 MG TAB.RAPDIS PO SCH (21:27)
[2020-07-13] MEDS: METOPROLOL SUCC 24HR ER 25 MG TAB.ER.24H. PO SCH (21:28)
[2020-07-13] MEDS: INSULIN GLARGINE SYRINGE. SQ SCH (21:37)
[2020-07-13 23:49] VITALS: BP 162/79
[2020-07-14 02:53] VITALS: BP 157/78
--- NOTE | 2020-07-14 03:13 | NUR ---
Pt was admitted the rn hematology of 07/13. Pt received lactulose and ammonia level has improved from 92 to 24. Pt's mentation has somewhat improved this shift. Pt A/Ox2-3, intermittently confused. Able to make needs known. Up to BSC with SBA, multiple loose stools.
[2020-07-14 04:19] VITALS: BP 173/79
[2020-07-14] MEDS: LEVOTHYROXINE 137 MCG TABLET PO SCH (06:09)
[2020-07-14 06:18] LABS: HEMATOCRIT 41.9 % (36.0-47.0); HEMOGLOBIN 13.8 g/dL (12.0-15.5); RED BLOOD COUNT 4.28 x10^6/uL (3.50-5.40); RED CELL DISTRIBUTION WIDTH 14.6 % (11.5-14.5); WHITE BLOOD COUNT 5.6 x10^3/uL (4.0-11.0)
[2020-07-14 06:27] VITALS: BP 170/79
[2020-07-14 06:29] LABS: ALBUMIN 3.2 g/dL (3.4-5.0); ALBUMIN/GLOBULIN RATIO 0.8 (1.0-1.7); CREATININE 0.7 mg/dL (0.6-1.0); GFR 84.2; POTASSIUM 3.4 mmol/L (3.5-5.1); TOTAL BILIRUBIN 1.6 mg/dL (0.2-1.0)
[2020-07-14] MEDS: INSULIN LISPRO 300 UNITS/3 ML VIAL. SQ SCH ×3 (08:00→17:00)
[2020-07-14] MEDS: DOCUSATE SODIUM 100 MG CAPSULE PO SCH ×2 (08:04→20:24)
[2020-07-14] MEDS: CHOLECALCIFEROL (VITAMIN D3) 1,000 UNIT TABLET PO SCH (08:04)
[2020-07-14] MEDS: ONDANSETRON ODT 4 MG TAB.RAPDIS PO SCH ×3 (08:04→20:23)
[2020-07-14] MEDS: rifAXIMin 550 MG TABLET PO SCH ×2 (08:05→20:24)
[2020-07-14] MEDS: GABAPENTIN 100 MG CAPSULE. PO SCH ×2 (08:05→20:24)
[2020-07-14] MEDS: MULTIVITAMIN with MINERAL TABLET. PO SCH (08:05)
[2020-07-14] MEDS: CETIRIZINE HCL 10 MG TABLET PO SCH (08:06)
[2020-07-14] MEDS: CYANOCOBALAMIN (VITAMIN B-12) 1,000 MCG TABLET. PO SCH (08:06)
[2020-07-14] MEDS: LISINOPRIL 20 MG TABLET PO SCH (08:06)
[2020-07-14] MEDS: buPROPion SR 150 MG TABLET.SA PO SCH (08:06)
[2020-07-14] MEDS: METOPROLOL SUCC 24HR ER 25 MG TAB.ER.24H. PO SCH ×3 (08:06→21:00)
[2020-07-14] MEDS: ASPIRIN ENTERIC COATED 81 MG TABLET.DR. PO SCH (08:06)
[2020-07-14] MEDS: LACTULOSE 20 GM/30 ML SOLUTION. PO SCH (08:07)
[2020-07-14] MEDS: FLUTICASONE 50MCG/NASAL SPRAY 16GM BOTTLE. NS SCH (08:07)
[2020-07-14] MEDS: PANTOPRAZOLE 40 MG TABLET. PO SCH (08:08)
[2020-07-14] MEDS: INSULIN GLARGINE SYRINGE. SQ SCH ×2 (08:09→20:42)
[2020-07-14 11:00] VITALS: BP 170/77
--- NOTE | 2020-07-14 12:15 | PN ---
DATE: 07/14/2020 ATTENDING PHYSICIAN: Dr. Ruelas. SUBJECTIVE: More alert today. She is still bedridden and requires 24-hour care. She is a fall risk. Her mentation is questionable. I do not know what her baseline is. OBJECTIVE FINDINGS: VITAL SIGNS: Blood pressure today is 170/79, pulse 70 and regular, temperature 96.8, oxygen saturation 95% on room air. HEENT: Head is without trauma. Pupils are reactive. Sclerae nonicteric. The oropharynx is clear. NECK: Supple, no bruits. LUNGS: Shallow respirations. CARDIOVASCULAR: Showed regular heart tones. No gallops. ABDOMEN: Obese, protuberant. No organomegaly. Bowel sounds are hypoactive. EXTREMITIES: Showed trace edema. NEUROLOGIC: Pleasantly confused, responsive, answers some questions. SKIN: Warm and dry. LABORATORY DATA: Potassium is still 3.4 mEq, creatinine 0.7 mg percent. Ammonia level is down to 47. ASSESSMENT: 1. A 65-year-old female with hepatic encephalopathy. 2. Noncompliance of medications. 3. Nonalcoholic steatohepatitis. 4. Frequent admissions with hepatic encephalopathy. 5. Hypernatremia due to free water deficit. 6. Labile hypertension. PLAN: 1. Continue lactulose as ordered. 2. Serial chemistries. 3. Diet as tolerated. 4. Social service consult. She will need a higher level of care. She has had multiple admissions due to noncompliance of meds. JESSICA ROUSE MD DR: AYDEE/eli JOB#: [id number] / [id number]
[2020-07-14 15:00] VITALS: BP 156/66
[2020-07-14 20:35] VITALS: BP 150/61
[2020-07-15] MEDS: LEVOTHYROXINE 137 MCG TABLET PO SCH (05:39)
[2020-07-15 05:50] VITALS: BP 132/62
[2020-07-15] MEDS: ASPIRIN ENTERIC COATED 81 MG TABLET.DR. PO SCH (08:22)
[2020-07-15] MEDS: rifAXIMin 550 MG TABLET PO SCH (08:22)
[2020-07-15] MEDS: CETIRIZINE HCL 10 MG TABLET PO SCH (08:22)
[2020-07-15] MEDS: LISINOPRIL 20 MG TABLET PO SCH (08:22)
[2020-07-15] MEDS: DOCUSATE SODIUM 100 MG CAPSULE PO SCH (08:23)
[2020-07-15] MEDS: GABAPENTIN 100 MG CAPSULE. PO SCH (08:23)
[2020-07-15] MEDS: PANTOPRAZOLE 40 MG TABLET. PO SCH (08:23)
[2020-07-15] MEDS: buPROPion SR 150 MG TABLET.SA PO SCH (08:23)
[2020-07-15] MEDS: METOPROLOL SUCC 24HR ER 25 MG TAB.ER.24H. PO SCH (08:23)
[2020-07-15] MEDS: ONDANSETRON ODT 4 MG TAB.RAPDIS PO SCH (08:23)
[2020-07-15] MEDS: LACTULOSE 20 GM/30 ML SOLUTION. PO SCH (08:24)
[2020-07-15] MEDS: MULTIVITAMIN with MINERAL TABLET. PO SCH (08:24)
[2020-07-15] MEDS: CYANOCOBALAMIN (VITAMIN B-12) 1,000 MCG TABLET. PO SCH (08:24)
[2020-07-15] MEDS: CHOLECALCIFEROL (VITAMIN D3) 1,000 UNIT TABLET PO SCH (08:24)
[2020-07-15] MEDS: INSULIN LISPRO 300 UNITS/3 ML VIAL. SQ SCH (08:28)
[2020-07-15] MEDS: INSULIN GLARGINE SYRINGE. SQ SCH (08:28)
[2020-07-15] MEDS: FLUTICASONE 50MCG/NASAL SPRAY 16GM BOTTLE. NS SCH (08:29)
--- NOTE | 2020-07-15 10:17 | DS ---
DATE OF DISCHARGE: 07/15/2020 ATTENDING PHYSICIANS: Dr. Ruelas and Dr. Rouse. FINAL DISCHARGE DIAGNOSES: 1. Hepatic encephalopathy, recurrent. 2. Noncompliance of meds. 3. Cirrhosis of the liver. 4. Tentative diagnosis of nonalcoholic steatohepatitis. 5. Generalized debilitation. 6. Type 2 diabetes mellitus. 7. Essential hypertension. 8. Hypernatremia due to water deficit, improved. HISTORY AND PHYSICAL: The patient is a 65-year-old female who has a diagnosis of cirrhosis due to nonalcoholic steatohepatitis. She is somewhat forgetful and has not been compliant with her medication. She has been taking her lactulose. I got a hold of her brother and [id number] who are the primary biomedical engineering technologist then has durable power of state's attorney. They have been caring for the last 5 years in their house. They have expressed they have no intention to sending her to a long-term, exact reality is a little bit unclear. In any event, they want her home. They told me that she was not taking the lactulose because of the taste. She is also on other medications and she is quite forgetful. In the hospital setting in a controlled environment with giving her medications, she has had her sensorium cleared up. She is still a bit forgetful, but she is otherwise alert. PHYSICAL EXAMINATION: Please see the dictated note. PERTINENT LABORATORY AND X-RAY STUDIES: On this admission, her hemoglobin was stable at 14.3 g/dL, platelets are 102,000 without any bleeding diathesis, white count is 5000. Sodium was 148 mEq/L, potassium 3.4, chloride 110, creatinine 0.7 mg percent, nonfasting blood sugar 150. Total bilirubin is 1.6. Transaminases were normal. Alkaline phosphatase is 90. Serum ammonia level was 47. COURSE IN THE HOSPITAL: The patient was admitted. She had her Xifaxan and lactulose continued. Diet was advanced. Insulin administered and she did better. By the third hospital day, her vital signs were quite stable. She was back to her baseline. Her blood pressure was 132/62, pulse is 67 and regular. She is afebrile and oxygen saturation 95% on room air. I had a long discussion with her caretakers and they plan on taking her home. I wrote scripts to make sure that she takes her lactulose 30 mL p.o. b.i.d. and her Xifaxan 550 mg p.o. b.i.d. In addition, her meds have been simplified. She should continue her aspirin 81 mg daily, Trulicity 1.5 mg weekly, insulin regular and Lantus, lactulose 20 g/30 mL p.o. b.i.d., Synthroid 137 mcg daily, lisinopril 40 mg daily, metoprolol 25 mg daily, ____ 550 mg b.i.d., and omeprazole 40 mg p.o. daily. For now, I took the liberty of stopping her bupropion, Zyrtec, vitamin D3, docusate, fluticasone, Neurontin, multivitamin and Zofran doses. I suggested she will follow up with Dr. Underwood at the regular scheduled time hopefully in the next 2-3 weeks for recheck. The patient was then discharged from our hospital in stable condition with explicit instructions and followup care. Total discharge time spent 38 minutes. JESSICA ROUSE MD DR: AYDEE/eli JOB#: [id number] / [id number] Dr. CESAR Harris
[2020-07-15 11:05] VITALS: BP 144/64
--- NOTE | 2020-07-15 11:10 | NUR ---
Pt discharged to home, reviewed discharge paperwork with brothlashawn Saeed-medications to continue, mediations to discontinue, home health agency. Brother agreed with plan of care-all paperwork signed. Pt alert to self and situation, she is back to baseline according to brother.
[2020-07-20] MEDS ORDERED: NON FORMULARY ITEM (Dulaglutide (Trulicity) 1.5 MG) SQ SCH (09:00)
== END 2020-07-15 11:10 | disposition home health service (06) | DRG 441 ==
LOC: ER 01:54 → ICU 04:26
PROVIDERS: ADMIT Internal Medicine; ATTEND Internal Medicine
DX: K72.90 Hepatic failure, unspecified without coma (principal); N17.0 Acute kidney failure with tubular necrosis; G93.41 Metabolic encephalopathy; E87.0 Hyperosmolality and hypernatremia; E87.4 Mixed disorder of acid-base balance; F17.210 Nicotine dependence, cigarettes, uncomplicated; E03.9 Hypothyroidism, unspecified; E11.9 Type 2 diabetes mellitus without complications; E78.00 Pure hypercholesterolemia, unspecified; E78.5 Hyperlipidemia, unspecified; E87.5 Hyperkalemia; I10 Essential (primary) hypertension; K74.60 Unspecified cirrhosis of liver; E05.90 Thyrotoxicosis, unspecified without thyrotoxic crisis or storm; F32.9 Major depressive disorder, single episode, unspecified; K21.9 Gastro-esophageal reflux disease without esophagitis; K75.81 Nonalcoholic steatohepatitis (NASH); Z74.01 Bed confinement status; Z79.4 Long term (current) use of insulin; Z79.82 Long term (current) use of aspirin; Z79.899 Other long term (current) drug therapy; Z80.9 Family history of malignant neoplasm, unspecified; Z83.3 Family history of diabetes mellitus; Z90.49 Acquired absence of other specified parts of digestive tract; Z90.710 Acquired absence of both cervix and uterus; Z91.14 Patient's other noncompliance with medication regimen
CPT/HCPCS: 36415; 70450; 71045; 74176; 80048; 80053; 81001; 82140; 82803; 82947; 83605; 83690; 83735; 84443; 84484; 85025; 85027; 85610; 85730; 87040; 90471; 90686; 93005; 96365; 96368; J1815; J1956; J3490; Q0162; 99285-25; J7030

== ENCOUNTER → 2021-07-08 | Outpatient (CLI) | payer MEDICARE ==
[~2021-07-08] MED LIST changes: -CYCL-331 PO; +CYCL10TA19 PO; -EMPA25TA PO; +EMPA25TA3 PO; +FLUT15.812 NS; +GABA-585 PO; -LISI1TAB20 PO; -LISI1TAB23 PO; +LISI1TAB35 PO; +LISI1TAB39 PO; -OMEP40CA45 PO; +OMEP40CA7 PO; +POTA-121 PO; -POTA20TA4 PO
--- NOTE | 2021-07-08 12:08 | RAD ---
INDICATION : Routine Screening. COMPARISON: [facility]ors including August 2016 TECHNIQUE: Standard mammogram screening views of the bilateral breasts were obtained. CAD was utilize d. FINDINGS: The breasts are scattered density. No definite suspicious mass. IMPRESSION: BI-RADS Category 1: Negative. Recommend repeat screening examination in one year. The patient was placed into the recall system with a suggested recall date for follow up imaging. Mammography is the most sensitive method for finding small breast cancers, but it does not detect the m all and is not a substitute for careful clinical examination. A negative mammogram does not negate a clinically suspicious finding and should not result in delay in biopsying a clinically suspicious abnormality. Electronically signed by: Alex Davis MD (07/08/2021 12:06 PM) [id number]
== END ==
LOC: MAMMO 10:11
PROVIDERS: ATTEND Family Medicine
DX: Z12.31 Encounter for screening mammogram for malignant neoplasm of breast (principal)
CPT/HCPCS: 77067

== ENCOUNTER 2021-07-27 03:38 | Emergency (ER) | payer MEDICARE ==
[~2021-07-27] VITALS: Ht 162.6 cm; Wt 109.4 kg
[2021-07-27] MEDS ORDERED: IOHEXOL 350 MG/ML 100 ML VIAL. ONE (03:53)
[2021-07-27] MEDS ORDERED: FLUMAZENIL 0.5 MG/5 ML VIAL. IV ONE ×2 (04:17→06:00)
[2021-07-27] MEDS ORDERED: NALOXONE 2 MG/2 ML DISP.SYRIN. ONE (04:17)
[2021-07-27] MEDS ORDERED: DEXTROSE 50% 25 GM / 50ML DISP.SYRIN. IV ONE ×2 (04:17→06:00)
[2021-07-27 04:40] LABS: CALCIUM 9.5 mg/dL (8.5-10.1); GFR 55.6; POTASSIUM 3.6 mmol/L (3.5-5.1)
[2021-07-27 04:45] LABS: BASO # 0.1 x10^3/uL (0.0-0.2); BASO % 1 % (0-3); EOS # 0.1 x10^3/uL (0.0-0.7); EOS % 1 % (0-3); HEMATOCRIT 39.5 % (36.0-47.0); HEMOGLOBIN 13.2 g/dL (12.0-15.5); LYMPH # 1.6 x10^3/uL (1.0-4.8); LYMPH % 36 % (24-48); MEAN CORPUSCULAR HEMOGLOBIN 33 pg (25-35); MEAN CORPUSCULAR HGB CONC 33 g/dL (31-37); MEAN CORPUSCULAR VOLUME 99 fL (79-100); MONO # 0.6 x10^3/uL (0.0-1.1); MONO % 14 % (0-9); NEUT # 2.1 x10^3uL (1.8-7.7); NEUT % 48 % (31-73); PLATELET COUNT 112 x10^3/uL (140-400); RED CELL DISTRIBUTION WIDTH 14.3 % (11.5-14.5); WHITE BLOOD COUNT 4.5 x10^3/uL (4.0-11.0)
[2021-07-27 04:46] LABS: BARBITURATES NEG (NEG); BENZODIAZEPINES NEG (NEG); CANNABINOIDS NEG (NEG); COCAINE NEG (NEG); METHADONE NEG (NEG); OPIATES NEG (NEG); PHENCYCLIDINE NEG (NEG)
--- NOTE | 2021-07-27 04:46 | PHYS DOC ---
Past History Past Medical History: Depression, Diabetes, High Cholesterol, Hypertension, Hypothyroid, Liver Disease, Stroke Past Surgical History: Appendectomy, Cholecystectomy, , Hysterectomy, Tonsillectomy, Other Alcohol Use: None Drug Use: None Adult General Chief Complaint Chief Complaint: ALTERED MENTAL STATUS HPI HPI Patient is a 66-year-old female who past medical history of previous stroke, insulin-dependent diabetes, liver disease, hypertension, hyperlipidemia who presents from home unresponsive. Per EMS family stated that her last known well was 7:30 PM last night when she went to sleep. States that family tried to wake her up but she would not respond. Her family, no recent travels, traumas, illnesses, fevers. Does have a history of hepatic encephalopathy. Review of Systems Review of Systems Unable to answer due to patient condition Current Medications Current Medications Current Medications Medications (Trade) Dose Ordered Sig/Akbar Start Time Stop Time Status Last Admin Dose Admin Dextrose (Dextrose 50%-Water Syringe) 25 gm STK-MED ONCE 07/27/21 04:17 07/27/21 04:17 DC Flumazenil (Romazicon) 0.5 mg STK-MED ONCE 07/27/21 04:17 07/27/21 04:17 DC Naloxone HCl (Narcan) 2 mg STK-MED ONCE 07/27/21 04:17 07/27/21 04:17 DC Allergies Allergies Allergies Coded Allergies Type Severity Reaction Last Updated Verified cephalexin Allergy Intermediate 08/02/18 No codeine Allergy Intermediate 08/02/18 No dapagliflozin Allergy Intermediate 08/02/18 No iodine Allergy Intermediate HIVES, contrast OK when premedicated 08/02/18 Yes Physical Exam Physical Exam Constitutional: Obese, in acute distress, unresponsive to stimuli HENT: Normocephalic, atraumatic, bilateral external ears normal, oropharynx moist, no oral exudates, nose normal. [] Eyes: 3 mm, fixed and sluggish to light, mild corneal reflex response bilaterally Neck: Normal range of motion, Cardiovascular:Heart rate regular rhythm, no murmur [] Lungs & Thorax: Bilateral breath sounds clear to auscultation [] Abdomen: soft, no tenderness, Skin: Warm, dry, some scattered probable fungal infections under her pannus, obvious bedbugs Back: No obvious injuries, bruising Extremities: no clubbing, ROM intact, lower extremity petechiae Neurologic: GCS of 6 (E to, V2, M2), no movement of extremities on pinprick or touch, weak corneal reflex bilaterally, no Babinski response in either direction, no gaze deviation, no facial droop EKG EKG [] Radiology/Procedures Radiology/Procedures [] Heart Score C/O Chest Pain: N/A Risk Factors: Risk Factors: DM, Current or recent (<one month) smoker, HTN, HLP, family history of CAD, obesity. Risk Scores: Risk Factors: DM, Current or recent (<one month) smoker, HTN, HLP, family history of CAD, obesity. Course & Med Decision Making Course & Med Decision Making Patient is a 66-year-old female who presents to the emergency department via EMS after found in bed unresponsive with last known well at 7:30 PM EMS blood sugar recorded greater than 150 but on arrival 65. Vital signs surprisingly normal for patient's unresponsiveness. Given D50 with no response. Given total of 4 g Narcan with no response given Romazicon with no response. GCS remained at 6. no obvious traumas. Patient does have significant history of hepatic encephalopathy. Blood gas surprisingly normal with a pH of 7.4 PCO2 of 41 PO2 of 116 bicarb of 27 and lactate of 1.7. Given all this information, patient is GCS of 6, unresponsiveness and concern that patient's condition will deteriorate and have trouble maintaining her airway she was intubated for protection. 7.5 ET tube and a size 4 video laryngoscope blade. Stylette used. Etomidate and rocuronium. Propofol and fentanyl post sedation package. NG tube placed. Nova placed. Given a dose of antibiotics as sepsis is on differential diagnosis with blood cultures obtained. Rest of patient's care handed off to day team. Dr. Alcantara did accept to [facility] but patient family wanted us to try [facility]. [] Dragon Disclaimer Dragon Disclaimer This electronic medical record was generated, in whole or in part, using a voice recognition dictation system. Departure Departure: Impression: Primary Impression: Altered mental status Additional Impression: Hypoglycemia Disposition: 02 [facility] Admitting Physician: Other Condition: GUARDED Referrals: CESAR CARDOZA (PCP) Problem Qualifiers MARY LOU HUGHES MD Jul 27, 2021 04:46
[2021-07-27 04:49] LABS: AMPHETAMINE/METHAMPHETAMINE NEG (NEG)
--- NOTE | 2021-07-27 04:49 | RAD ---
CT head without contrast PQRS statement: CT scans at this facility use dose reduction including either automated exposure cont rol, iterative reconstructions, and /or weight based radiation dosing via mA and kV modification when appropriate to reduce radiation dose to as low as reasonably achievable. HISTORY: Code stroke. Unresponsive. Slurred speech. FINDINGS: No intracranial hemorrhage, mass, hydrocephalus, extra-axial fluid collections or infarctio n. Orbits, mastoids and bones are unremarkable. IMPRESSION: Normal exam. FOR INTERNAL CODING PURPOSES Critical result: Findings discussed with the ED physician at 07/27/2021 3:45 AM. RESULT CODE: (C) Electronically signed by: Anthony Mcarthur MD (07/27/2021 4:47 AM) [facility]
[2021-07-27 04:52] LABS: ACETAMIN < 2.0 mcg/mL (10-30); ETHANOL < 10 mg/dL (0-10)
[2021-07-27 04:53] LABS: ALBUMIN/GLOBULIN RATIO 0.9 (1.0-1.7); MAGNESIUM 2.1 mg/dL (1.8-2.4); TOTAL BILIRUBIN 0.9 mg/dL (0.2-1.0); TOTAL PROTEIN 6.2 g/dL (6.4-8.2)
--- NOTE | 2021-07-27 04:58 | RAD ---
CT angiography head and neck with contrast Stenosis calculations for CT, MR, and conventional angiography are based upon measurements of the dis suad ICA diameter in accordance with the NASCET methodology. Stenosis calculations for carotid ultraso und studies are derived from validated velocity criteria which are known to correlate with the NASCET methodology. PQRS statement: CT scans at this facility use dose reduction including either automated exposure cont rol, iterative reconstructions, and /or weight based radiation dosing via mA and kV modification when appropriate to reduce radiation dose to as low as reasonably achievable. Contrast: 75 mL Omnipaque 350 intravenous contrast with 3-D MIP reconstructions of the arteries acqui red. HISTORY: Code stroke, unresponsive, slurred speech. CTA neck findings: Calcified plaque in the aortic arch about the ostiomeatal vessels without signific ant ostial stenosis. Left vertebral artery origin is from the aortic arch. Right vertebral artery is mildly dominant. No thrombus, dissection, stenosis or occlusion of the vertebral arteries and the nec k. Left carotid artery demonstrates a retropharyngeal segment, calcified plaque in the bifurcation witho ut significant stenosis with narrowing of 25%. No dissection, thrombus or occlusion. Right carotid artery demonstrates and retropharyngeal segment, calcified plaque in the common carotid artery as well as at the bifurcation without significant stenosis with narrowing of the proximal ICA by approximately 30-35% with minimal luminal diameter of 2.7 mm relative to the normal downstream di ameter of 4 mm the ICA. No dissection, thrombus or occlusion. 3 mm right upper pole solid nodule image 149. CTA head findings: Mild calcified plaque right vertebral artery without significant stenosis. Patent right posterior indicating artery. Left posterior cerebral artery P2 segment demonstrates a moderate focal stenosis on coronal image 116 likely due to some soft plaque without a well-defined filling def ect to suggest nonocclusive thrombus. Calcified plaque cavernous carotid arteries without significant stenosis. No occlusion or aneurysm of the intracranial arteries. IMPRESSION: 1. No large vessel occlusion. 2. Focal moderate stenosis of the left posterior cerebral artery P2 segment. This is most likely rela cely to focal soft plaque. Given the absence of a well-defined filling defect a nonocclusive thrombus is considered less likely. 3. Calcified plaquing of the arteries of the head and neck as described above. 4. 3 mm solid pulmonary nodule of the right upper lobe. Per Fleischner guidelines if the patient has risk factors for malignancy optional CT chest imaging follow-up in 12 months should be considered, ot kenn no follow-up is necessary. FOR INTERNAL CODING PURPOSES Critical result: Findings discussed with the ED physician at 07/27/2021 4:15 AM. RESULT CODE: (C) Electronically signed by: Anthony Mcarthur MD (07/27/2021 4:56 AM) [facility]
[2021-07-27 05:03] LABS: BACTERIA,URINE FEW /HPF (0-FEW); CLARITY,URINE CLEAR; COLOR,URINE YELLOW; GLUCOSE,URINE NEG (NEG); NITRITE,URINE NEG (NEG); SQUAMOUS EPITHELIAL CELL,UR MOD /LPF
[2021-07-27 05:04] LABS: HYALINE CASTS, URINE MANY /HPF
[2021-07-27] MEDS ORDERED: CONTRAST GIVEN. MC PRN (05:15)
[2021-07-27] MEDS ORDERED: IOHEXOL 350 MG/ML 100 ML VIAL. IV ONE (05:30)
[2021-07-27] MEDS ORDERED: IV RINGERS SOLUTION,LACTATED 1,000 ML IV ONE (05:30)
[2021-07-27 05:32] LABS: SALIC < 2.0 mg/dL (2.8-20.0)
[2021-07-27] MEDS ORDERED: NALOXONE 2 MG/2 ML DISP.SYRIN. IV ONE (06:00)
[2021-07-27] MEDS ORDERED: ROCURONIUM 50 MG/5 ML VIAL. ONE (06:00)
[2021-07-27 06:15] LABS: BGAS PH 7.43 (7.35-7.45)
--- NOTE | 2021-07-27 06:15 | RAD ---
AP chest x-ray HISTORY: Unresponsive, slurred speech, tube check. COMPARISON: Chest x-ray July 13, 2020 FINDINGS: Endotracheal tube tip 1 cm above the anish. Nasogastric tube extends to the abdomen with t he tip coiled retrograde back to the region of the diaphragmatic hiatus may be positioned at the nica roesophageal junction. Heart size stable. No pneumothorax. Small left pleural effusion along the diap hragm blunting the costophrenic angle and basilar left lower lobe opacity. Right lung is clear. Bones unremarkable. IMPRESSION: Lines and tubes as described above. Small left pleural effusion along the diaphragm and b asilar left lower lobe atelectasis/infiltrate. Electronically signed by: Anthony Mcarthur MD (07/27/2021 6:12 AM) [facility]
[2021-07-27] MEDS ORDERED: PROPOFOL 100 ML IV ONE (06:16)
[2021-07-27] MEDS: LACTULOSE 20 GM/30 ML SOLUTION. PO ONE ×2 (06:30→06:35)
[2021-07-27] MEDS ORDERED: PROPOFOL 100 ML IV PRN (06:30)
[2021-07-27 06:45] VITALS: BP 183/73
[2021-07-27] MEDS ORDERED: ROCURONIUM 50 MG/5 ML VIAL. IV ONE ×2 (07:00→07:45)
[2021-07-27] MEDS ORDERED: ETOMIDATE 40 MG/20 ML VIAL. INJ ONE (07:00)
[2021-07-27] MEDS ORDERED: MIDAZOLAM HCL PF 5 MG/5 ML VIAL. ONE (07:25)
[2021-07-27] MEDS ORDERED: MIDAZOLAM HCL PF 5 MG/5 ML VIAL. IV ONE (07:45)
--- NOTE | 2021-07-27 21:07 | EKG ---
[address] [address] Test Date: 2021-07-27 Test Time: 04:34:27 Pat Name: JW HOLLAND Department: Room: Gender: F Research Aide: : 1955 Requested By: MARY LOU HUGHES Order Number: [id number] Reading MD: Measurements Intervals Jakin Rate: 75 P: 52 SC: 176 QRS: 45 QRSD: 86 T: 41 QT: 444 QTc: 499 Interpretive Statements SINUS RHYTHM QRS(T) CONTOUR ABNORMALITY CONSIDER ANTEROLATERAL MYOCARDIAL DAMAGE PROLONGED QT POSSIBLY ABNORMAL ECG RI6.01 No previous ECG available for comparison
== END 2021-07-27 07:17 | disposition short-term general hospital (02) ==
LOC: ER 03:38
DX: E11.649 Type 2 diabetes mellitus with hypoglycemia without coma (principal); R41.82 Altered mental status, unspecified; E78.00 Pure hypercholesterolemia, unspecified; I10 Essential (primary) hypertension; E03.9 Hypothyroidism, unspecified; E78.5 Hyperlipidemia, unspecified; Z20.822 Contact with and (suspected) exposure to COVID-19; Z86.73 Personal history of transient ischemic attack (TIA), and cerebral infarction without residual deficits; Z88.1 Allergy status to other antibiotic agents; Z88.5 Allergy status to narcotic agent; Z88.8 Allergy status to other drugs, medicaments and biological substances
CPT/HCPCS: 31500; 36415; 51702; 70450; 70496; 70498; 71045; 80053; 80307; 80329; 81001; 82140; 82550; 82803; 83605; 83735; 83880; 84484; 85025; 85610; 85730; 87040; 87086; 87426; 93005; 96365; 96375; 99285; C9803; G0480; J1956; J2250; J2310; J2704; J3490; J7120; Q9967; U0003; 94002

== ENCOUNTER → 2021-08-25 | Outpatient (CLI) | payer MEDICARE ==
[2021-07-27 06:45] VITALS: BP 183/73
[~2021-08-25] MED LIST changes: -BUPR150T11 PO; +BUPR150T24 PO
--- NOTE | 2021-08-25 09:46 | RAD ---
Left lower extremity venous duplex study Clinical History: Left leg pain. History of DVT. Technique: Using a combination of real time ultrasound imaging and color-flow and pulse Doppler imagi ng techniques, including spectral analysis, graded compression and augmentation, duplex evaluation of the deep venous system of the left lower extremity was performed. Multiple images were obtained. Findings: There is no sonographic evidence of deep venous thrombosis involving the visualized deep ve nous structures of the left lower extremity Impression: No evidence of deep venous thrombosis involving the left lower extremity Electronically signed by: Blayne Singh MD (08/25/2021 9:44 AM) [id number]
== END ==
LOC: US 08:50
PROVIDERS: ATTEND Family Medicine
DX: M79.605 Pain in left leg (principal)
CPT/HCPCS: 93971